=== PATIENT | female | born 2000 | race Caucasian/White ===

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

== ENCOUNTER 2020-02-28 12:04 | Emergency (ER) | payer OTHER, SELFPAY ==
[2020-02-07 13:10] VITALS: BMI 28.3
[2020-02-28 12:06] VITALS: BP 137/78; PULSE 120; RESP 18; TEMP 37.2; O2SAT 99; BMI 35.4
[2020-02-28 12:26] LABS: Absolute Lymphocyte Count 3.07 X10^3/uL (0.83-4.51); Absolute Neutrophil Count 4.7 X10^3/uL (2.0-7.7); Basophil# 0.05 X10^3/uL; Basophil% 0.6 % (0-1); Eosinophil# 0.12 X10^3/uL; Eosinophils% 1.4 % (0-5); Hematocrit 44.9 % (37-47); Hemoglobin 14.5 g/dL (12.0-15.0); Lymphocyte # 3.07 X10^3/ul (4.0); Lymphocyte % 36.4 % (19-41); Mean Corp Hgb Conc 32.3 g/dL (32-36); Mean Corpuscular Hgb 27.3 pg (27.0-32.0); Mean Corpuscular Volume 84.4 fL (81-99); Mean Platelet Vol. 9.2 fl (6.2-12.0); Monocyte# 0.45 X10^3/uL; Monocyte% 5.3 % (0-10); NRBC Flagged by Analyzer 0 % (0-5); Neutrophil # 4.73 X10^3/uL (2.7-7.7); Neutrophil % 56.1 % (47-70); Platelet Count 323 K/mm3 (150-450); RBC Distribution Width CV 13.2 % (11.6-14.6); RBC Distribution Width SD 40.4 fl (35.1-43.9); Red Blood Count 5.32 M/mm3 (4.2-5.4); White Blood Count 8.4 K/mm3 (4.4-11.0)
--- NOTE | 2020-02-28 12:46 | ED.VISSUMM ---
- ER Visit Summary Date of Service: 02/28/20 Chief Complaint: Abdominal pain History of Present Illness: The patient is a 19 F who presents with abdominal pain that began yesterday evening. Patient states pain is over the right upper quadrant and right mid abdomen. Patient states her pain is constant aching. Patient states it is worse after eating and with movement. Patient states it is also worse with coughing and deep breathing. Patient admits to some nausea but denies any vomiting. Patient denies any hematemesis or coffee-ground emesis. Patient admits to some diarrhea but denies any melena or hematochezia. Patient denies any dysuria or hematuria. Physical Examination: Vital signs are stable. Patient is afebrile. Patient is in no acute distress. Oral mucosa is pink and moist. Neck is supple. Trachea is midline. There is no JVD. Heart was regular rate and rhythm. Lungs are clear and equal bilaterally. Abdomen is soft. Bowel sounds are normal. There is right upper and right mid abdominal tenderness. There is no rebound or guarding noted. Cranial nerves II through XII are intact. There are no focal motor or sensory deficits noted peer extremities are intact. There is no calf tenderness or edema. Test Results: CBC and comprehensive metabolic profile were within normal limits. Lipase was normal. Urinalysis does not show any evidence of urinary tract infection. Emergency Department Course and Treatment: Patient was given IV fluids. Patient was feeling better on reevaluation. Patient was texting on her phone on reevaluation. Patient was advised of her lab results. Patient was given a prescription for Prilosec. Patient was also given a prescription for Zofran to take as needed. Patient was instructed to start with a liquid diet and advance as tolerated. Patient was instructed to follow-up with her primary care physician in 5 to 7 days for further evaluation. Patient understood and was agreeable with the plan. All questions were answered. Disposition: Discharge home Impression: Abdominal pain This note was generated with [employer] dictation software. It may contain incorrect words, spelling, and punctuation that were not noted in review of the chart prior to signing ED Disposition - Plan for ED Patient: Disposition: Home or Assisted Living Diagnosis: Abdominal pain Instructions: ED Abdominal Pain Unkn Cause Fem Prescriptions: Omeprazole [Prilosec] 20 mg PO DAILY #30 cap Prescription Printed Ondansetron [Zofran Odt] 4 mg PO Q8H PRN PRN #10 tab PRN Reason: Nausea Prescription Printed Referrals: Panda Truong MD [STAFF PHYSICIAN] - 5-7 Days
[2020-02-28 12:47] LABS: Anion Gap 6 (5-15); BUN 12 mg/dL (7-18); BUN/Creat Ratio 13.9 RATIO (10-20); Calcium,Total 9.4 mg/dL (8.5-10.1); Chloride 107 mmol/L (98-107); Creatinine, Serum 0.86 mg/dL (0.55-1.02); EST Glomerular Filtration Rate 89 mL/min (>60); Est Glom Filt Rate - Afr Amer 108 mL/min (>60); Glucose 80 mg/dL (74-106); Potassium 4.6 mmol/L (3.5-5.1); Sodium Level 138 mmol/L (136-145)
[2020-02-28] MEDS: 0.9% Normal Saline 1,000 ML 1000 ML IV (12:53)
[2020-02-28] MEDS: Ondansetron 4 MG/2 ML Vial IV (12:53)
[2020-02-28 12:55] VITALS: BP 137/78; PULSE 120; RESP 18; TEMP 37.2; O2SAT 99
[2020-02-28 13:44] LABS: Mucous, Urine 0 SEEN /hpf (<or=2+); Red Blood Cells-Urine 0 SEEN /hpf (0-5)
[2020-02-28 13:45] LABS: Color, Urine Yellow (Yellow); Glucose, Dipstick Normal (Normal); Ketone-Dipstick 5 mg/dl (Negative); Leukocyte Esterase-Dipstick 100 /ul (Negative); Nitrite-Dipstick Negative (Negative); Occult Blood-Urine Negative /ul (Negative); Protein-Dipstick Negative (Negative); Specific Gravity, Urine 1.025 (1.002-1.030); Urine Bilirubin Dipstick Negative (Negative); Urine Clarity Cloudy (Clear); Urine Urobilinogen Normal (Normal)
[2020-02-28 13:56] LABS: Bacteria 1+ /hpf (None Seen); Squamous Epithelial Cells - UA 0-5 SEEN /hpf (5-10); White Blood Cells 0-5 SEEN /hpf (0-5)
[2020-02-28 13:59] LABS: Internal QC Validated? YES +Cl - CLEAR BKGD; Pregnancy, Urine Negative Negative
[2020-02-28 14:14] VITALS: BP 128/64; PULSE 74; RESP 16; O2SAT 99
[2020-02-28 14:24] LABS: AST(SGOT) 31 U/L (15-37); Alanine Aminotransfer ALT/SGPT 24 U/L (13-56); Albumin, Serum 3.8 g/dL (3.2-5.0); Alkaline Phosphatase 68 U/L (45-117); Bilirubin, Direct 0.08 mg/dL (0.00-0.30); Globulin 4.7 g/dL (2.2-4.2); Lipase 98 U/L (73-393); Protein, Total 8.5 g/dL (6.4-8.2)
[2020-02-28 15:45] VITALS: BP 128/79; PULSE 81; RESP 18; O2SAT 99
--- NOTE | 2020-02-28 15:46 | ED.RN ---
THIS NURSE REVIEWED D/C INSTRUCTIONS WITH PT. PT VERBALIZED UNDERSTANDING OF INSTRUCTIONS. IV D/C. IV CATHETER INTACT. PT TOLERATED WELL. PT DENIES FURTHER NEEDS OR QUESTIONS AT THIS TIME. PT AMBULATES FROM ROOM ON OWN WITHOUT ASSISTANCE FROM STAFF
== END 2020-02-28 15:48 | disposition home or self-care (01) ==
PROVIDERS: Emergency Provider Emergency Medicine
DX: R10.11 Right upper quadrant pain (principal); E66.9 Obesity, unspecified; F17.290 Nicotine dependence, other tobacco product, uncomplicated
CPT/HCPCS: 80048; 80076; 81001; 81025; 83690; 85025; 96361; 96374; 99283; J7030; A4216; J2405

== ENCOUNTER → 2020-07-13 | Outpatient (CLI) | payer OTHER, SELFPAY ==
[2020-07-13 14:18] VITALS: BMI 37.0
[2020-07-13 20:34] LABS: Chlamydia Trachomatis by PCR Negative (Negative); Neisserai gonorrhoeae by PCR Negative (Negative); Probe Check PASS; Sample Adequacy Control PASS; Specimen Processing Control PASS
== END | disposition home or self-care (01) ==
LOC: LABSPEC 17:10
PROVIDERS: Referring Provider Nurse Practitioner Women's Health; Visit Provider Nurse Practitioner Women's Health
DX: R10.2 Pelvic and perineal pain (principal)
CPT/HCPCS: 87491; 87591

== ENCOUNTER → 2020-07-14 13:25 | Outpatient (CLI) | payer OTHER, SELFPAY ==
[2020-07-13 14:18] VITALS: BMI 37.0
--- NOTE | 2020-07-14 13:27 | US_ITS ---
STUDY: ULTRASOUND OF THE FEMALE PELVIS - COMPLETE REASON FOR EXAM: Female, 20 years old. INTERMITTENT BILAT PELVIC PAIN -- HEAVY MENSES LMP: 07/13/2020. TECHNIQUE: Transabdominal and Transvaginal TECHNICAL QUALITY: Adequate. COMPARISON: None. FINDINGS: The uterus is retroverted and is in a midline position. The uterus measures 10.7 cm x 6.1 cm x 3.6 cm. Normal uterine cervix. The endometrium measures 7 mm in thickness, and is hyperechoic. There is no demonstrated endometrial mass. There is no demonstrated myometrial mass. I.U.D. - The patient does not have an I.U.D. The right ovary is visualized. The right ovary measures 3.1 cm x 3 cm x 2.5 cm. There is no right ovarian cyst or ovarian mass. There is no visualized right adnexal mass or complex lesion. There is normal arterial and normal venous vascularity. The left ovary is visualized. The left ovary measures 4.5 cm x 4.1 centimeter x 2.1 cm. There is a 3.1 cm x 2 cm x 0.8 cm cyst in the left ovary with low-level echoes within it. This may represent a small hemorrhagic cyst. There is no visualized left adnexal mass or complex lesion. There is normal arterial and normal venous vascularity. There is no fluid in the cul-de-sac. US/Pelvic (Non ) IMPRESSION: 3.1 cm x 2 cm x 0.8 cm cyst in the left ovary with low-level echoes within it suggestive of a small hemorrhagic cyst. Follow-up is recommended. Electronically Signed: Chad Elizabeth, at 14:47 EST , Service support ,
--- NOTE | 2020-07-14 13:27 | US_ITS ---
STUDY: ULTRASOUND OF THE FEMALE PELVIS - COMPLETE REASON FOR EXAM: Female, 20 years old. INTERMITTENT BILAT PELVIC PAIN -- HEAVY MENSES LMP: 07/13/2020. TECHNIQUE: Transabdominal and Transvaginal TECHNICAL QUALITY: Adequate. COMPARISON: None. FINDINGS: The uterus is retroverted and is in a midline position. The uterus measures 10.7 cm x 6.1 cm x 3.6 cm. Normal uterine cervix. The endometrium measures 7 mm in thickness, and is hyperechoic. There is no demonstrated endometrial mass. There is no demonstrated myometrial mass. I.U.D. - The patient does not have an I.U.D. The right ovary is visualized. The right ovary measures 3.1 cm x 3 cm x 2.5 cm. There is no right ovarian cyst or ovarian mass. There is no visualized right adnexal mass or complex lesion. There is normal arterial and normal venous vascularity. The left ovary is visualized. The left ovary measures 4.5 cm x 4.1 centimeter x 2.1 cm. There is a 3.1 cm x 2 cm x 0.8 cm cyst in the left ovary with low-level echoes within it. This may represent a small hemorrhagic cyst. There is no visualized left adnexal mass or complex lesion. There is normal arterial and normal venous vascularity. There is no fluid in the cul-de-sac. US/Transvaginal Non- IMPRESSION: 3.1 cm x 2 cm x 0.8 cm cyst in the left ovary with low-level echoes within it suggestive of a small hemorrhagic cyst. Follow-up is recommended. Electronically Signed: Chad Elizabeth, at 14:47 EST , Service support ,
== END ==
LOC: OPUS 13:26
PROVIDERS: Referring Provider Nurse Practitioner Women's Health; Visit Provider Nurse Practitioner Women's Health
DX: R10.2 Pelvic and perineal pain (principal)
CPT/HCPCS: 76830; 76856; 93976

== ENCOUNTER 2020-12-02 23:21 | Emergency (ER) | payer OTHER, SELFPAY ==
[2020-11-01 10:36] VITALS: BMI 35.4
[2020-12-02 23:22] VITALS: BP 140/81; PULSE 126; RESP 18; TEMP 36; O2SAT 97; BMI 36.8
--- NOTE | 2020-12-02 23:42 | EX.ED.DYSGE1 ---
HPI History of Present Illness Chief Complaint: Abd Pain Narrative Narrative: Patient presents with left lower abdominal pain. She describes an achy pain most mainly when she sits and moves and bends. PFSH PFSH Home Medications desogestrel 0.15 mg-ethinyl estradiol 0.03 mg tablet 1 tab PO QDAY #84 tab 07/13/20 [Rx Last Taken Unknown] azithromycin 250 mg tablet See Rx Instructions PO .COMPLEX #6 tab 11/01/20 [Rx Last Taken Unknown] ondansetron HCl 4 mg tablet 4 mg PO Q8H PRN #10 tab 11/01/20 [Rx Last Taken Unknown] Allergy/AdvReac Type Severity Reaction Status Date / Time amoxicillin trihydrate Allergy Chest Verified 11/01/20 10:37 [From Augmentin] tightness potassium clavulanate Allergy Chest Verified 11/01/20 10:37 [From Augmentin] tightness Family History Grandmother Breast cancer HER2-positive carcinoma of breast Social History current occupational status: employed 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 Smoking Status: Current every day smoker tobacco type: cigarettes Smokeless tobacco user: dissolvable tobacco alcohol intake: current alcohol intake frequency: holidays/special occasions only substance use type: marijuana caffeine: Yes what type of physical activity do you participate in: walking seatbelt use: always do you feel safe at home: Yes ROS ROS ED ROS Narrative ROS General: Denies fever, chills, sweats Eyes: Denies visual changes, blurred vision, double vision ENT: Denies ear pain, rhinorrhea, sore throat Cardiovascular: Denies chest pain, palpitations, heart racing Respiratory: Denies dyspnea, cough, sputum, dyspnea on exertion, orthopnea,PND GI: See HPI : Denies dysuria, hematuria, frequency Musculoskeletal: Denies myalgias, arthralgias, neck pain, back pain Skin: Denies rash, abscess, abrasions Neuro: Denies headache, weakness, paresthesia Psych: Denies depression, anxiety Endo: Denies polyuria, polydipsia, polyphagia Heme: Denies easy bruising, easy bleeding, lymphadenopathy Allergy: Denies hives, swelling EXAM Physical Exam Narrative Exam Narrative: Vital signs reviewed General: Well-nourished well-developed Head: Normocephalic atraumatic Eyes: Pupils equal round and reactive to light extraocular movements intact ENT: TMs clear no hemotympanum no trauma Neck: Nontender full range of motion Cardiovascular: Regular rate rhythm no murmurs normal S1-S2 Respiratory: No distress clear to auscultation bilaterally chest nontender Abdomen: Soft nontender nondistended normal bowel sounds no masses Back: Nontender no CVA tenderness Extremities: Nontender active range of motion ?4 extremities no trauma Skin: Normal color no trauma Neuro alert oriented cranial nerves II through XII intact normal strength sensation reflexes Const Vital Signs: 12/02/20 23:22 Temperature 96.8 F L Temperature Source Temporal Pulse Rate 126 H Respiratory Rate 18 Blood Pressure 140/81 H Blood Pressure Mean 100 Pulse Ox 97 Oxygen Delivery Method Room Air MDM MDM MDM Narrative Medical decision making narrative: Patient resting comfortably. Pain medication. Lab work obtained. Lab work unremarkable including CBC BMP liver function test and lipase. negative. Urinalysis negative. At this time this may be a ovarian cyst. I do not feel she needs acute imaging. We will follow-up as an outpatient with her SOFTWARE DEVELOPMENT ADVISOR and family doctor Lab Data Labs: Laboratory Results - last 24 hr 12/02/20 12/03/20 12/03/20 23:35 00:02 00:02 WBC 10.7 RBC 4.82 Hgb 13.1 Hct 39.7 MCV 82.4 MCH 27.2 MCHC 33.0 RDW Std Deviation 37.7 RDW Coeff of Maryam 12.6 Plt Count 266 MPV 8.9 Immature Gran % (Auto) 0.300 Neut % (Auto) 56.2 Lymph % (Auto) 35.6 Gray % (Auto) 6.6 Eos % (Auto) 0.8 Baso % (Auto) 0.5 Absolute Neuts (auto) 6.0 Absolute Lymphs (auto) 3.81 Nucleated RBC % 0 Sodium 138 Potassium 3.9 Chloride 106 Carbon Dioxide 28.0 Anion Gap 4 L BUN 9 Creatinine 0.88 Estim Creat Clear Calc 76.95 Est GFR (MDRD) Af Amer 105 Est GFR (MDRD) Non-Af 87 BUN/Creatinine Ratio 10.3 Glucose 94 Calcium 9.2 Total Bilirubin 0.20 AST 14 L ALT 29 Alkaline Phosphatase 64 Total Protein 7.5 Albumin 3.4 Globulin 4.1 Albumin/Globulin Ratio 0.8 L Lipase 89 Serum , Qual Urine Color Yellow Urine Clarity Clear Urine pH 7.0 Ur Specific [place] 1.010 Urine Protein Negative Urine Glucose (UA) Normal Urine Ketones Negative Urine Occult Blood Negative Urine Nitrite Negative Urine Bilirubin Negative Urine Urobilinogen Normal Ur Leukocyte Esterase Negative Urine RBC 0 SEEN Urine WBC 0 SEEN Ur Squamous Epith Cells 5-10 SEEN Urine Bacteria 0 SEEN Urine Mucus 0 SEEN 12/03/20 00:02 WBC RBC Hgb Hct MCV MCH MCHC RDW Std Deviation RDW Coeff of Maryam Plt Count MPV Immature Gran % (Auto) Neut % (Auto) Lymph % (Auto) Gray % (Auto) Eos % (Auto) Baso % (Auto) Absolute Neuts (auto) Absolute Lymphs (auto) Nucleated RBC % Sodium Potassium Chloride Carbon Dioxide Anion Gap BUN Creatinine Estim Creat Clear Calc Est GFR (MDRD) Af Amer Est GFR (MDRD) Non-Af BUN/Creatinine Ratio Glucose Calcium Total Bilirubin AST ALT Alkaline Phosphatase Total Protein Albumin Globulin Albumin/Globulin Ratio Lipase Serum , Qual NEGATIVE Urine Color Urine Clarity Urine pH Ur Specific [place] Urine Protein Urine Glucose (UA) Urine Ketones Urine Occult Blood Urine Nitrite Urine Bilirubin Urine Urobilinogen Ur Leukocyte Esterase Urine RBC Urine WBC Ur Squamous Epith Cells Urine Bacteria Urine Mucus Discharge Plan Triage Chief Complaint: Abd Pain ED Provider: Juwan Crespo Dx/Rx/DC Orders Prescriptions: No Action desogestrel-ethinyl estradiol [Apri] 0.15-0.03 mg tablet 1 tab PO QDAY Qty: 84 RF: 4 ondansetron HCl [Zofran] 4 mg tablet 4 mg PO Q8H PRN (Reason: nausea and vomiting) Qty: 10 RF: 0 azithromycin 250 mg tablet See Rx Instructions PO .COMPLEX Qty: 6 RF: 0 Primary Care Provider: Care Physician,No Primary
[2020-12-02 23:52] LABS: Bacteria 0 SEEN /hpf (None Seen); Mucous, Urine 0 SEEN /hpf (<or=2+); Red Blood Cells-Urine 0 SEEN /hpf (0-5); White Blood Cells 0 SEEN /hpf (0-5)
[2020-12-02 23:53] LABS: Color, Urine Yellow (Yellow); Glucose, Dipstick Normal (Normal); Ketone-Dipstick Negative (Negative); Leukocyte Esterase-Dipstick Negative /ul (Negative); Nitrite-Dipstick Negative (Negative); Occult Blood-Urine Negative /ul (Negative); Protein-Dipstick Negative (Negative); Urine Bilirubin Dipstick Negative (Negative); Urine Clarity Clear (Clear); Urine Urobilinogen Normal (Normal)
[2020-12-02 23:59] LABS: Squamous Epithelial Cells - UA 5-10 SEEN /hpf (5-10)
[2020-12-03 00:06] LABS: Absolute Lymphocyte Count 3.81 X10^3/uL (0.83-4.51); Basophil# 0.05 X10^3/uL; Basophil% 0.5 % (0-1); Eosinophil# 0.09 X10^3/uL; Eosinophils% 0.8 % (0-5); Hematocrit 39.7 % (37-47); Hemoglobin 13.1 g/dL (12.0-15.0); Lymphocyte # 3.81 X10^3/ul (0.83-4.51); Lymphocyte % 35.6 % (19-41); Mean Corpuscular Hgb 27.2 pg (27.0-32.0); Mean Corpuscular Volume 82.4 fL (81-99); Mean Platelet Vol. 8.9 fl (6.2-12.0); Monocyte# 0.71 X10^3/uL; Monocyte% 6.6 % (0-10); NRBC Flagged by Analyzer 0 % (0-5); Neutrophil % 56.2 % (47-70); Platelet Count 266 K/mm3 (150-450); RBC Distribution Width CV 12.6 % (11.6-14.6); RBC Distribution Width SD 37.7 fl (35.1-43.9); Red Blood Count 4.82 M/mm3 (4.2-5.4); White Blood Count 10.7 K/mm3 (4.4-11.0)
[2020-12-03 00:15] LABS: Internal QC Validated? YES +Cl - CLEAR BKGD; Pregnancy, Serum, hCG Quali. NEGATIVE Negative
[2020-12-03 00:23] LABS: ALB/GLOB Ratio 0.8 RATIO (0.9-2.4); AST(SGOT) 14 U/L (15-37); Alanine Aminotransfer ALT/SGPT 29 U/L (13-56); Albumin, Serum 3.4 g/dL (3.2-5.0); Alkaline Phosphatase 64 U/L (45-117); Anion Gap 4 (5-15); BUN 9 mg/dL (7-18); BUN/Creat Ratio 10.3 RATIO (10-20); Calcium,Total 9.2 mg/dL (8.5-10.1); Chloride 106 mmol/L (98-107); Creatinine, Serum 0.88 mg/dL (0.55-1.02); EST Glomerular Filtration Rate 87 mL/min (>60); Est Glom Filt Rate - Afr Amer 105 mL/min (>60); Estimated Creatinine Clearance 76.95 ml/min; Globulin 4.1 g/dL (2.2-4.2); Glucose 94 mg/dL (74-106); Lipase 89 U/L (73-393); Potassium 3.9 mmol/L (3.5-5.1); Protein, Total 7.5 g/dL (6.4-8.2); Sodium Level 138 mmol/L (136-145)
== END 2020-12-03 00:40 | disposition home or self-care (01) ==
PROVIDERS: Emergency Provider Emergency Medicine
DX: R10.32 Left lower quadrant pain (principal); F17.210 Nicotine dependence, cigarettes, uncomplicated
CPT/HCPCS: 80053; 81001; 83690; 84703; 85025; 99285; A4216

== ENCOUNTER → 2021-05-12 14:56 | Outpatient (CLI) | payer OTHER, SELFPAY ==
[2021-05-12 15:38] LABS: Bacteria 0 SEEN /hpf (None Seen); Mucous, Urine 0 SEEN /hpf (<or=2+); Red Blood Cells-Urine 0 SEEN /hpf (0-5)
[2021-05-12 15:44] LABS: Color, Urine Yellow (Yellow); Glucose, Dipstick Normal (Normal); Ketone-Dipstick Negative (Negative); Leukocyte Esterase-Dipstick 500 /ul (Negative); Nitrite-Dipstick Negative (Negative); Occult Blood-Urine 25 /ul (Negative); Protein-Dipstick 30 mg/dl (Negative); Specific Gravity, Urine 1.015 (1.002-1.030); Urine Bilirubin Dipstick Negative (Negative); Urine Clarity Clear (Clear); Urine Urobilinogen Normal (Normal)
[2021-05-12 15:50] LABS: Squamous Epithelial Cells - UA 10-25 SEEN /hpf (5-10); White Blood Cells 0-5 SEEN /hpf (0-5)
== END ==
PROVIDERS: Visit Provider Physician Assistant
DX: R10.2 Pelvic and perineal pain (principal)
CPT/HCPCS: 81001; 87086; 87088

== ENCOUNTER 2022-01-20 21:58 | Emergency (ER) | payer SELFPAY ==
[2022-01-20 22:00] VITALS: BP 153/97; PULSE 151; RESP 16; TEMP 36.3; O2SAT 99; BMI 38.7
--- NOTE | 2022-01-20 22:09 | EKG12_ITS ---
Test Reason : DYSRHYTHMIA Blood Pressure : / mmHG Vent. Rate : 141 BPM Atrial Rate : 141 BPM P-R Int : 136 ms QRS Dur : 070 ms QT Int : 284 ms P-R-T Axes : 032 069 015 degrees QTc Int : [address]cardia Nonspecific [address] abnormality Abnormal ECG Confirmed by RUPAL ROWE, JANET ([id number]), editor map ROBERT MARTINEZ ([id number]) on 01/21/2022 10:22:11 AM Referred By: MELI Confirmed By:JANET GOLDSMITH MD
[2022-01-20 22:12] VITALS: PULSE 143; RESP 16; O2SAT 96
[2022-01-20] MEDS: 0.9% Normal Saline 1,000 ML 999 ML IV (22:34)
[2022-01-20] MEDS: LORazepam 2 MG/ML Syringe 0.5 MG IV (22:34)
--- NOTE | 2022-01-20 22:41 | EX.ED.DYSGE1 ---
HPI History of Present Illness Chief Complaint: Palpitations Narrative Narrative: Patient is a 21-year-old female with past medical history of anxiety. She states this evening she was playing a card game when all of a sudden she felt like her heart was racing. She denies any chest pain or shortness of breath associated with this. She denies any past medical history of cardiac dysrhythmia. She states she does not use caffeine or excess nicotine and denies any illicit drug use. She states that she cannot calm down secondary to the palpitations and therefore presents to the hospital for evaluation. She also denies any recent surgery travel or history of DVT/PE. [facility] Medical History Encounter for screening for COVID-19 URI (upper respiratory infection) Urinary tract infection with hematuria Home Medications NK 01/20/22 [History Last Taken Unknown] Allergy/AdvReac Type Severity Reaction Status Date / Time amoxicillin trihydrate Allergy Chest Verified 01/20/22 22:02 [From Augmentin] tightness potassium clavulanate Allergy Chest Verified 01/20/22 22:02 [From Augmentin] tightness Family History (Updated 06/01/21 @ 08:20 by Alexia Parks) Grandmother Breast cancer HER2-positive carcinoma of breast Other CAD (coronary artery disease) Diabetes Hypertension Kidney disease Thyroid disorder Social History (Updated 06/01/21 @ 08:20 by Alexia Parks) current occupational status: employed current occupation: [employer] Smoking Status: Former smoker Smokeless tobacco user: dissolvable tobacco alcohol intake: current alcohol intake frequency: holidays/special occasions only substance use type: does not use caffeine: Yes what type of physical activity do you participate in: walking seatbelt use: always do you feel safe at home: Yes ROS ROS ED Constitutional Constitutional ED: Denies chills or fever(s) ENT ENT ED: Denies sore throat Cardiovascular Cardiovascular: Reports palpitations and racing heartbeat; Denies chest pain Respiratory/Chest Respiratory/Chest: Denies cough or dyspnea Gastrointestinal Gastrointestinal: Denies abdominal pain, diarrhea, nausea or vomiting Genitourinary Genitourinary ED: Denies dysuria Musculoskeletal Musculoskeletal: Denies myalgias Integumentary Denies rash Neurologic Neurologic: Denies headache(s) Psychiatric Psychiatric: Reports anxiety Hematologic/Lymphatic Hematologic/Lymphatic: Denies easy bleeding or easy bruising EXAM Physical Exam Const Vital Signs: 01/20/22 22:00 01/20/22 22:12 01/20/22 22:13 Temperature 97.4 F L Temperature Source Temporal Pulse Rate 151 H 143 H Respiratory Rate 16 16 Respiratory Effort Normal Non-Labored Blood Pressure 153/97 H Blood Pressure Mean 115 Pulse Ox 99 96 Oxygen Delivery Method Room Air Room Air 01/20/22 23:14 Temperature Temperature Source Pulse Rate 112 H Respiratory Rate 17 Respiratory Effort Blood Pressure 123/81 H Blood Pressure Mean 95 Pulse Ox 98 Oxygen Delivery Method Room Air Positive well nourished and well developed General Appearance ED: well developed Eyes PERRL and EOMs intact bilaterally Neck supple Neck Narrative: No nodular goiter or enlargement of the thyroid Resp normal respiratory effort and clear to auscultation bilaterally Cardio regular rhythm Rate: tachycardic and other Other Details: Tachycardic rate with regular rhythm radial pulses are plus 2 out of 4 bilaterally are equal and symmetric Extremity normal to inspection Extremity Narrative: No asymmetric edema no pitting edema negative Homans' sign bilaterally Neuro oriented x3 and CN's II-XII intact bilaterally Sensorium / Orientation: alert Psych Psych Narrative: Patient has a nervous/anxious affect Skin no rashes or lesions noted MDM MDM MDM Narrative Medical decision making narrative: Patient presented to the ER tachycardic but EKG showed sinus rhythm and not a cardiac dysrhythmia. Basic blood work was obtained because of the tachycardia and revealed no clinically significant finding. Patient was given IV hydration and was able to relax and her anxiety reduced as well as her heart rate. At this time she is been on the monitor for approximately 2 hours with no cardiac dysrhythmia noted. As the work-up does not reveal any type of abnormal heart rhythm and no electrolyte disturbance and she has had improvement in her heart rate I do not feel there is need for further evaluation in the ER. Patient can be discharged at this time and can follow-up with family doctor to discuss need for Holter monitor to see if there is an abnormal rhythm that was not picked up while on the ER visit Lab Data Attestation: I reviewed the patient's lab results. Labs: Laboratory Results - last 24 hr 01/20/22 01/20/22 01/20/22 22:17 22:17 22:17 WBC 10.9 RBC 4.99 Hgb 13.8 Hct 40.4 MCV 81.0 MCH 27.7 MCHC 34.2 RDW Std Deviation 38.1 RDW Coeff of Maryam 13.1 Plt Count 331 MPV 9.1 Immature Gran % (Auto) 0.300 Neut % (Auto) 54.4 Lymph % (Auto) 36.6 [place] % (Auto) 7.5 Eos % (Auto) 0.6 Baso % (Auto) 0.6 Absolute Neuts (auto) 5.9 Absolute Lymphs (auto) 3.98 Nucleated RBC % 0 D-Dimer Quant (PE/DVT) Sodium 140 Potassium 3.6 Chloride 106 Carbon Dioxide 25.0 Anion Gap 9 BUN 12 Creatinine 0.83 Estim Creat Clear Calc 80.91 Est GFR (MDRD) Af Amer 111 Est GFR (MDRD) Non-Af 92 BUN/Creatinine Ratio 14.5 Glucose 144 H Calcium 9.6 Magnesium 2.0 TSH 4.84 H Urine Test Negative 01/20/22 22:40 WBC RBC Hgb Hct MCV MCH MCHC RDW Std Deviation RDW Coeff of Maryam Plt Count MPV Immature Gran % (Auto) Neut % (Auto) Lymph % (Auto) [place] % (Auto) Eos % (Auto) Baso % (Auto) Absolute Neuts (auto) Absolute Lymphs (auto) Nucleated RBC % D-Dimer Quant (PE/DVT) 0.32 Sodium Potassium Chloride Carbon Dioxide Anion Gap BUN Creatinine Estim Creat Clear Calc Est GFR (MDRD) Af Amer Est GFR (MDRD) Non-Af BUN/Creatinine Ratio Glucose Calcium Magnesium TSH Urine Test Discharge Plan Triage Chief Complaint: Palpitations ED Provider: Jefe Washington Dx/Rx/DC Orders Clinical Impression: Heart palpitations, Sinus tachycardia Instructions: ED Palpitations Prescriptions: No Action NK Primary Care Provider: Denise Muñoz Referrals: Denise Muñoz MD [Primary Care Provider] - Activity Restrictions/Additional Instructions: Please follow-up with your family doctor to discuss obtaining a Holter monitor to further assess any cause of your heart palpitations. Please return to the ER should you have any further concerns Disposition Disposition: Home, Self Care
[2022-01-20 22:43] LABS: Absolute Lymphocyte Count 3.98 X10^3/uL (0.83-4.51); Absolute Neutrophil Count 5.9 X10^3/uL (2.0-7.7); Basophil# 0.06 X10^3/uL; Basophil% 0.6 % (0-1); Eosinophil# 0.06 X10^3/uL; Eosinophils% 0.6 % (0-5); Hematocrit 40.4 % (37-47); Hemoglobin 13.8 g/dL (12.0-15.0); Lymphocyte # 3.98 X10^3/ul (0.83-4.51); Lymphocyte % 36.6 % (19-41); Mean Corp Hgb Conc 34.2 g/dL (32-36); Mean Corpuscular Hgb 27.7 pg (27.0-32.0); Mean Platelet Vol. 9.1 fl (6.2-12.0); Monocyte# 0.82 X10^3/uL; Monocyte% 7.5 % (0-10); NRBC Flagged by Analyzer 0 % (0-5); Neutrophil # 5.92 X10^3/uL (2.7-7.7); Neutrophil % 54.4 % (47-70); Platelet Count 331 K/mm3 (150-450); RBC Distribution Width CV 13.1 % (11.6-14.6); RBC Distribution Width SD 38.1 fl (35.1-43.9); Red Blood Count 4.99 M/mm3 (4.2-5.4); White Blood Count 10.9 K/mm3 (4.4-11.0)
[2022-01-20 22:46] LABS: Internal QC Validated? YES +Cl - CLEAR BKGD; Pregnancy, Urine Negative Negative
[2022-01-20 23:06] LABS: D-Dimer Quantitative (DVT/PE) 0.32 FEU/ug/m (0.27-0.49)
[2022-01-20 23:07] LABS: Anion Gap 9 (5-15); BUN 12 mg/dL (7-18); BUN/Creat Ratio 14.5 RATIO (10-20); Calcium,Total 9.6 mg/dL (8.5-10.1); Chloride 106 mmol/L (98-107); Creatinine, Serum 0.83 mg/dL (0.55-1.02); EST Glomerular Filtration Rate 92 mL/min (>60); Est Glom Filt Rate - Afr Amer 111 mL/min (>60); Estimated Creatinine Clearance 80.91 ml/min; Glucose 144 mg/dL (74-106); Potassium 3.6 mmol/L (3.5-5.1); Sodium Level 140 mmol/L (136-145); Thyroid Stim Hormone (TSH) 4.84 uIU/mL (0.358-3.74)
[2022-01-20 23:14] VITALS: BP 123/81; PULSE 112; RESP 17; O2SAT 98
[2022-01-21 00:26] VITALS: BP 106/73; PULSE 106; RESP 18; O2SAT 96
== END 2022-01-21 00:28 | disposition home or self-care (01) ==
PROVIDERS: Emergency Provider Emergency Medicine; PCP Internal Medicine; Visit Provider Emergency Medicine
DX: R00.2 Palpitations (principal); F41.9 Anxiety disorder, unspecified; Z87.891 Personal history of nicotine dependence
CPT/HCPCS: 80048; 81025; 83735; 84443; 85025; 85379; 93005; 96361; 96374; 99283; J7030

== ENCOUNTER 2022-06-15 18:58 | Emergency (ER) | payer SELFPAY ==
[2022-06-15 18:59] VITALS: BP 138/87; PULSE 115; RESP 16; TEMP 36.6; O2SAT 98; BMI 40.2
--- NOTE | 2022-06-15 19:13 | EDS_ITS ---
HPI HPI - URI History of Present Illness Chief Complaint: Chest Other Informant: patient Onset/Context/Timing Onset: Today Current Severity: Mild Maximum Severity: Mild Associated Symptoms Associated Symptoms: Positive for Nonproductive cough; Negative for Hemoptysis Narrative Narrative: 21-year-old female exam past medical history. No significant surgeries. Says she had URI type symptoms last several days. Today has some burning discomfort in her chest. Denies any hemoptysis. No history of DVT or PE. No recent travel, surgery or immobilization. No leg pain or swelling. She is on control. She is a nonsmoker. Denies any shortness of breath. Prior similar symptoms: Yes Recent Illness/Hospitalization: No ROS ROS ED ROS Narrative Cough. Review of Systems ROS Unobtainable: Denies due to encephalopathy Constitutional Constitutional ED: Denies chills or fever(s) Eyes Eyes: Denies blurry vision ENT ENT ED: Denies ear pain Cardiovascular Cardiovascular: Reports chest pain Respiratory/Chest Respiratory/Chest: Reports cough Gastrointestinal Gastrointestinal: Reports diarrhea; Denies abdominal pain, constipation, melena, nausea or vomiting Genitourinary Genitourinary ED: Denies dysuria or hematuria Musculoskeletal Musculoskeletal: Denies arthralgias Integumentary Denies abscess Neurologic Neurologic: Denies headache(s) Psychiatric Psychiatric: Denies anxiety Endocrine Endocrinology: Denies cold intolerance Hematologic/Lymphatic Hematologic/Lymphatic: Denies easy bleeding or easy bruising Allergic/Immunologic Allergic/Immunologic ED: Denies mouth swelling or tongue swelling PFSH PFSH Medical History no medical history no medical history Home Medications escitalopram oxalate 10 mg tablet (Lexapro) 10 mg PO DAILY #90 tabs 05/06/22 [Rx Last Taken Unknown] prednisone 20 mg tablet 20 mg PO DAILY 06/15/22 [History Last Taken Unknown] Allergy/AdvReac Type Severity Reaction Status Date / Time aluminum Allergy Rash Verified 06/15/22 19:02 amoxicillin trihydrate Allergy Chest Verified 06/15/22 19:02 [From Augmentin] tightness potassium clavulanate Allergy Chest Verified 06/15/22 19:02 [From Augmentin] tightness Family History Grandmother Breast cancer HER2-positive carcinoma of breast Other CAD (coronary artery disease) Diabetes Hypertension Kidney disease Thyroid disorder Surgical History no surgical history no surgical history Social History current occupational status: employed current occupation: [employer] Smoking Status: Former smoker Smokeless tobacco user: dissolvable tobacco alcohol intake: current alcohol intake frequency: holidays/special occasions only substance use type: does not use caffeine: Yes what type of physical activity do you participate in: walking seatbelt use: always do you feel safe at home: Yes EXAM Physical Exam Narrative Exam Narrative: 21-year-old female no acute distress. Vital signs stable afebrile. Pulse ox 90% on room air. Clinically looks well. H EENT exam normal. Moist mucous membranes. Neck nontender. No JVD. Lungs clear to auscultation bilaterally. Heart regular rhythm rate about 110 no murmur. Abdomen soft nontender normal bowel sounds no peritoneal signs. Patient moving all 4 extremities. Calves are nontender without edema or cords. Equal symmetrical radial pulses. Back nontender. Skin unremarkable. Neurologically she is awake and alert. Const Vital Signs: 06/15/22 18:59 06/15/22 19:10 Temperature 98 F Temperature Source Temporal Pulse Rate 115 H Respiratory Rate 16 Respiratory Effort Non-Labored Blood Pressure 138/87 H Blood Pressure Mean 104 Pulse Ox 98 Oxygen Delivery Method Room Air Positive well nourished and well developed; Negative for cachectic or contractures General Appearance ED: well developed and NAD; Negative for cachectic, contractures, cyanotic, diaphoretic or pallor Nutritional Appearance: Negative for cachectic HEENT Reports moist mucous membranes; Denies dry mucous membranes normocephalic and atraumatic; Negative for scalp tenderness Face and Sinus: Negative for sinus tenderness Mouth ED: No dry mucous membranes Mouth: No dry mucous membranes Teeth and Gingiva: Negative for caries Throat: posterior oropharynx normal; Negative for tonsils abnormal or posterior oropharynx abnormal Eyes PERRL and EOMs intact bilaterally General Eye ED: Negative for pale conjunctiva or scleral icterus Neck no lymphadenopathy, supple, no meningeal signs and no JVD General: Negative for anterior neck swelling or lymphadenopathy Resp normal respiratory effort and clear to auscultation bilaterally Effort and Inspection: Negative for retractions Auscultation: Negative for rales, rhonchi or wheezes Cardio S1 normal heart sound, S2 normal heart sound and no murmurs Rate: tachycardic; Negative for regular rate or bradycardia Rhythm: regular rhythm; Negative for abnormal rhythm GI non-tender, non-distended and no masses Inspection: Negative for abdominal distention Auscultation: normoactive bowel sounds Palpation: soft; Negative for tender or guarding Back/Spine no CVA tenderness and normal ROM General Back: Negative for CVA tenderness Cervical Spine: Negative for cervical spine tenderness Thoracic Spine / Upper Back: Negative for thoracic spinal tenderness Lumbar Spine / Lower Back: Negative for lumbar spinal tenderness Sacrum: Negative for tenderness Extremity normal to inspection and full ROM General Extremety ED: Negative for cyanosis or tenderness General Extremity: Negative for cyanosis Neuro oriented x3 and no sensory deficits noted Sensorium / Orientation: alert, oriented to person, oriented to place and orie nted to time; Negative for orientation impaired, lethargic or stuporous Motor Exam: strength 5/5 throughout Psych mental status grossly normal Appearance: Negative for other Attitude: No agitated Mood & Affect: Negative for depressed, anxious or tearful Skin General Skin Exam: Negative for jaundice or pallor Lesions: no lesions Rashes: no rashes Trauma: Negative for abrasion MDM MDM MDM Narrative Medical decision making narrative: 21-year-old URI symptoms. Clinically looks well. Has no risk factors or reason to have a DVT. I am obtaining a chest x-ray I suspect that will be normal and she will be discharged home treated as a viral syndrome. Fluids and rest. Tylenol Motrin. Radiography Diagnostic Testing: Chest x-ray, portable, single view interpreted by myself shows no acute abnormality. Normal cardiac silhouette. Normal lung gutierrez. No infiltrate or pneumonia. Discharge Plan Triage Chief Complaint: Chest Other ED Provider: Sp Parada Dx/Rx/DC Orders Clinical Impression: Viral URI Instructions: ED URI, Viral, No Abx (Adult) Prescriptions: No Action prednisone 20 mg tablet 20 mg PO DAILY Label Comments: take 1 tablet by mouth once daily for 5 days escitalopram oxalate [Lexapro] 10 mg tablet 10 mg PO DAILY Qty: 90 3RF Primary Care Provider: Denise Muñoz Referrals: Denise Muñoz MD [Primary Care Provider] - 1 Week if not improving Activity Restrictions/Additional Instructions: Plenty of fluids and rest. Motrin for pain and inflammation Tylenol for pain. This appears to be a virus you have inflammation in your lungs which should improve. Follow-up if not improving or return if worse. Disposition Disposition: Home, Self Care
--- NOTE | 2022-06-15 19:17 | RAD_ITS ---
INDICATION: cough EXAMINATION/TECHNIQUE: X-RAY - XR Chest 1 View COMPARISON: None. FINDINGS: LINES/DEVICES: None. LUNGS: No consolidation, edema or effusion. No pneumothorax. MEDIASTINUM AND CARDIOVASCULAR STRUCTURES: Cardiac silhouette not enlarged. Central airways and mediastinal contour are unremarkable. BONES AND SOFT TISSUES: Unremarkable. RAD/Chest 1 View (Portable) IMPRESSION: No radiographic evidence of acute cardiopulmonary disease. Electronically Signed: Lo Cordon MD at 19:46 EST Reading Location ID and State: [id number] / Tel , Service support ,
[2022-06-15 19:34] VITALS: PULSE 80; RESP 15; O2SAT 97
== END 2022-06-15 19:35 | disposition home or self-care (01) ==
PROVIDERS: Emergency Provider Emergency Medicine; PCP Internal Medicine; Visit Provider Emergency Medicine
DX: J06.9 Acute upper respiratory infection, unspecified (principal); Z87.891 Personal history of nicotine dependence; Z79.899 Other long term (current) drug therapy
CPT/HCPCS: 71045; 99282

== ENCOUNTER 2022-07-02 11:20 | Emergency (ER) | payer SELFPAY ==
[2022-07-02 11:21] VITALS: BP 138/82; PULSE 152; RESP 16; TEMP 37.3; O2SAT 99; BMI 40.6
--- NOTE | 2022-07-02 11:40 | RAD_ITS ---
STUDY: X-RAY CHEST REASON FOR EXAM: Female, 22 years old. Cough, shortness of breath TECHNIQUE: PA and lateral views of the chest. COMPARISON: June 15, 2022 chest x-ray FINDINGS: The lungs are clear and expanded. There is no demonstrated pleural abnormality. Normal size heart. Normal mediastinum and shruti. Normal visualized pulmonary arteries. Normal visualized aortic arch and descending thoracic aorta. Normal visualized thoracic spine. Normal visualized ribs, clavicles, and shoulders. There is no demonstrated abnormality of the visualized soft tissue structures of the upper abdomen. RAD/Chest PA and Lateral IMPRESSION: Normal x-ray examination of the chest. Electronically Signed: Danielle Marie MD at 12:01 EST Reading Location ID and State: [facility] / [place] Tel , Service support ,
--- NOTE | 2022-07-02 11:41 | EDS_ITS ---
HPI History of Present Illness Chief Complaint: Cold Sx Narrative Narrative: 22-year-old female past medical history of anxiety and panic attacks presents to the emergency department with chief complaint of I think I have pneumonia. She states that she was at urgent care last week and was started on prednisone. She came to the emergency department because of fever and cough and shortness of breath. She states that she improved while she was on the prednisone, but a few days ago began having cough and shortness of breath again. She hears rattling in her chest when she breathes. This, in turn is causing her a panic attack. She feels flushed and nauseated with her typical panic attacks. She states she had elevated temperature of 101 ?F, but did not take any antipyretics and came straight to the emergency department. [facility] Medical History (Updated 07/02/22 @ 12:21 by Gordy Lang MD) Cough Home Medications buspirone 7.5 mg tablet 7.5 mg PO TID #90 tabs 06/22/22 [Rx Last Taken Unknown] albuterol sulfate 90 mcg/actuation aerosol inhaler (Ventolin HFA) 1 - 2 puff inhalation Q4H PRN PRN Wheezing #1 ea 07/02/22 [Rx Last Taken Unknown] dextromethorphan-guaifenesin ER 60 mg-1,200 mg tab,extend release,12hr (Mucinex DM) 1 tab PO Q12H #20 tabs 07/02/22 [Rx Last Taken Unknown] escitalopram oxalate 10 mg tablet (Lexapro) 5 mg PO DAILY 07/02/22 [History Last Taken Unknown] Allergy/AdvReac Type Severity Reaction Status Date / Time aluminum Allergy Rash Verified 06/22/22 15:44 amoxicillin trihydrate Allergy Chest Verified 06/22/22 15:44 [From Augmentin] tightness potassium clavulanate Allergy Chest Verified 06/22/22 15:44 [From Augmentin] tightness Family History Grandmother Breast cancer HER2-positive carcinoma of breast Other CAD (coronary artery disease) Diabetes Hypertension Kidney disease Thyroid disorder Social History current occupational status: employed current occupation: [employer] Smoking Status: Former smoker Smokeless tobacco user: dissolvable tobacco alcohol intake: current alcohol intake frequency: holidays/special occasions only substance use type: does not use caffeine: Yes what type of physical activity do you participate in: walking seatbelt use: always do you feel safe at home: Yes ROS ROS ED ROS Narrative Constitutional: Positive fever, no chills. Feels flushed. HEENT: No sore throat. No neck pain. No loss of vision. No rhinorrhea. Cardiovascular: No chest pain. No palpitations. No pedal edema. Respiratory: Positive cough, positive shortness of breath. Rattling in chest when breathing. Abdominal: No abdominal pain. Positive nausea. No vomiting. Genitourinary: No dysuria. No hematuria. Musculoskeletal: No myalgias. No arthralgias. Neurologic: No headaches. No dizziness. No lightheadedness. Skin: No rash. No change in color. Psychiatric: No depression. Positive anxiety. EXAM Physical Exam Narrative Exam Narrative: Afebrile. Vital signs noted. Nontoxic-appearing. HEENT: Normocephalic. Atraumatic. PERRL, EOMI. Neck soft and supple. No point tenderness or step off. Cardiovascular: Positive tachycardia no murmurs, rubs, or gallops appreciated. Respiratory: No tachypnea. Moving a good amount of air. Speaking in full sentences. Occasional rhonchi on examination. Rare expiratory wheeze. Gastrointestinal: Abdomen soft, nontender, with normoactive bowel sounds. No rebound or guarding. Neurological: Awake. Alert. Nonfocal, nonlateralizing. Skin: No rash. Normal color. No pallor. Musculoskeletal: No pedal edema. Full range of motion extremities-.- Const Vital Signs: 07/02/22 11:21 07/02/22 11:56 07/02/22 11:59 Temperature 99.2 F H Temperature Source Temporal Pulse Rate 152 H 124 H Respiratory Rate 16 16 Respiratory Effort Normal Non-Labored Respiratory Depth Normal Respiratory Pattern Normal Blood Pressure 138/82 H 127/81 H Blood Pressure Mean 100 96 Pulse Ox 99 97 Oxygen Delivery Method Room Air Room Air MDM MDM MDM Narrative Medical decision making narrative: Chest x-ray was obtained and 2 views and interpreted by myself. She is given a Zofran for nausea. She states she wanted an ice pack because she felt flushed which usually helps her. He was given this for comfort. She is not febrile here, without the use of antipyretics. Pulse ox is 99% on room air without evidence of hypoxia. Chest x-ray in 2 views interpreted by myself shows no evidence of infiltrate or pneumothorax. Upon repeat examination heart rate is 117 and she feels mildly improved after Zofran. At this point in time, I feel she be discharged safely home with follow-up to her primary care provider. She was given prescriptions for Mucinex DM and for an albuterol inhaler to use. She was told that she can cough and have mucus production for 3 to 4 weeks with bronchitis. She is given a note to be off work for the next day. Disposition is discharged home in stable condition. Radiography Diagnostic Testing: Clinical Impression(s) from Imaging Studies Chest X-Ray 07/02/22 11:40 IMPRESSION: Normal x-ray examination of the chest. Electronically Signed: Danielle Marie MD at 12:01 EST Reading Location ID and State: [facility] / [place] Tel , Service support , Discharge Plan Triage Chief Complaint: Cold Sx ED Provider: Gordy Lang Dx/Rx/DC Orders Clinical Impression: Bronchitis, Panic attack Instructions: ED Bronchitis, No Antibiotic (Adult), ED Panic Attack Prescriptions: New albuterol sulfate [Ventolin HFA] 90 mcg/actuation HFA aerosol inhaler 1 - 2 puff inhalation Q4H PRN PRN (Reason: Wheezing) Qty: 1 0RF dextromethorphan-guaifenesin [Mucinex DM] 60-1,200 mg tablet extended release 12 hr 1 tab PO Q12H Qty: 20 0RF No Action buspirone 7.5 mg tablet 7.5 mg PO TID Qty: 90 1RF escitalopram oxalate [Lexapro] 10 mg tablet 5 mg PO DAILY Stand Alone Forms: ED Work / School Excuse Primary Care Provider: Denise Muñoz Referrals: Denise Muñoz MD [Primary Care Provider] - 3-5 Days if not improving Disposition Disposition: Home, Self Care
[2022-07-02] MEDS: Ondansetron ODT 4 MG Tablet PO (11:54)
[2022-07-02 11:59] VITALS: BP 127/81; PULSE 124; RESP 16; O2SAT 97
[2022-07-02 12:27] VITALS: BP 127/81; PULSE 104; RESP 17; TEMP 36.6; O2SAT 95
== END 2022-07-02 12:33 | disposition home or self-care (01) ==
PROVIDERS: Emergency Provider Emergency Medicine; PCP Internal Medicine; Visit Provider Emergency Medicine
DX: J40 Bronchitis, not specified as acute or chronic (principal); R11.0 Nausea; F41.0 Panic disorder [episodic paroxysmal anxiety]; R06.02 Shortness of breath; Z87.891 Personal history of nicotine dependence; Z79.52 Long term (current) use of systemic steroids
CPT/HCPCS: 71046; 99282

== ENCOUNTER 2022-09-09 19:48 | Emergency (ER) | payer SELFPAY ==
[2022-09-09 19:49] VITALS: BP 127/97; PULSE 143; RESP 18; TEMP 36.8; O2SAT 100; BMI 42.0
--- NOTE | 2022-09-09 20:05 | EDS_ITS ---
HPI <ZACKERY Pak - Last Filed: 09/09/22 20:38> HPI - GI History of Present Illness Chief Complaint: Abd Pain Narrative Narrative: 22-year-old female states she had lunch at 2 PM. She had a bowl of potato soup, peanut butter sandwich and applesauce. At 3 PM she started feel nauseated and vomited several times. Started having midline upper abdominal pain and 3-4 episodes of loose stools. No blood in her vomit or stool. She has had similar symptoms of abdominal bloating and discomfort when eating in the past. She states she has a history of fatty liver disease. She denies smoking. States she only had a small amount of alcohol earlier this week. No history of pancreatitis. PFSH <ZACKERY Pak - Last Filed: 09/09/22 20:38> [facility] Medical History Cough Home Medications dicyclomine 10 mg capsule 20 mg PO TIDAC #20 CAPSULES 09/09/22 [Rx Last Taken Unknown] ondansetron 4 mg disintegrating tablet 4 mg PO Q8H PRN PRN Nausea #10 tabs 09/09/22 [Rx Last Taken Unknown] ondansetron 4 mg disintegrating tablet 4 mg PO Q8H PRN PRN Nausea #10 tabs 09/09/22 [Rx Last Taken Unknown] Allergy/AdvReac Type Severity Reaction Status Date / Time aluminum Allergy Rash Verified 09/09/22 19:51 amoxicillin trihydrate Allergy Chest Verified 09/09/22 19:51 [From Augmentin] tightness potassium clavulanate Allergy Chest Verified 09/09/22 19:51 [From Augmentin] tightness Family History Grandmother Breast cancer HER2-positive carcinoma of breast Other CAD (coronary artery disease) Diabetes Hypertension Kidney disease Thyroid disorder Social History current occupational status: employed current occupation: [employer] Smoking Status: Former smoker Smokeless tobacco user: dissolvable tobacco alcohol intake: current alcohol intake frequency: holidays/special occasions only substance use type: does not use caffeine: Yes what type of physical activity do you participate in: walking seatbelt use: always do you feel safe at home: Yes ROS <ZACKERY Pak - Last Filed: 09/09/22 20:38> ROS ED ROS Narrative Constitutional: Negative for fever, chills, malaise. CVS: Negative for palpitations, chest pain. Respiratory: Negative for shortness of breath, cough. GI: Positive for abdominal pain, nausea, vomiting, diarrhea. Negative for constipation, melena, hematochezia. : Negative for dysuria, hematuria or frequency. EXAM <ZACKERY Pak - Last Filed: 09/09/22 20:38> Physical Exam Narrative Exam Narrative: CONST: Patient sitting in no acute distress. EYES: Normal inspection. ENT: Normal inspection, moist mucous membranes. NECK: Normal inspection. RESP: No respiratory distress, CTAB. CVS: Rapid but regular rhythm, no murmur, no gallop. ABD: Soft with mild midline epigastric tenderness, no tenderness in RUQ/negative Berrios's sign, no guarding or rebound, nondistended, no hepatosplenomegaly. SKIN: Color normal, no rash, warm, dry, intact. EXTREMITIES: Normal appearance, no pedal edema. NEURO: Oriented x4. PSYCH: Normal affect. Const Vital Signs: 09/09/22 19:49 Temperature 98.3 F Temperature Source Temporal Pulse Rate 143 H Respiratory Rate 18 Blood Pressure 127/97 H Blood Pressure Mean 107 Pulse Ox 100 Oxygen Delivery Method Room Air <Dr. Arnol Mendoza MD - Last Filed: 09/09/22 22:00> Physical Exam Const Vital Signs: 09/09/22 19:49 Temperature 98.3 F Temperature Source Temporal Pulse Rate 143 H Respiratory Rate 18 Blood Pressure 127/97 H Blood Pressure Mean 107 Pulse Ox 100 Oxygen Delivery Method Room Air MDM <ZACKERY Pak - Last Filed: 09/09/22 20:38> [facility] MDM Narrative Medical decision making narrative: Patient is having acute and/V/D and midline epigastric pain. She appears well and nontoxic. She is tachycardic with otherwise normal vital signs. She has m idline epigastric tenderness on exam. No RUQ tenderness or Berrios sign so I do not think this is gallbladder related. It is likely gastritis/GERD or food poisoning. She was ordered IV fluids, Zofran, Protonix, and Imodium and will be reassessed. If vital signs and symptoms improve I feel she can be discharged home safely. Test considered but not ordered: There is no RUQ tenderness so no indication for emergent ultrasound. I have personally performed a face to face assessment of the patient and have reviewed the LAURA Note. I performed a substantive portion of the visit including all aspects of the following. My huynh findings include: History is remarkable for nausea with 1 episode of emesis and 4 loose watery stools since 1500. Patient also complains of epigastric pain. She does have history of reflux/esophagitis. She denies hematemesis, melena or maroon-colored stool. She denies fever, chills night sweats. 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 She denies upper respiratory tract infectious symptoms. Exam is patient is morbidly obese. She is tachycardic with a heart rate of 143. Suspect she is orthostatic. HEENT exam is remarkable for slightly dry mucosa. Heart is rapid but not at 143. Lungs are clear to auscultation. Abdomen is remarkable for epigastric pain. Negative clinical Berrios sign. Bowel sounds are slightly increased. There is no guarding or peritoneal findings. Medical Decision Making patient's history physical is consistent with a viral gastroenteritis. Suspect she is dehydrated and reason for heart rate of 143. The right upper quadrant pain is chronic per review of prior records. She has history of fatty liver. Other additions or changes: [None] <Dr. Arnol Mendoza MD - Last Filed: 09/09/22 22:00> [facility] Narrative Medical decision making narrative: I have personally performed a face to face assessment of the patient and have reviewed the LAURA Note. I performed a substantive portion of the visit including all aspects of the following. My huynh findings include: History is remarkable for nausea with 1 episode of emesis and 4 loose watery stools since 1500. Patient also complains of epigastric pain. She does have history of reflux/esophagitis. She denies hematemesis, melena or maroon-colored stool. She denies fever, chills night sweats. 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 She denies upper respiratory tract infectious symptoms. Exam is patient is morbidly obese. She is tachycardic with a heart rate of 143. Suspect she is orthostatic. HEENT exam is remarkable for slightly dry mucosa. Heart is rapid but not at 143. Lungs are clear to auscultation. Abdomen is remarkable for epigastric pain. Negative clinical Berrios sign. Bowel sounds are slightly increased. There is no guarding or peritoneal findings. Medical Decision Making patient's history physical is consistent with a viral gastroenteritis. Suspect she is dehydrated and reason for heart rate of 143. The right upper quadrant pain is chronic per review of prior records. She has history of fatty liver. Other additions or changes: [None] Treatment and Re-Evaluation :: Was reassessed at 2154. She is no longer tachycardic. Patient states her symptoms have not resolved. Patient has not vomited in the department. She passed p.o. challenge. She is had no diarrhea. Patient states she may feel ill for another 24 to 48 hours. Plan is to discharge with prescription for Zofran, dicyclomine and Imodium. Discharge Plan Triage Chief Complaint: Abd Pain ED Midlevel Provider: Jada Pinto ED Provider: Arnol Mendoza Dx/Rx/DC Orders Clinical Impression: Abdominal pain, Nausea & vomiting, Acute diarrhea Instructions: Abdominal Pain, ED Vomiting and Diarrhea ... Prescriptions: New ondansetron 4 mg tablet,disintegrating 4 mg PO Q8H PRN PRN (Reason: Nausea) Qty: 10 0RF ondansetron [ondansetron] 4 mg tablet,disintegrating 4 mg PO Q8H PRN PRN (Reason: Nausea) Qty: 10 0RF dicyclomine 10 mg capsule 20 mg PO TIDAC Qty: 20 0RF Primary Care Provider: Denise Muñoz Referrals: Denise Muñoz MD [Primary Care Provider] - Activity Restrictions/Additional Instructions: I prescribed medication to take as needed for nausea and vomiting. You can also buy Imodium [id number] for diarrhea. Return to ER if symptoms worsen. Disposition Disposition: Home, Self Care
[2022-09-09] MEDS: 0.9% Normal Saline 1,000 ML 1000 ML IV (20:37)
[2022-09-09] MEDS: Loperamide 2 MG Capsule 4 MG PO (20:37)
[2022-09-09] MEDS: Ondansetron 4 MG/2 ML Vial IV (20:37)
[2022-09-09 21:49] VITALS: RESP 16
[2022-09-09] MEDS: Dicyclomine 10 MG Capsule 20 MG PO (22:07)
== END 2022-09-09 22:11 | disposition home or self-care (01) ==
PROVIDERS: Emergency Provider Emergency Medicine; PCP Internal Medicine; Visit Provider Emergency Medicine
DX: R10.13 Epigastric pain (principal); E66.01 Morbid (severe) obesity due to excess calories; R19.7 Diarrhea, unspecified; Z87.891 Personal history of nicotine dependence; R11.2 Nausea with vomiting, unspecified
CPT/HCPCS: 96365; 96366; 96375; 99284; J7030; A4216; J2405

== ENCOUNTER 2022-09-10 11:36 | Emergency (ER) | payer SELFPAY ==
[2022-09-10 11:37] VITALS: BP 120/90; PULSE 129; RESP 18; TEMP 37.2; O2SAT 100; BMI 41.6
--- NOTE | 2022-09-10 11:57 | CT_ITS ---
INDICATION: abdominal pain EXAMINATION: CT ABDOMEN AND PELVIS WITH CONTRAST - CT Abdomen And Pelvis W/ Contrast Injection TECHNIQUE: Helically acquired images were obtained of the abdomen and pelvis following IV contrast. A radiation dose optimization technique was used for this scan. IV Contrast dosage and agent: Oral contrast: None. COMPARISON: January 02, 2016 FINDINGS: LOWER CHEST: Lung bases are clear. No cardiomegaly or pericardial effusion. LIVER: The liver is diffusely low in attenuation consistent with fatty infiltration. GALLBLADDER AND BILIARY TREE: No calcified gallstones. No gallbladder distension or wall edema. No intra- or extrahepatic biliary ductal dilation. PANCREAS: No focal cystic or solid mass. SPLEEN: Normal size without focal cystic or solid mass. ADRENAL GLANDS: No nodules. KIDNEYS AND URETERS: Normal renal size and position. No hydronephrosis. PERITONEUM: There is trace free fluid within the pelvis, left pronounced than the prior examination, likely physiologic. BOWEL: No evidence of acute appendicitis. No stomach or bowel distension. No focal inflammatory change. LYMPH NODES: No enlarged mesenteric or retroperitoneal lymph nodes. VESSELS: Aorta is non-dilated. URINARY BLADDER: Unremarkable. REPRODUCTIVE ORGANS: No pelvic masses. ABDOMINAL WALL: No discrete abdominal or pelvic wall hernia. BONES: No lytic or blastic abnormality. CT/Abdomen/Pelvis W IV Cont ONLY IMPRESSION: Fatty infiltration of the liver. Electronically Signed: Alesia Gonzales MD at 15:17 EST ,
--- NOTE | 2022-09-10 11:58 | EX.ED.DYSGE1 ---
HPI <DAMON Wilson - Last Filed: 09/10/22 15:33> History of Present Illness Chief Complaint: Dizziness Narrative Narrative: 22-year-old female with no significant medical history presents to the emergency department with intermittent fever and chills, abdominal pain, nausea, vomiting, diarrhea. Patient was seen here last evening, discharged around 2100 last evening. Patient received basic laboratory eval as well as IV fluids. Was discharged home with Lj Kramer, Imodium. Patient states that she went home, continued to have vomiting, continues to have fever and chills and is here for reevaluation. Patient states that she has epigastric pain as well as lower abdominal pain. She denies any blood in stool or vomit. She denies any sick contacts. She also is concerned that her heart rate continues to be high. PFSH <DAMON Wilson - Last Filed: 09/10/22 15:33> PFSH Medical History Cough Home Medications dicyclomine 10 mg capsule 20 mg PO TIDAC #20 CAPSULES 09/09/22 [Rx Last Taken Unknown] ondansetron 4 mg disintegrating tablet 4 mg PO Q8H PRN PRN Nausea #10 tabs 09/09/22 [Rx Last Taken Unknown] ondansetron 4 mg disintegrating tablet 4 mg PO Q8H PRN PRN Nausea #10 tabs 09/09/22 [Rx Last Taken Unknown] famotidine 40 mg tablet (Pepcid) 40 mg PO BID #30 tabs 09/10/22 [Rx Last Taken Unknown] Allergy/AdvReac Type Severity Reaction Status Date / Time aluminum Allergy Rash Verified 09/10/22 11:38 amoxicillin trihydrate Allergy Chest Verified 09/10/22 11:38 [From Augmentin] tightness potassium clavulanate Allergy Chest Verified 09/10/22 11:38 [From Augmentin] tightness Family History Grandmother Breast cancer HER2-positive carcinoma of breast Other CAD (coronary artery disease) Diabetes Hypertension Kidney disease Thyroid disorder Social History current occupational status: employed current occupation: [employer] through Smoking Status: Former smoker Smokeless tobacco user: dissolvable tobacco alcohol intake: current alcohol intake frequency: holidays/special occasions only substance use type: does not use caffeine: Yes what type of physical activity do you participate in: walking seatbelt use: always do you feel safe at home: Yes ROS <DAMON Wilson - Last Filed: 09/10/22 15:33> ROS ED ROS Narrative Constitutional: Negative for weight loss, weakness. Positive fever and chills Eyes: Negative for vision loss, vision change, double vision ENT: Negative for any sore throat, ear pain, congestion Cardiovascular: Negative for any chest pain, tightness. Positive palpitations Respiratory: Negative for any cough, sputum production, hemoptysis, dyspnea, dyspnea on exertion, orthopnea Gastrointestinal: Negative for any constipation, blood in stool, blood in vomit. Positive for abdominal pain, nausea, vomiting : Negative for any urinary frequency, dysuria, retention, blood in urine Muscle skeletal: Negative for any muscle joint pain, stiffness, myalgias, arthralgias, neck pain, back pain Neurological: Negative for any headache, syncope, numbness or tingling, dizziness Skin: Negative for any rashes, lumps, itching, abrasions, lacerations Psychiatric: Negative for any depression, anxiety, stress, suicidal ideation, homicidal ideation Hematologic: Negative for any easy bruising, excessive bruising, easy bleeding Allergies: Negative for any eczema, hives, rash EXAM <DAMON Wilson - Last Filed: 09/10/22 15:33> Physical Exam Narrative Exam Narrative: Vital signs reviewed. Patient appears generally well. HEET: Head normocephalic atraumatic, TMs clear bilaterally. Posterior pharynx is clear, moist mucous membranes. Nares clear bilaterally. Neck: Supple with no lymphadenopathy or tenderness. No signs of meningismus, negative jolt sign. Cardiac: Tachycardic rate no murmurs gallops or rubs, equal peripheral pulses bilaterally. Respiratory: Lungs clear to auscultation bilaterally. No chest tenderness. Abdomen: Soft,, nondistended. No abdominal bruit or pulsatile masses. No hepatosplenomegaly. Patient had slight tenderness to the lower abdominal area. Minimal chest pain in the epigastric area because she states that it is better than what it was. Extremities: No peripheral edema, no signs of gross trauma or deformity. Active full range of motion of all extremities. Neuro: Cranial nerves II through XII intact, no focal neurological deficits. Skin: Clean dry and intact with no rash, purpura, petechiae, vesicles or pustules. Backs/flank: No CVA tenderness, no midline spinal tenderness, no deformity. Psych: Normal mood and affect. No SI, HI or acute psychosis. Const Vital Signs: 09/10/22 11:37 09/10/22 11:36 09/10/22 14:18 Temperature 99 F 99.0 F Temperature Source Temporal Oral Pulse Rate 129 H 116 H Respiratory Rate 18 18 Respiratory Pattern Normal Blood Pressure 120/90 H 118/76 Blood Pressure Mean 100 90 Pulse Ox 100 100 Oxygen Delivery Method Room Air Room Air <Dr. Asha Damon DO - Last Filed: 09/12/22 16:16> Physical Exam Const Vital Signs: 09/10/22 11:37 09/10/22 11:36 09/10/22 14:18 Temperature 99 F 99.0 F Temperature Source Temporal Oral Pulse Rate 129 H 116 H Respiratory Rate 18 18 Respiratory Pattern Normal Blood Pressure 120/90 H 118/76 Blood Pressure Mean 100 90 Pulse Ox 100 100 Oxygen Delivery Method Room Air Room Air [facility] <DAMON Wilson - Last Filed: 09/10/22 15:33> [facility] Lab Data Attestation: I reviewed the patient's lab results. Labs: Laboratory Results - last 24 hr 09/10/22 09/10/22 09/10/22 12:40 12:40 12:40 WBC 6.8 RBC 5.07 Hgb 13.6 Hct 41.7 MCV 82.2 MCH 26.8 L MCHC 32.6 RDW Std Deviation 41.7 RDW Coeff of Maryam 14.1 Plt Count 276 MPV 8.7 Immature Gran % (Auto) 0.400 Neut % (Auto) 74.6 H Lymph % (Auto) 15.9 L [place] % (Auto) 8.8 Eos % (Auto) 0.0 Baso % (Auto) 0.3 Absolute Neuts (auto) 5.1 Absolute Lymphs (auto) 1.08 Nucleated RBC % 0 Sodium Cancelled Potassium Cancelled Chloride Cancelled Carbon Dioxide Cancelled Anion Gap Cancelled BUN Cancelled Creatinine Cancelled Estim Creat Clear Calc Cancelled Est GFR (MDRD) Af Amer Cancelled Est GFR (MDRD) Non-Af Cancelled BUN/Creatinine Ratio Cancelled Glucose Cancelled Lactic Acid 1.1 Calcium Cancelled Total Bilirubin Cancelled AST Cancelled ALT Cancelled Alkaline Phosphatase Cancelled Total Protein Cancelled Albumin Cancelled Globulin Cancelled Albumin/Globulin Ratio Cancelled Lipase Cancelled TSH Cancelled Urine Color Urine Clarity Urine pH Ur Specific [place] Urine Protein Urine Glucose (UA) Urine Ketones Urine Occult Blood Urine Nitrite Urine Bilirubin Urine Urobilinogen Ur Leukocyte Esterase Urine RBC Urine WBC Ur Squamous Epith Cells Urine Bacteria Urine Mucus Urine Test 09/10/22 09/10/22 12:40 13:08 WBC RBC Hgb Hct MCV MCH MCHC RDW Std Deviation RDW Coeff of Maryam Plt Count MPV Immature Gran % (Auto) Neut % (Auto) Lymph % (Auto) [place] % (Auto) Eos % (Auto) Baso % (Auto) Absolute Neuts (auto) Absolute Lymphs (auto) Nucleated RBC % Sodium 138 Potassium 3.3 L Chloride 104 Carbon Dioxide 27.0 Anion Gap 7 BUN 12 Creatinine 0.85 Estim Creat Clear Calc 78.34 Est GFR (MDRD) Af Amer 108 Est GFR (MDRD) Non-Af 89 BUN/Creatinine Ratio 14.2 Glucose 101 Lactic Acid Calcium 8.9 Total Bilirubin 0.40 AST 20 ALT 47 Alkaline Phosphatase 54 Total Protein 7.4 Albumin 3.4 Globulin 4.0 Albumin/Globulin Ratio 0.8 L Lipase 70 L TSH 0.50 Urine Color Yellow Urine Clarity Clear Urine pH 7.0 Ur Specific [place] 1.010 Urine Protein Negative Urine Glucose (UA) Normal Urine Ketones Negative Urine Occult Blood Negative Urine Nitrite Negative Urine Bilirubin Negative Urine Urobilinogen Normal Ur Leukocyte Esterase Negative Urine RBC 0 SEEN Urine WBC 0 SEEN Ur Squamous Epith Cells 0 SEEN Urine Bacteria 0 SEEN Urine Mucus 0 SEEN Urine Test Negative Radiography Diagnostic Testing: Clinical Impression(s) from Imaging Studies Abdomen/Pelvis CT 09/10/22 11:57 IMPRESSION: Fatty infiltration of the liver. Electronically Signed: Alesia Gonzales MD at 15:17 EST , EKG Sinus tachycardia: Attestation: I personally reviewed and interpreted this EKG as follows: Comments: Sinus tachycardia, rate of 109 bpm, NC 140 ms, QRS duration 76 ms, no acute ST elevation, no acute infarct noted. Reviewed by ER physician Differential Diagnosis Abdominal Pain: Appendicitis, Cholecystitis and Bowel obstruction Why less likely: Negative for infectious-like symptoms, still passing gas. Treatment and Re-Evaluation :: All radiologic examinations were read, reviewed by the emergency department attending. From these reads, a plan of care will be put in place. Patient appears well, patient appears nontoxic, vital signs are stable. Patient presents to the emergency department for the second time for the same complaint of abdominal pain, nausea, vomiting, diarrhea. Patient looks to be in no distress, patient received a full abdominal work-up including imaging this time. This will be concluded for differential of appendicitis, bowel obstruction. Patient's laboratory values show a normal CBC, patient's chemistry shows slight hypokalemia with a potassium of 3.3, patient's liver function test were unremarkable. TSH within normal limits. Lipase was negative. Patient did receive a CT scan of the abdomen and pelvis, this showed a fatty infiltration of the liver, no acute abnormality. Patient's COVID-19, influenza was negative. Patient's urinalysis was negative for any infection. Patient was given IV fluids, IV Zofran. On reassessment, the patient heart rate was decreased. Patient was in a position of comfort. Patient at this time is to continue her medications given to her. I will add Pepcid for her epigastric pain. She will advance her diet as tolerated. She will maintain adequate hydration. Patient is happy with the plan of care she will follow-up with her PCP, I spoke with her as well who was also given discharge instructions. Patient is happy with plan of care and stable for discharge. <Dr. Asha Damon, DO - Last Filed: 09/12/22 16:16> [facility] Lab Data Labs: Laboratory Results - last 24 hr 09/10/22 09/10/22 09/10/22 12:40 12:40 12:40 WBC 6.8 RBC 5.07 Hgb 13.6 Hct 41.7 MCV 82.2 MCH 26.8 L MCHC 32.6 RDW Std Deviation 41.7 RDW Coeff of Maryam 14.1 Plt Count 276 MPV 8.7 Immature Gran % (Auto) 0.400 Neut % (Auto) 74.6 H Lymph % (Auto) 15.9 L [place] % (Auto) 8.8 Eos % (Auto) 0.0 Baso % (Auto) 0.3 Absolute Neuts (auto) 5.1 Absolute Lymphs (auto) 1.08 Nucleated RBC % 0 Sodium Cancelled Potassium Cancelled Chloride Cancelled Carbon Dioxide Cancelled Anion Gap Cancelled BUN Cancelled Creatinine Cancelled Estim Creat Clear Calc Cancelled Est GFR (MDRD) Af Amer Cancelled Est GFR (MDRD) Non-Af Cancelled BUN/Creatinine Ratio Cancelled Glucose Cancelled Lactic Acid 1.1 Calcium Cancelled Total Bilirubin Cancelled AST Cancelled ALT Cancelled Alkaline Phosphatase Cancelled Total Protein Cancelled Albumin Cancelled Globulin Cancelled Albumin/Globulin Ratio Cancelled Lipase Cancelled TSH Cancelled Urine Color Urine Clarity Urine pH Ur Specific [place] Urine Protein Urine Glucose (UA) Urine Ketones Urine Occult Blood Urine Nitrite Urine Bilirubin Urine Urobilinogen Ur Leukocyte Esterase Urine RBC Urine WBC Ur Squamous Epith Cells Urine Bacteria Urine Mucus Urine Test 09/10/22 09/10/22 12:40 13:08 WBC RBC Hgb Hct MCV MCH MCHC RDW Std Deviation RDW Coeff of Maryam Plt Count MPV Immature Gran % (Auto) Neut % (Auto) Lymph % (Auto) [place] % (Auto) Eos % (Auto) Baso % (Auto) Absolute Neuts (auto) Absolute Lymphs (auto) Nucleated RBC % Sodium 138 Potassium 3.3 L Chloride 104 Carbon Dioxide 27.0 Anion Gap 7 BUN 12 Creatinine 0.85 Estim Creat Clear Calc 78.34 Est GFR (MDRD) Af Amer 108 Est GFR (MDRD) Non-Af 89 BUN/Creatinine Ratio 14.2 Glucose 101 Lactic Acid Calcium 8.9 Total Bilirubin 0.40 AST 20 ALT 47 Alkaline Phosphatase 54 Total Protein 7.4 Albumin 3.4 Globulin 4.0 Albumin/Globulin Ratio 0.8 L Lipase 70 L TSH 0.50 Urine Color Yellow Urine Clarity Clear Urine pH 7.0 Ur Specific [place] 1.010 Urine Protein Negative Urine Glucose (UA) Normal Urine Ketones Negative Urine Occult Blood Negative Urine Nitrite Negative Urine Bilirubin Negative Urine Urobilinogen Normal Ur Leukocyte Esterase Negative Urine RBC 0 SEEN Urine WBC 0 SEEN Ur Squamous Epith Cells 0 SEEN Urine Bacteria 0 SEEN Urine Mucus 0 SEEN Urine Test Negative Radiography Diagnostic Testing: Clinical Impression(s) from Imaging Studies Abdomen/Pelvis CT 09/10/22 11:57 IMPRESSION: Fatty infiltration of the liver. Electronically Signed: Alesia Gonzales MD at 15:17 EST , Rhythm Strip Rhythm Strip: Sinus Tach Rate: 109 Ectopy: None Treatment and Re-Evaluation :: All radiologic examinations were read, reviewed by the emergency department attending. From these reads, a plan of care will be put in place. Patient appears well, patient appears nontoxic, vital signs are stable. Patient presents to the emergency department for the second time for the same complaint of abdominal pain, nausea, vomiting, diarrhea. Patient looks to be in no distress, patient received a full abdominal work-up including imaging this time. This will be concluded for differential of appendicitis, bowel obstruction. Patient's laboratory values show a normal CBC, patient's chemistry shows slight hypokalemia with a potassium of 3.3, patient's liver function test were unremarkable. TSH within normal limits. Lipase was negative. Patient did receive a CT scan of the abdomen and pelvis, this showed a fatty infiltration of the liver, no acute abnormality. Patient's COVID-19, influenza was negative. Patient's urinalysis was negative for any infection. Patient was given IV fluids, IV Zofran. On reassessment, the patient heart rate was decreased. Patient was in a position of comfort. Patient at this time is to continue her medications given to her. I will add Pepcid for her epigastric pain. She will advance her diet as tolerated. She will maintain adequate hydration. Patient is happy with the plan of care she will follow-up with her PCP, I spoke with her as well who was also given discharge instructions. Patient is happy with plan of care and stable for discharge. I have personally performed a face to face assessment of the patient and have reviewed the LAURA Note. I performed a substantive portion of the visit including all aspects of the following. My huynh findings include: History is patient is a 22-year-old female with history of anxiety and obesity presenting to the emergency room with continued abdominal pain, nausea, vomiting, and dizziness. Patient was seen in our emergency room yesterday and evaluated. She had lab work which was largely normal. Patient's vital signs are significant for tachycardia 1 in the emergency room. She clinically does not appear significantly dehydrated was given IV fluids given her symptoms. Repeat labs obtained. Patient states she had 1 episode of vomiting since discharge from the emergency room yesterday and had 1 formed bowel movement. Patient does not have any peritoneal signs on exam. Given her dizziness and tachycardia an EKG is obtained which does not show any acute ischemic process.CBC is normal with no acute leukocytosis. Patient does not complain of any shortness of breath or difficulty breathing and I do not think this is pulmonary process. BMP shows a mildly low potassium at 3.3 but I do not think this is the cause of her symptoms. She has no other significant electrolyte abnormalities and her kidney function is stable. Patient's TSH today is normal and I do not suspect thyroid storm or significant thyroid dysfunction as a cause of her presentation. Urinalysis is not consistent with infection or rhabdomyolysis and previous test is negative. CT of the abdomen pelvis is obtained given his vague abdominal pain. It does show fatty liver but no other acute process. Exam is relatively benign. The exact cause of her presentation symptoms is not clear but she clinically seems to be improving as she has had no further diarrhea and only 1 episode of vomiting since discharge. Patient counseled that she could have a viral syndrome that is causing her symptoms. We will continue to treat symptomatically with Zofran and Bentyl and will prescribe Pepcid as well. Patient agreeable this plan of care. Is given return precautions. Discharged home in stable condition. Other additions or changes: [None] Discharge Plan Triage Chief Complaint: Dizziness ED Midlevel Provider: Roly Sanchez ED Provider: Asha Damon Dx/Rx/DC Orders Clinical Impression: Abdominal pain, Acute epigastric pain Instructions: Abdominal Pain, ED Pain, Acute, Uncertain Cause Prescriptions: New famotidine [Pepcid] 40 mg tablet 40 mg PO BID Qty: 30 0RF No Action ondansetron 4 mg tablet,disintegrating 4 mg PO Q8H PRN PRN (Reason: Nausea) Qty: 10 0RF ondansetron [ondansetron] 4 mg tablet,disintegrating 4 mg PO Q8H PRN PRN (Reason: Nausea) Qty: 10 0RF dicyclomine 10 mg capsule 20 mg PO TIDAC Qty: 20 0RF Primary Care Provider: Denise Muñoz Referrals: Denise Muñoz MD [Primary Care Provider] - Activity Restrictions/Additional Instructions: Advance your diet as tolerated. Follow-up with your PCP for further testing. Disposition Disposition: Home, Self Care Discharge Date/Time: 09/10/22 15:45
[2022-09-10 12:55] LABS: Absolute Lymphocyte Count 1.08 X10^3/uL (0.83-4.51); Absolute Neutrophil Count 5.1 X10^3/uL (2.0-7.7); Basophil# 0.02 X10^3/uL; Basophil% 0.3 % (0-1); Hematocrit 41.7 % (37-47); Hemoglobin 13.6 g/dL (12.0-15.0); Lymphocyte # 1.08 X10^3/ul (0.83-4.51); Lymphocyte % 15.9 % (19-41); Mean Corp Hgb Conc 32.6 g/dL (32-36); Mean Corpuscular Hgb 26.8 pg (27.0-32.0); Mean Corpuscular Volume 82.2 fL (81-99); Mean Platelet Vol. 8.7 fl (6.2-12.0); Monocyte% 8.8 % (0-10); NRBC Flagged by Analyzer 0 % (0-5); Neutrophil # 5.08 X10^3/uL (2.7-7.7); Neutrophil % 74.6 % (47-70); Platelet Count 276 K/mm3 (150-450); RBC Distribution Width CV 14.1 % (11.6-14.6); RBC Distribution Width SD 41.7 fl (35.1-43.9); Red Blood Count 5.07 M/mm3 (4.2-5.4); White Blood Count 6.8 K/mm3 (4.4-11.0)
[2022-09-10] MEDS: Ondansetron 4 MG/2 ML Vial IV (13:03)
[2022-09-10] MEDS: 0.9% Normal Saline 1,000 ML 1000 ML IV (13:04)
[2022-09-10 13:15] LABS: Lactic Acid 1.1 mmol/L (0.4-1.9)
[2022-09-10 13:15] LABS: Bacteria 0 SEEN /hpf (None Seen); Mucous, Urine 0 SEEN /hpf (<or=2+); Red Blood Cells-Urine 0 SEEN /hpf (0-5); Squamous Epithelial Cells - UA 0 SEEN /hpf (5-10); White Blood Cells 0 SEEN /hpf (0-5)
[2022-09-10 13:30] LABS: Color, Urine Yellow (Yellow); Glucose, Dipstick Normal (Normal); Ketone-Dipstick Negative (Negative); Leukocyte Esterase-Dipstick Negative /ul (Negative); Nitrite-Dipstick Negative (Negative); Occult Blood-Urine Negative /ul (Negative); Protein-Dipstick Negative (Negative); Urine Bilirubin Dipstick Negative (Negative); Urine Clarity Clear (Clear); Urine Urobilinogen Normal (Normal)
[2022-09-10 13:47] LABS: ALB/GLOB Ratio 0.8 RATIO (0.9-2.4); AST(SGOT) 20 U/L (15-37); Alanine Aminotransfer ALT/SGPT 47 U/L (13-56); Albumin, Serum 3.4 g/dL (3.2-5.0); Alkaline Phosphatase 54 U/L (45-117); Anion Gap 7 (5-15); BUN 12 mg/dL (7-18); BUN/Creat Ratio 14.2 RATIO (10-20); Calcium,Total 8.9 mg/dL (8.5-10.1); Chloride 104 mmol/L (98-107); Creatinine, Serum 0.85 mg/dL (0.55-1.02); EST Glomerular Filtration Rate 89 mL/min (>60); Est Glom Filt Rate - Afr Amer 108 mL/min (>60); Estimated Creatinine Clearance 78.34 ml/min; Glucose 101 mg/dL (74-106); Lipase 70 U/L (73-393); Potassium 3.3 mmol/L (3.5-5.1); Protein, Total 7.4 g/dL (6.4-8.2); Sodium Level 138 mmol/L (136-145)
[2022-09-10 13:47] LABS: Internal QC Validated? YES +Cl - CLEAR BKGD; Pregnancy, Urine Negative Negative
[2022-09-10 14:18] VITALS: BP 118/76; PULSE 116; RESP 18; TEMP 37.2; O2SAT 100
== END 2022-09-10 15:45 | disposition home or self-care (01) ==
PROVIDERS: Nurse Practitioner; Emergency Provider Emergency Medicine; PCP Internal Medicine; Visit Provider Emergency Medicine
DX: R10.13 Epigastric pain (principal); R42 Dizziness and giddiness; R11.2 Nausea with vomiting, unspecified; R19.7 Diarrhea, unspecified; K76.0 Fatty (change of) liver, not elsewhere classified; Z87.891 Personal history of nicotine dependence; Z20.822 Contact with and (suspected) exposure to COVID-19
CPT/HCPCS: 74177; 80053; 81001; 81025; 83605; 83690; 84443; 85025; 87428; 93005; 96361; 96374; 99283; J7030; Q9967; A4216; J2405

== ENCOUNTER 2022-12-31 10:12 | Emergency (ER) | payer SELFPAY ==
[2022-12-31 10:13] VITALS: BP 134/94; PULSE 132; RESP 18; TEMP 35.8; O2SAT 98; BMI 39.4
--- NOTE | 2022-12-31 10:28 | CT_ITS ---
INDICATION: Abdominal pain. EXAMINATION: CT ABDOMEN AND PELVIS WITHOUT CONTRAST - CT Abdomen And Pelvis W/O Contrast Injection TECHNIQUE: Helically acquired images were obtained of the abdomen and pelvis without oral or IV contrast. A radiation dose optimization technique was used for this scan. IV Contrast dosage and agent: None. Oral contrast: None. RADIATION DOSAGE (If Supplied By Facility): CTDIvol = ( 15.73 ) mGy, DLP = ( 840.90 ) mGycm COMPARISON: Prior CT abdomen and pelvis of 09/10/2022. FINDINGS: LOWER CHEST: Mild atelectatic changes or scarring in the right lower lung. No cardiomegaly or pericardial effusion. LIVER: Hepatic steatosis No focal lesion is definitely seen without contrast. GALLBLADDER AND BILIARY TREE: No calcified gallstones. No gallbladder distension or wall edema. No intra- or extrahepatic biliary ductal dilation. PANCREAS: No focal cystic or solid mass. SPLEEN: Normal size without focal cystic or solid mass. ADRENAL GLANDS: No nodules. KIDNEYS AND URETERS: Normal renal size and position. No hydronephrosis. PERITONEUM: No ascites or free air. No other fluid collection. BOWEL: Normal in caliber small bowel loops. Unremarkable appendix. No evidence of acute diverticulitis. LYMPH NODES: Few small nodes in the right lower quadrant, the largest measures about 1.2 cm. No evidence of retroperitoneal adenopathy. VESSELS: Aorta is non-dilated. URINARY BLADDER: The bladder is not distended. REPRODUCTIVE ORGANS: No pelvic masses. ABDOMINAL WALL: No discrete abdominal or pelvic wall hernia. BONES: No lytic or blastic abnormality. CT/Abdomen/Pelvis without Cont IMPRESSION: 1. Few small right lower quadrant nodes could reflect mesenteric adenitis. 2. Otherwise no focal acute inflammatory process. 3. Hepatic steatosis. Electronically Signed: Wolfgang Martines MD at 12:24 EDT ,
--- NOTE | 2022-12-31 10:29 | ED.VIS.GI ---
HPI HPI - GI History of Present Illness Chief Complaint: Abd Pain Detail of Chief Complaint: Abdominal pain Informant: patient Narrative Narrative: Patient presents with abdominal pain that started this morning. Patient states she has had some loose stools for couple of days. This morning she developed nausea but has had no vomiting. She rates her pain a 9 out of 10. She feels like the pain is lower abdomen. She had fever at home up to 100.6. She denies sick contacts. She denies eating any unusual or undercooked foods. She denies urinary symptoms. Last menstrual period was a week ago. No prior abdominal surgeries. [facility] Medical History Cough Home Medications azithromycin 250 mg tablet See Rx Instructions PO .COMPLEX #6 tabs 09/19/22 [Rx Last Taken Unknown] dicyclomine 10 mg capsule 20 mg (2 x 10 mg) PO TIDAC PRN nausea and vomiting #40 CAPSULES 09/19/22 [Rx Last Taken Unknown] famotidine 40 mg tablet (Pepcid) 40 mg PO BID #60 tabs 09/19/22 [Rx Last Taken Unknown] dicyclomine 10 mg capsule 20 mg (2 x 10 mg) PO TIDAC #20 CAPSULES 12/31/22 [Rx Last Taken Unknown] ondansetron 4 mg disintegrating tablet 4 mg PO Q8H PRN PRN Nausea #10 tabs 12/31/22 [Rx Last Taken Unknown] Allergy/AdvReac Type Severity Reaction Status Date / Time aluminum Allergy Rash Verified 09/19/22 11:32 amoxicillin trihydrate Allergy Chest Verified 09/19/22 11:32 [From Augmentin] tightness potassium clavulanate Allergy Chest Verified 09/19/22 11:32 [From Augmentin] tightness Family History Grandmother Breast cancer HER2-positive carcinoma of breast Other CAD (coronary artery disease) Diabetes Hypertension Kidney disease Thyroid disorder Social History current occupational status: employed current occupation: [employer] Smoking Status: Former smoker Smokeless tobacco user: dissolvable tobacco alcohol intake: current alcohol intake frequency: holidays/special occasions only substance use type: does not use caffeine: Yes what type of physical activity do you participate in: walking seatbelt use: always do you feel safe at home: Yes ROS ROS ED Review of Systems ROS Unobtainable: other Constitutional Constitutional ED: Reports lethargy; Denies chills, fever(s), sweats or weight loss Eyes Eyes: Denies blurry vision, change in vision or diplopia ENT ENT ED: Denies rhinorrhea or sore throat Cardiovascular Cardiovascular: Reports racing heartbeat; Denies chest pain or orthopnea Respiratory/Chest Respiratory/Chest: Denies cough, dyspnea, dyspnea on exertion, orthopnea or sputum Gastrointestinal Gastrointestinal: Reports abdominal pain, diarrhea and nausea; Denies vomiting Genitourinary Genitourinary ED: Denies dysuria, hematuria or urinary frequency Musculoskeletal Musculoskeletal: Denies arthralgias, back pain, myalgias or neck pain Integumentary Denies abscess, Abrasions or rash Neurologic Neurologic: Denies headache(s) or weakness Psychiatric Psychiatric: Denies anxiety, depression or suicidal thoughts Endocrine Endocrinology: Denies polydipsia, polyphagia or polyuria Hematologic/Lymphatic Hematologic/Lymphatic: Denies easy bleeding, easy bruising or lymphadenopathy Allergic/Immunologic Allergic/Immunologic ED: Denies mouth swelling, tongue swelling or urticaria EXAM Physical Exam Const Vital Signs: 12/31/22 10:13 12/31/22 12:48 Temperature 96.4 F L 97.8 F Temperature Source Temporal Pulse Rate 132 H 78 Respiratory Rate 18 16 Blood Pressure 134/94 H 126/78 H Blood Pressure Mean 107 Pulse Ox 98 100 Oxygen Delivery Method Room Air Positive well nourished and well developed General Appearance ED: well developed and NAD HEENT Reports TM's clear and moist mucous membranes normocephalic and atraumatic; Negative for trauma or tenderness Tympanic Membrane ED: Yes TM's clear Eyes PERRL and EOMs intact bilaterally General Eye ED: Negative for pale conjunctiva or scleral icterus Neck no lymphadenopathy, supple and no JVD General: Negative for tenderness Chest Wall inspection of chest normal and palpation of chest normal Chest: Negative for tenderness Resp normal respiratory effort and clear to auscultation bilaterally Effort and Inspection: Negative for respiratory distress or pain with movement Auscultation: Negative for rhonchi, wheezes or diminished lung sounds Cardio regular rate, regular rhythm, S1 normal heart sound, S2 normal heart sound and no murmurs Peripheral Pulses: pulses 2+ throughout GI normal to inspection, nondistended, normoactive bowel sounds, soft to palpation, non-distended and no masses GI Narrative: Tenderness diffusely over the lower abdomen to the right lower quadrant and left lower quadrant and suprapubic region. There are some mild guarding. There is no rebound, rigidity, or pedal signs. No masses palpated. Back/Spine no CVA tenderness and no thoracic nor lumbar tenderness Extremity normal to inspection General Extremety ED: Negative for edema General Extremity: Negative for edema Neuro oriented x3, CN's II-XII intact bilaterally, no sensory deficits noted and gait normal Sensorium / Orientation: awake, alert, oriented to person, oriented to place and oriented to time Motor Exam: strength 5/5 throughout and strength abnormal Psych mental status grossly normal Skin no rashes or lesions noted and no wounds MDM MDM MDM Narrative Medical decision making narrative: Patient presents with some loose stools for several days and then pain that started this morning. Patient's had fever at home. She denies urinary symptoms. In the differential would be appendicitis versus gallbladder disease versus gastroenteritis versus UTI or other acute intra-abdominal process. IV line established on arrival. Patient did not want a thing for pain. She was given Zofran 4 mg IV. CBC with differential obtained showed an elevated white count of 18.0. Chemistries unremarkable. LFTs did show a slightly elevated ALT of 71 AST of 32 and total bilirubin was normal at 0.50. Urinalysis was normal. I did perform a CT scan of the abdomen pelvis that was essentially unremarkable but she did have some evidence of possibly mesenteric adenitis. Gallbladder and appendix looked normal. On repeat examination at 1250. She has no pain over the area of the gallbladder. Abdomen feels benign but somewhat tender throughout. This point I suspect likely a viral gastroenteritis. She will be given a prescription for Zofran and Bentyl. She is advised to follow-up with her primary care physician within next 3 to 5 days. Patient to return if worsening pain, fever, persistent vomiting, diarrhea, dehydration, or condition should worsen anyway Lab Data Labs: Laboratory Results - last 24 hr 12/31/22 12/31/22 11:03 11:11 WBC 18.0 H RBC 5.33 Hgb 14.2 Hct 43.5 MCV 81.6 MCH 26.6 L MCHC 32.6 RDW Std Deviation 39.2 RDW Coeff of Maryam 13.2 Plt Count 345 MPV 8.6 Immature Gran % (Auto) 0.300 Neut % (Auto) 87.8 H Lymph % (Auto) 6.8 L [place] % (Auto) 4.7 Eos % (Auto) 0.1 Baso % (Auto) 0.3 Absolute Neuts (auto) 15.8 H Absolute Lymphs (auto) 1.22 Nucleated RBC % 0 Sodium 139 Potassium 3.9 Chloride 107 Carbon Dioxide 26.0 Anion Gap 6 BUN 11 Creatinine 0.78 Estim Creat Clear Calc 85.37 Est GFR (MDRD) Af Amer 119 Est GFR (MDRD) Non-Af 98 BUN/Creatinine Ratio 14.2 Glucose 109 H Calcium 9.2 Total Bilirubin 0.50 AST 32 ALT 71 H Alkaline Phosphatase 70 Total Protein 8.2 Albumin 3.8 Globulin 4.4 H Albumin/Globulin Ratio 0.9 Serum , Qual NEGATIVE Urine Color Yellow Urine Clarity Clear Urine pH 7.0 Ur Specific Mobile 1.030 Urine Protein Negative Urine Glucose (UA) Normal Urine Ketones Negative Urine Occult Blood Negative Urine Nitrite Negative Urine Bilirubin Negative Urine Urobilinogen Normal Ur Leukocyte Esterase Negative Urine RBC 0 SEEN Urine WBC 0 SEEN Ur Squamous Epith Cells 0 SEEN Urine Bacteria 0 SEEN Urine Mucus 0 SEEN Radiography Diagnostic Testing: Clinical Impression(s) from Imaging Studies Abdomen/Pelvis CT 12/31/22 10:28 IMPRESSION: 1. Few small right lower quadrant nodes could reflect mesenteric adenitis. 2. Otherwise no focal acute inflammatory process. 3. Hepatic steatosis. Electronically Signed: Wolfgang Martines MD at 12:24 EDT , Discharge Plan Triage Chief Complaint: Abd Pain Other Complaint: Nausea/Vomiting/Diarrhea ED Provider: Erin Campos Dx/Rx/DC Orders Clinical Impression: Viral gastroenteritis, Abdominal pain Instructions: ED Abdominal Pain Unkn Cause Fem, ED Gastroenteritis, Viral (Adult) Prescriptions: New ondansetron [ondansetron] 4 mg tablet,disintegrating 4 mg PO Q8H PRN PRN (Reason: Nausea) Qty: 10 0RF dicyclomine 10 mg capsule 20 mg PO TIDAC Qty: 20 0RF No Action dicyclomine 10 mg capsule 20 mg PO TIDAC PRN (Reason: nausea and vomiting) Qty: 40 0RF famotidine [Pepcid] 40 mg tablet 40 mg PO BID Qty: 60 1RF azithromycin 250 mg tablet See Rx Instructions PO .COMPLEX Qty: 6 0RF Rx Instructions: For 250 mg dose pack: take 500 mg today (day 1), then 250 mg for 4 days (days 2-5) PO Primary Care Provider: Denise Muñoz Referrals: Denise Muñoz MD [Primary Care Provider] - 3-5 Days Disposition Disposition: Home, Self Care Discharge Date/Time: 12/31/22 13:13
[2022-12-31] MEDS: Ondansetron 4 MG/2 ML Vial IV (11:02)
[2022-12-31] MEDS: 0.9% Normal Saline 1,000 ML 125 ML IV (11:02)
[2022-12-31 11:11] LABS: Absolute Lymphocyte Count 1.22 X10^3/uL (0.83-4.51); Absolute Neutrophil Count 15.8 X10^3/uL (2.0-7.7); Basophil# 0.05 X10^3/uL; Basophil% 0.3 % (0-1); Eosinophil# 0.01 X10^3/uL; Eosinophils% 0.1 % (0-5); Hematocrit 43.5 % (37-47); Hemoglobin 14.2 g/dL (12.0-15.0); Lymphocyte # 1.22 X10^3/ul (0.83-4.51); Lymphocyte % 6.8 % (19-41); Mean Corp Hgb Conc 32.6 g/dL (32-36); Mean Corpuscular Hgb 26.6 pg (27.0-32.0); Mean Corpuscular Volume 81.6 fL (81-99); Mean Platelet Vol. 8.6 fl (6.2-12.0); Monocyte# 0.85 X10^3/uL; Monocyte% 4.7 % (0-10); NRBC Flagged by Analyzer 0 % (0-5); Neutrophil % 87.8 % (47-70); Platelet Count 345 K/mm3 (150-450); RBC Distribution Width CV 13.2 % (11.6-14.6); RBC Distribution Width SD 39.2 fl (35.1-43.9); Red Blood Count 5.33 M/mm3 (4.2-5.4)
[2022-12-31 11:15] LABS: Internal QC Validated? YES +Cl - CLEAR BKGD; Pregnancy, Serum, hCG Quali. NEGATIVE Negative
[2022-12-31 11:15] LABS: Bacteria 0 SEEN /hpf (None Seen); Mucous, Urine 0 SEEN /hpf (<or=2+); Red Blood Cells-Urine 0 SEEN /hpf (0-5); Squamous Epithelial Cells - UA 0 SEEN /hpf (5-10); White Blood Cells 0 SEEN /hpf (0-5)
[2022-12-31 11:22] LABS: ALB/GLOB Ratio 0.9 RATIO (0.9-2.4); AST(SGOT) 32 U/L (15-37); Alanine Aminotransfer ALT/SGPT 71 U/L (13-56); Albumin, Serum 3.8 g/dL (3.2-5.0); Alkaline Phosphatase 70 U/L (45-117); Anion Gap 6 (5-15); BUN 11 mg/dL (7-18); BUN/Creat Ratio 14.2 RATIO (10-20); Calcium,Total 9.2 mg/dL (8.5-10.1); Chloride 107 mmol/L (98-107); Creatinine, Serum 0.78 mg/dL (0.55-1.02); EST Glomerular Filtration Rate 98 mL/min (>60); Est Glom Filt Rate - Afr Amer 119 mL/min (>60); Estimated Creatinine Clearance 85.37 ml/min; Globulin 4.4 g/dL (2.2-4.2); Glucose 109 mg/dL (74-106); Potassium 3.9 mmol/L (3.5-5.1); Protein, Total 8.2 g/dL (6.4-8.2); Sodium Level 139 mmol/L (136-145)
[2022-12-31 11:31] LABS: Color, Urine Yellow (Yellow); Glucose, Dipstick Normal (Normal); Ketone-Dipstick Negative (Negative); Leukocyte Esterase-Dipstick Negative /ul (Negative); Nitrite-Dipstick Negative (Negative); Occult Blood-Urine Negative /ul (Negative); Protein-Dipstick Negative (Negative); Urine Bilirubin Dipstick Negative (Negative); Urine Clarity Clear (Clear); Urine Urobilinogen Normal (Normal)
[2022-12-31 12:48] VITALS: BP 126/78; PULSE 78; RESP 16; TEMP 36.6; O2SAT 100
== END 2022-12-31 13:13 | disposition home or self-care (01) ==
PROVIDERS: Emergency Provider Emergency Medicine; PCP Internal Medicine; Visit Provider Emergency Medicine
DX: A08.4 Viral intestinal infection, unspecified (principal); Z87.891 Personal history of nicotine dependence
CPT/HCPCS: 74176; 80053; 81001; 84703; 85025; 96361; 96374; 99283; J7030; J2405

== ENCOUNTER → 2023-01-04 | Outpatient (CLI) | payer SELFPAY ==
[2023-01-04 13:01] LABS: Absolute Lymphocyte Count 2.79 X10^3/uL (0.83-4.51); Basophil# 0.06 X10^3/uL; Basophil% 0.8 % (0-1); Eosinophil# 0.08 X10^3/uL; Eosinophils% 1.1 % (0-5); Hematocrit 41.1 % (37-47); Hemoglobin 13.3 g/dL (12.0-15.0); Lymphocyte # 2.79 X10^3/ul (0.83-4.51); Lymphocyte % 37.4 % (19-41); Mean Corp Hgb Conc 32.4 g/dL (32-36); Mean Corpuscular Hgb 26.9 pg (27.0-32.0); Mean Corpuscular Volume 83.2 fL (81-99); Mean Platelet Vol. 9.1 fl (6.2-12.0); Monocyte# 0.54 X10^3/uL; Monocyte% 7.2 % (0-10); NRBC Flagged by Analyzer 0 % (0-5); Neutrophil # 3.97 X10^3/uL (2.7-7.7); Neutrophil % 53.2 % (47-70); Platelet Count 366 K/mm3 (150-450); RBC Distribution Width CV 13.2 % (11.6-14.6); RBC Distribution Width SD 39.9 fl (35.1-43.9); Red Blood Count 4.94 M/mm3 (4.2-5.4); White Blood Count 7.5 K/mm3 (4.4-11.0)
[2023-01-04 13:20] LABS: Cholesterol 193 mg/dL (200); High Density Lipoprotein 37 mg/dL; Thyroid Stim Hormone (TSH) 1.15 uIU/mL (0.358-3.74); Triglycerides 105 mg/dL; Very Low Density Lipoprotein 21 mg/dL (5-40)
[2023-01-04 13:29] LABS: ALB/GLOB Ratio 0.9 RATIO (0.9-2.4); AST(SGOT) 22 U/L (15-37); Alanine Aminotransfer ALT/SGPT 53 U/L (13-56); Albumin, Serum 3.7 g/dL (3.2-5.0); Alkaline Phosphatase 67 U/L (45-117); Anion Gap 8 (5-15); BUN 12 mg/dL (7-18); BUN/Creat Ratio 13.9 RATIO (10-20); Calcium,Total 9.3 mg/dL (8.5-10.1); Chloride 107 mmol/L (98-107); Creatinine, Serum 0.86 mg/dL (0.55-1.02); EST Glomerular Filtration Rate 87 mL/min (>60); Est Glom Filt Rate - Afr Amer 106 mL/min (>60); Globulin 4.2 g/dL (2.2-4.2); Glucose 94 mg/dL (74-106); Potassium 4.3 mmol/L (3.5-5.1); Protein, Total 7.9 g/dL (6.4-8.2); Sodium Level 138 mmol/L (136-145)
[2023-01-04 13:37] LABS: Vitamin D,25 Hydroxy 24.8 ng/mL
[2023-01-04 13:40] LABS: Hemoglobin A1c 5.6 % (3.8-5.6)
[2023-01-05 15:08] LABS: Thyroglobulin Antibody < 1.0 IU/mL (0.0-0.9); Thyroid Peroxidase AB < 9 IU/mL (0-34)
== END | disposition home or self-care (01) ==
LOC: BIMLAB 08:11
PROVIDERS: PCP Internal Medicine; Referring Provider Internal Medicine; Visit Provider Internal Medicine
DX: Z00.00 Encounter for general adult medical examination without abnormal findings (principal); K76.0 Fatty (change of) liver, not elsewhere classified; E66.9 Obesity, unspecified; E55.9 Vitamin D deficiency, unspecified; R10.9 Unspecified abdominal pain; R73.9 Hyperglycemia, unspecified; Z13.220 Encounter for screening for lipoid disorders
CPT/HCPCS: 36415; 80053; 80061; 82306; 83036; 84439; 84443; 84481; 85025; 86376; 86800

== ENCOUNTER 2023-01-19 10:44 | Emergency (ER) | payer OTHER, SELFPAY ==
[2023-01-19 10:45] VITALS: BP 146/93; PULSE 105; RESP 16; TEMP 36.3; O2SAT 98; BMI 38.9
[2023-01-19] MEDS: Cephalexin 250 MG Capsule 500 MG PO (11:10)
[2023-01-19] MEDS: Smz/Tmp Ds Tablet 1 TABLET PO (11:10)
--- NOTE | 2023-01-19 11:25 | EDS_ITS ---
HPI History of Present Illness Chief Complaint: Bite Informant: patient Narrative Narrative: Increasing redness burning right proximal forearm after waking. She is concerned of a spider bite. Did not see a spider. Previous similar incident in the past improved with antibiotics. She feels hot and sweaty. Denies vomiting. Allergies to Augmentin. Prior similar symptoms: Yes PFSH PFSH Medical History Cough Home Medications dicyclomine 10 mg capsule 20 mg (2 x 10 mg) PO TIDAC PRN nausea and vomiting #40 CAPSULES 09/19/22 [Rx Last Taken Unknown] dicyclomine 10 mg capsule 20 mg (2 x 10 mg) PO TIDAC #20 CAPSULES 12/31/22 [Rx Last Taken Unknown] ondansetron 4 mg disintegrating tablet 4 mg PO Q8H PRN PRN Nausea #10 tabs 12/31/22 [Rx Last Taken Unknown] pantoprazole 40 mg granules delayed-release for susp in packet (Protonix) 40 mg PO DAILY #30 ea 01/04/23 [Rx Last Taken Unknown] psyllium husk (with sugar) 3 gram/7 gram oral powder (Metamucil (with sugar)) 1 tbsp PO DAILY #798 grams 01/04/23 [Rx Last Taken Unknown] cholecalciferol (vitamin D3) 25 mcg (1,000 unit) capsule 25 mcg PO DAILY 01/09/23 [History Last Taken Unknown] cephalexin 500 mg capsule 500 mg PO Q6 #20 CAPSULES 01/19/23 [Rx Last Taken Unknown] sulfamethoxazole 800 mg-trimethoprim 160 mg tablet 1 tab PO BID #10 TABLETS 01/19/23 [Rx Last Taken Unknown] Allergy/AdvReac Type Severity Reaction Status Date / Time aluminum Allergy Rash Verified 01/19/23 10:45 amoxicillin trihydrate Allergy Chest Verified 01/19/23 10:45 [From Augmentin] tightness potassium clavulanate Allergy Chest Verified 01/19/23 10:45 [From Augmentin] tightness Family History Grandmother Breast cancer HER2-positive carcinoma of breast Other CAD (coronary artery disease) Diabetes Hypertension Kidney disease Thyroid disorder Social History current occupational status: employed current occupation: [employer] Smoking Status: Former smoker Smokeless tobacco user: dissolvable tobacco alcohol intake: current alcohol intake frequency: holidays/special occasions only substance use type: does not use caffeine: Yes what type of physical activity do you participate in: walking seatbelt use: always do you feel safe at home: Yes ROS ROS ED Constitutional Constitutional ED: Denies chills, fever(s) or sweats Eyes Eyes: Denies change in vision ENT ENT ED: Denies dysphagia or sore throat Cardiovascular Cardiovascular: Denies chest pain, leg edema, palpitations or racing heartbeat Respiratory/Chest Respiratory/Chest: Denies cough, dyspnea or dyspnea on exertion Gastrointestinal Gastrointestinal: Denies abdominal pain, diarrhea, nausea or vomiting Genitourinary Genitourinary ED: Denies dysuria, hematuria or urinary frequency Musculoskeletal Musculoskeletal: Denies back pain, extremity pain or neck pain Integumentary Reports rash; Denies wounds Neurologic Neurologic: Denies headache(s), paresthesias or weakness EXAM Physical Exam Const Vital Signs: 01/19/23 10:45 Temperature 97.3 F L Temperature Source Temporal Pulse Rate 105 H Respiratory Rate 16 Blood Pressure 146/93 H Blood Pressure Mean 110 Pulse Ox 98 Oxygen Delivery Method Room Air Positive well nourished and well developed General Appearance ED: well developed and NAD HEENT Reports moist mucous membranes normocephalic and atraumatic Eyes PERRL, EOMs intact bilaterally and conjunctivae normal General Eye ED: Yes normal appearance of both eyes Neck no lymphadenopathy and supple General: Negative for tenderness Chest Wall Chest: Negative for tenderness Resp normal respiratory effort and normal air movement Effort and Inspection: symmetric chest movement; Negative for respiratory distress Cardio regular rate, regular rhythm and no murmurs Peripheral Pulses: pulses 2+ throughout GI normal to inspection, nondistended, normoactive bowel sounds and non-tender Palpation: Negative for guarding or rebound tenderness present Back/Spine no CVA tenderness and no thoracic nor lumbar tenderness Extremity normal to inspection General Extremety ED: Negative for edema or tenderness General Extremity: Negative for edema Neuro oriented x3 and no sensory deficits noted Sensorium / Orientation: awake and alert Skin Skin Narrative: Right forearm: Proximal dorsal aspect circumferential erythema 4 cm x 3 cm in the middle 2 puncture wounds approximately half centimeter apart. No fluctuance. No drainage. No streaking up the arm. MDM MDM MDM Narrative Medical decision making narrative: Interventions / MDM: Differential diagnosis: Insect bite, cellulitis Diagnosis considered but do not suspect: No clinical abscess My EKG interpretation: N/A Imaging independently reviewed and interpreted by myself: N/A External documents reviewed: N/A Test considered but not ordered:N/A ED course: Patient afebrile, exam with 2 puncture wounds consistent with central fang injury. No abscess she has surrounding cellulitis. Allergic to penicillin family. Keflex and Bactrim started. The erythema was outlined. Discussed with patient return precautions. First dose of antibiotics in the ED with prescription sent to her pharmacy. Re-evaluation: stable Disposition discussed with patient/family/significant other: Patient Case discussed with consulting clinician: N/A This note was generated with [employer] dictation software. It may contain incorrect words, spelling, and punctuation that were not noted in checking the note before signing. Discharge Plan Triage Chief Complaint: Bite ED Provider: Rickey Marquez Dx/Rx/DC Orders Clinical Impression: Cellulitis, Insect bite Instructions: ED Cellulitis, ED Insect Bite Prescriptions: New sulfamethoxazole-trimethoprim [sulfamethoxazole-trimethoprim] 800-160 mg tablet 1 tab PO BID Qty: 10 0RF cephalexin [cephalexin] 500 mg capsule 500 mg PO Q6 Qty: 20 0RF No Action dicyclomine 10 mg capsule 20 mg PO TIDAC PRN (Reason: nausea and vomiting) Qty: 40 0RF pantoprazole [Protonix] [address] for susp in packet 40 mg PO DAILY Qty: 30 0RF Metamucil (with sugar) 3 gram/7 gram powder 1 tbsp PO DAILY Qty: 798 0RF ondansetron [ondansetron] 4 mg tablet,disintegrating 4 mg PO Q8H PRN PRN (Reason: Nausea) Qty: 10 0RF dicyclomine 10 mg capsule 20 mg PO TIDAC Qty: 20 0RF cholecalciferol (vitamin D3) 25 mcg (1,000 unit) capsule 25 mcg PO DAILY Stand Alone Forms: ED Work / School Excuse Primary Care Provider: Denise Muñoz Referrals: Denise Muñoz MD [Primary Care Provider] - 1 Week Activity Restrictions/Additional Instructions: Take antibiotic as prescribed. Follow-up with your doctor. Return if worsening symptoms. Disposition Disposition: Home, Self Care
== END 2023-01-19 11:22 | disposition home or self-care (01) ==
PROVIDERS: Emergency Provider Emergency Medicine; PCP Internal Medicine; Visit Provider Emergency Medicine
DX: S50.861A Insect bite (nonvenomous) of right forearm, initial encounter (principal); L03.113 Cellulitis of right upper limb; Z87.891 Personal history of nicotine dependence; W57.XXXA Bitten or stung by nonvenomous insect and other nonvenomous arthropods, initial encounter
CPT/HCPCS: 99284

== ENCOUNTER → 2023-01-23 | Outpatient (CLI) | payer OTHER, SELFPAY ==
[2023-01-24 22:17] LABS: Chlamydia By Nucleic Acid AMP Negative (Negative); Gonococcus By Nucleic Acid AMP Negative (Negative)
[2023-01-26 17:28] LABS: HPV Reflexed? NOT INDICATED
== END | disposition home or self-care (01) ==
LOC: LABSPEC 12:03
PROVIDERS: Referring Provider Nurse Practitioner Women's Health; Visit Provider Nurse Practitioner Women's Health
DX: Z12.4 Encounter for screening for malignant neoplasm of cervix (principal); R10.2 Pelvic and perineal pain
CPT/HCPCS: 87491; 87591; 88175; G0145

== ENCOUNTER 2023-03-07 06:50 | Emergency (ER) | payer OTHER, SELFPAY ==
[2023-03-07 06:51] VITALS: BP 134/96; PULSE 111; RESP 18; TEMP 36.1; O2SAT 100; BMI 38.7
--- NOTE | 2023-03-07 07:12 | EDS_ITS ---
HPI History of Present Illness Chief Complaint: Headache Informant: patient Narrative Narrative: Nontraumatic frontal headache since yesterday morning. Persistent. No recent falls or head injuries. No fevers. Nausea without vomiting. Photophobia. Edition this morning for loose stools as watery nonbloody. Ate Haitian food left over 2 days ago. History of similar however years ago. Allergies to Augmentin. No urinary symptoms. Reports neck pain. Prior similar symptoms: Yes PFSH PFSH Medical History Abdominal cramping Anxiety Depression Home Medications ondansetron 4 mg disintegrating tablet 4 mg PO Q8H PRN PRN Nausea #10 tabs 12/31/22 [Rx Last Taken Unknown] psyllium husk (with sugar) 3 gram/7 gram oral powder (Metamucil (with sugar)) 1 tbsp PO DAILY #798 grams 01/04/23 [Rx Last Taken Unknown] cholecalciferol (vitamin D3) 25 mcg (1,000 unit) capsule 25 mcg PO DAILY 01/09/23 [History Last Taken Unknown] Saccharomyces boulardii 250 mg capsule (Probiotic (S.boulardii)) 500 mg PO DAILY 01/19/23 [History Last Taken Unknown] biotin 10,000 mcg chewable tablet (Hair, Skin and Nails (biotin)) 2 mcg PO DAILY 01/19/23 [History Last Taken Unknown] bupropion HCl 150 mg tablet,12 hr sustained-release (Wellbutrin SR) 150 mg PO QHS #30 ea 01/19/23 [Rx Last Taken Unknown] dicyclomine 20 mg tablet 20 mg PO TID PRN abdominal pain #90 tabs 01/19/23 [Rx Last Taken Unknown] fluoxetine 10 mg capsule (Prozac) 10 mg PO DAILY #30 caps 01/19/23 [Rx Last Erik en Unknown] pantoprazole 40 mg tablet,delayed release 40 mg PO DAILY #30 tabs 01/19/23 [Rx Last Taken Unknown] cranberry 400 mg capsule 400 mg PO DAILY 03/07/23 [History Last Taken Unknown] Allergy/AdvReac Type Severity Reaction Status Date / Time aluminum Allergy Rash Verified 03/07/23 06:50 amoxicillin trihydrate Allergy Chest Verified 03/07/23 06:50 [From Augmentin] tightness potassium clavulanate Allergy Chest Verified 03/07/23 06:50 [From Augmentin] tightness Family History Grandmother Breast cancer HER2-positive carcinoma of breast Mother CAD (coronary artery disease) Hypertension Grandmother Diabetes Surgical History Hx of tympanostomy tubes Social History household members: none current occupational status: employed current occupation: [employer] Smoking Status: Former smoker quit date: 12/31/21 pack-years: 3 Electronic Cigarette Use: with nicotine how long ago did patient quit smoking: former vaping alcohol intake: current alcohol intake frequency: holidays/special occasions only substance use type: marijuana caffeine: Yes what type of physical activity do you participate in: walking seatbelt use: always do you feel safe at home: Yes ROS ROS ED Constitutional Constitutional ED: Denies chills, fever(s) or sweats Eyes Eyes: Denies change in vision ENT ENT ED: Denies dysphagia or sore throat Cardiovascular Cardiovascular: Denies chest pain, leg edema, palpitations or racing heartbeat Respiratory/Chest Respiratory/Chest: Denies cough, dyspnea or dyspnea on exertion Gastrointestinal Gastrointestinal: Reports diarrhea and nausea; Denies abdominal pain or vomiting Genitourinary Genitourinary ED: Denies dysuria, hematuria or urinary frequency Musculoskeletal Musculoskeletal: Reports neck pain; Denies back pain or extremity pain Integumentary Denies rash or wounds Neurologic Neurologic: Reports headache(s); Denies paresthesias or weakness EXAM Physical Exam Const Vital Signs: 03/07/23 06:51 Temperature 97 F L Temperature Source Temporal Pulse Rate 111 H Respiratory Rate 18 Blood Pressure 134/96 H Blood Pressure Mean 108 Pulse Ox 100 Positive well nourished and well developed General Appearance ED: well developed and NAD HEENT Reports moist mucous membranes normocephalic and atraumatic Eyes PERRL, EOMs intact bilaterally and conjunctivae normal General Eye ED: Yes normal appearance of both eyes Neck no lymphadenopathy, supple and no meningeal signs General: Negative for tenderness Chest Wall Chest: Negative for tenderness Resp normal respiratory effort and normal air movement Effort and Inspection: symmetric chest movement; Negative for respiratory distress Cardio regular rate, regular rhythm and no murmurs Peripheral Pulses: pulses 2+ throughout GI normal to inspection, nondistended, normoactive bowel sounds and non-tender Palpation: Negative for guarding or rebound tenderness present Back/Spine no CVA tenderness and no thoracic nor lumbar tenderness Extremity normal to inspection General Extremety ED: Negative for edema or tenderness General Extremity: Negative for edema Neuro oriented x3, CN's II-XII intact bilaterally and no sensory deficits noted Sensorium / Orientation: awake and alert Skin no rashes or lesions noted and no wounds MDM MDM MDM Narrative Medical decision making narrative: Interventions / MDM: Differential diagnosis: Headache, diarrhea Diagnosis considered but do not suspect: Low clinical concerns for meningitis, no C. difficile risk factors. My EKG interpretation: N/A Imaging independently reviewed and interpreted by myself: N/A External documents reviewed: N/A Test considered but not ordered:N/A ED course: Patient present with migraine symptoms there is no meningismus. No focal deficits. Also complains of diarrhea with no recent antibiotics. She tachycardic on arrival. IV established fluids electrolytes ordered for evaluation. Treated with Reglan and Benadryl. 0750: hCG negative. Potassium returned at 3.2 creatinine 0.98. Oral potassium replaced. Patient started to feel better at this point. Re-evaluation: 0845: Symptoms improved on reevaluation. Patient continue oral fluids for hydration. Outpatient follow-up. Return precautions. Disposition discussed with patient/family/significant other: Patient Case discussed with consulting clinician: N/A This note was generated with [employer] dictation software. It may contain incorrect words, spelling, and punctuation that were not noted in checking the note before signing. Lab Data Attestation: I reviewed the patient's lab results. Labs: Laboratory Results - last 24 hr 03/07/23 06:55 Sodium 134 L Potassium 3.2 L Chloride 103 Carbon Dioxide 26.0 Anion Gap 5 BUN 9 Creatinine 0.98 Estim Creat Clear Calc 67.95 Est GFR (MDRD) Af Amer 91 Est GFR (MDRD) Non-Af 75 BUN/Creatinine Ratio 9.2 L Glucose 97 Calcium 8.7 Serum , Qual NEGATIVE Discharge Plan Triage Chief Complaint: Headache ED Provider: Rickey Marquez Dx/Rx/DC Orders Clinical Impression: Diarrhea, Headache, migraine, Acute hypokalemia Instructions: ED Diarrhea, Unknown Cause, ED, Migraine (Classical) Prescriptions: No Action Metamucil (with sugar) 3 gram/7 gram powder 1 tbsp PO DAILY Qty: 798 0RF Saccharomyces boulardii [Probiotic (S.boulardii)] 250 mg capsule 500 mg PO DAILY Hair, Skin and Nails (biotin) 10,000 mcg tablet,chewable 2 mcg PO DAILY Rx Instructions: 2 GUMMIES DAILY dicyclomine 20 mg tablet 20 mg PO TID PRN (Reason: abdominal pain) Qty: 90 0RF pantoprazole 40 mg tablet,delayed release (DR/EC) 40 mg PO DAILY Qty: 30 0RF bupropion HCl [Wellbutrin SR] 150 mg tablet sustained-release 12 hr 150 mg PO QHS Qty: 30 1RF fluoxetine [Prozac] 10 mg capsule 10 mg PO DAILY Qty: 30 1RF ondansetron [ondansetron] 4 mg tablet,disintegrating 4 mg PO Q8H PRN PRN (Reason: Nausea) Qty: 10 0RF cranberry 400 mg capsule 400 mg PO DAILY Rx Instructions: administer with a meal cholecalciferol (vitamin D3) 25 mcg (1,000 unit) capsule 25 mcg PO DAILY Stand Alone Forms: ED Work / School Excuse Primary Care Provider: Asya Kan Referrals: Asya Kan MD [Primary Care Provider] - 1 Week Disposition Disposition: Home, Self Care
[2023-03-07 07:35] LABS: Internal QC Validated? YES +Cl - CLEAR BKGD; Pregnancy, Serum, hCG Quali. NEGATIVE Negative
[2023-03-07 07:40] LABS: Anion Gap 5 (5-15); BUN 9 mg/dL (7-18); BUN/Creat Ratio 9.2 RATIO (10-20); Calcium,Total 8.7 mg/dL (8.5-10.1); Chloride 103 mmol/L (98-107); Creatinine, Serum 0.98 mg/dL (0.55-1.02); EST Glomerular Filtration Rate 75 mL/min (>60); Est Glom Filt Rate - Afr Amer 91 mL/min (>60); Estimated Creatinine Clearance 67.95 ml/min; Glucose 97 mg/dL (74-106); Potassium 3.2 mmol/L (3.5-5.1); Sodium Level 134 mmol/L (136-145)
[2023-03-07] MEDS: DiphenhydrAMINE 50 MG/ML Syringe 25 MG IV (07:40)
[2023-03-07] MEDS: Metoclopramide 10 MG/2 ML Vial IV (07:40)
[2023-03-07] MEDS: 0.9% Normal Saline 1,000 ML 999 ML IV (07:40)
[2023-03-07] MEDS: Potassium Chloride Oral Tablet 20 MEQ 40 MEQ PO (08:04)
[2023-03-07 09:16] VITALS: BP 129/74; PULSE 62; RESP 15; O2SAT 98
== END 2023-03-07 09:17 | disposition home or self-care (01) ==
PROVIDERS: Emergency Provider Emergency Medicine; PCP Internal Medicine; Visit Provider Emergency Medicine
DX: G43.909 Migraine, unspecified, not intractable, without status migrainosus (principal); E87.6 Hypokalemia; R19.7 Diarrhea, unspecified; Z87.891 Personal history of nicotine dependence
CPT/HCPCS: 80048; 84703; 96361; 96374; 96375; 99283; J7030; A4216

== ENCOUNTER 2023-09-25 06:32 | Emergency (ER) | payer SELFPAY ==
[2023-09-25] VITALS (7 sets, daily range): BP systolic 103–140; BP diastolic 59–94; PULSE 112–147; RESP 16–22; TEMP 36.5–36.6; O2SAT 97–100; BMI 36.8
--- NOTE | 2023-09-25 07:12 | EKG12_ITS ---
Test Reason : ANXIETY Blood Pressure : / mmHG Vent. Rate : 137 BPM Atrial Rate : 137 BPM P-R Int : 134 ms QRS Dur : 070 ms QT Int : 286 ms P-R-T Axes : 020 110 -19 degrees QTc Int : 431 ms Sinus tachycardia Right axis deviation T wave abnormality, consider inferior ischemia Abnormal ECG Confirmed by Abelardo Patel ([id number]), commercial production editor TIFFANY BELTRÁN ([id number]) on 09/26/2023 1:42:31 PM Referred By: Confirmed By:Abelardo Patel
--- NOTE | 2023-09-25 07:14 | EX.ED.DYSGE1 ---
HPI History of Present Illness Chief Complaint: Anxiety Narrative Narrative: 23-year-old female presents with multiple somatic complaints. She has history of anxiety and panic attacks but states she has not taken her Prozac in 3 days because she left in her car, had upper respiratory infection type symptoms, never went out to get it and forgot about taking it. She awoke this morning with acid reflux from the [place] that she ate last evening. She complains of a burning in her chest. States she has a pleuritic pain as well whenever she takes a deep breath it radiates towards her neck. She is nauseated but denies any vomiting. She has a really high heart rate as well and feels like she is having a panic attack again. This is similar to what she has had in the past. She states she is concerned because her mother has history of congestive heart failure. She denies leg swelling or other symptoms. She states she has history of chronic abdominal pain as well, and follows up with her primary care provider. [facility] Medical History Abdominal cramping Anxiety Depression Physical exam, pre-employment Home Medications cholecalciferol (vitamin D3) 25 mcg (1,000 unit) capsule 25 mcg PO DAILY 01/09/23 [History Last Taken Unknown] biotin 10,000 mcg chewable tablet (Hair, Skin and Nails (biotin)) 2 mcg PO DAILY 01/19/23 [History Last Taken Unknown] pantoprazole 40 mg tablet,delayed release 40 mg PO DAILY #30 tabs 01/19/23 [Rx Last Taken Unknown] cranberry 400 mg capsule 400 mg PO DAILY 03/07/23 [History Last Taken Unknown] bupropion HCl 150 mg tablet,12 hr sustained-release (Wellbutrin SR) 150 mg PO QHS #30 ea 06/16/23 [Rx Last Taken Unknown] fluoxetine 10 mg capsule (Prozac) 10 mg PO DAILY #30 caps 06/16/23 [Rx Last Taken Unknown] Allergy/AdvReac Type Severity Reaction Status Date / Time aluminum Allergy Rash Verified 09/25/23 06:36 amoxicillin trihydrate Allergy Chest Verified 09/25/23 06:36 [From Augmentin] tightness potassium clavulanate Allergy Chest Verified 09/25/23 06:36 [From Augmentin] tightness Family History Grandmother Breast cancer HER2-positive carcinoma of breast Mother CAD (coronary artery disease) Hypertension Grandmother Diabetes Surgical History Hx of tympanostomy tubes Social History household members: none current occupational status: employed current occupation: [employer] Smoking Status: Current every day smoker tobacco type: e-cigarettes Electronic Cigarette Use: with nicotine how long ago did patient quit smoking: former vaping alcohol intake: current alcohol intake frequency: holidays/special occasions only substance use type: marijuana caffeine: Yes what type of physical activity do you participate in: walking seatbelt use: always do you feel safe at home: Yes ROS ROS ED ROS Narrative Constitutional: No fever, no chills. HEENT: No sore throat. No neck pain. No loss of vision. No rhinorrhea. Cardiovascular: Positive pleuritic midsternal chest pain. Positive high heart rate/palpitations. No pedal edema. Respiratory: No cough, no shortness of breath. Abdominal: Burning epigastric abdominal pain. Positive nausea. No vomiting. Genitourinary: No dysuria. No hematuria. Musculoskeletal: No myalgias. No arthralgias. Neurologic: No headaches. No dizziness. No lightheadedness. Skin: No rash. No change in color. Psychiatric: No depression. Positive panic and anxiety. EXAM Physical Exam Narrative Exam Narrative: Afebrile. Vital signs noted. HEENT: Normocephalic. Atraumatic. PERRL, EOMI. Neck soft and supple. No point tenderness or step off. Cardiovascular: Positive tachycardia. No murmurs, rubs, or gallops appreciated. Respiratory: No tachypnea. Lungs clear to auscultation bilaterally. Gastrointestinal: Abdomen soft, nontender, with normoactive bowel sounds. No rebound or guarding. Neurological: Awake. Alert. Nonfocal, nonlateralizing. Skin: No rash. Normal color. No pallor. Musculoskeletal: No pedal edema. Full range of motion extremities. Const Vital Signs: 09/25/23 06:33 09/25/23 06:40 09/25/23 08:02 Temperature 97.7 F L Temperature Source Temporal Pulse Rate 147 H 137 H Respiratory Rate 22 H 19 H Respiratory Effort Normal Non-Labored Respiratory Depth Shallow Respiratory Pattern Tachypnea Blood Pressure 140/94 H 128/89 H Blood Pressure Mean 109 102 Pulse Ox 97 100 Oxygen Delivery Method Room Air Room Air Room Air 09/25/23 08:40 09/25/23 10:30 Temperature Temperature Source Pulse Rate 139 H 123 H Respiratory Rate 18 18 Respiratory Effort Respiratory Depth Respiratory Pattern Blood Pressure 128/89 H 129/88 H Blood Pressure Mean 102 101 Pulse Ox 98 100 Oxygen Delivery Method Room Air Room Air MDM MDM MDM Narrative Medical decision making narrative: I reviewed the patient's prior records. She has had visits for abdominal pain along with panic and anxiety. I will check baseline labs to rule out an electrolyte abnormality as a cause of her high heart rate. Also in the differential diagnosis is ACS versus pulmonary embolism for her tachycardia. Will goes against this is that her pulse ox is 97% on room air and she denies any significant risk factors for DVT. EKG was obtained and interpreted by myself independently as sinus tachycardia at 137 bpm without ectopy or acute ST changes. No STEMI. Her workup was pursued and I reviewed her laboratory work, she has a leukocytosis of 15.7 which it is nonspecific, hemoglobin is normal at 12.8, hematocrit 39.9, platelet count normal at 326. Electrolyte panel shows no evidence of dehydration with a normal sodium of 137, potassium normal at 3.7, chloride 104, creatinine normal at 0.86 with a BUN of 12. Glucose is appropriately elevated at 115 with a low anion gap of 4. I do not have concern for diabetic ketoacidosis. LFTs are grossly unremarkable. Initial high-sensitivity troponin is 4 with a repeat being 3 at 2 hours. I think that she has been ruled out with biomarkers for acute coronary syndrome. Her D-dimer is negative at 0.31, at her baseline where it was previously. test is negative/serum . Her lipase is also normal so I have low suspicion for pancreatitis. Patient began having more anxiety. I think this is secondary to her not taking her Prozac. She was administered Ativan 1 mg intravenously. Upon repeat examination at approximately 11 AM, she is more calm and her heart rate has come down to the 120s. I do feel that this is a sinus tachycardia and related to anxiety. She will be given 1 dose of Lopressor, and referred to cardiology for her sinus tachycardia. However, I do not feel that she requires admission at this time. She was instructed to take her psychiatric medications again, and follow-up with her primary care provider. I feel she can be discharged safely home with follow-up. Return instructions to the emergency department were reviewed. Disposition is discharged home in stable condition. History & Record Review Discussion w/independent historian: Patient Additional record(s) reviewed:: Prior outpatient record, Prior ED visit and Prior labs Lab Data Attestation: I reviewed the patient's lab results. Labs: Laboratory Results - last 24 hr 09/25/23 09/25/23 07:27 10:07 WBC 15.7 H RBC 4.97 Hgb 12.8 Hct 39.9 MCV 80.3 L MCH 25.8 L MCHC 32.1 RDW Std Deviation 40.0 RDW Coeff of Maryam 13.8 Plt Count 326 MPV 8.7 Immature Gran % (Auto) 0.300 Neut % (Auto) 84.1 H Lymph % (Auto) 10.[address] [place] % (Auto) 4.1 Eos % (Auto) 0.3 Baso % (Auto) 0.4 Absolute Neuts (auto) 13.2 H Absolute Lymphs (auto) 1.69 Nucleated RBC % 0 D-Dimer Quant (PE/DVT) 0.31 Sodium 137 Potassium 3.7 Chloride 104 Carbon Dioxide 29.0 Anion Gap 4 L BUN 12 Creatinine 0.86 Estim Creat Clear Calc 115.16 Est GFR (MDRD) Af Amer 105 Est GFR (MDRD) Non-Af 87 BUN/Creatinine Ratio 14.0 Glucose 115 H Calcium 9.0 Total Bilirubin 0.30 AST 23 ALT 45 Alkaline Phosphatase 62 Troponin I High Sens 4 3 Total Protein 7.5 Albumin 3.5 Globulin 4.0 Albumin/Globulin Ratio 0.9 Lipase 24 Serum , Qual NEGATIVE Radiography Diagnostic Testing: Clinical Impression(s) from Imaging Studies Chest X-Ray 09/25/23 07:40 IMPRESSION: No acute thoracic pathology. Electronically Signed: Francisco Vo MD at 8:18 EDT , Discharge Plan Triage Chief Complaint: Anxiety ED Provider: Reodica,Gordy Dx/Rx/DC Orders Clinical Impression: Anxiety, Sinus tachycardia, Chest pain Instructions: ED Anxiety Reaction, ED About Arrhythmias, ED Chest Pain, Uncertain Cause, ED Panic Attack Prescriptions: No Action Hair, Skin and Nails (biotin) 10,000 mcg tablet,chewable 2 mcg PO DAILY Rx Instructions: 2 GUMMIES DAILY pantoprazole 40 mg tablet,delayed release (DR/EC) 40 mg PO DAILY Qty: 30 0RF cranberry 400 mg capsule 400 mg PO DAILY Rx Instructions: administer with a meal cholecalciferol (vitamin D3) 25 mcg (1,000 unit) capsule 25 mcg PO DAILY fluoxetine [Prozac] 10 mg capsule 10 mg PO DAILY Qty: 30 3RF bupropion HCl [Wellbutrin SR] 150 mg tablet sustained-release 12 hr 150 mg PO QHS Qty: 30 3RF Primary Care Provider: Asya Kan Referrals: Asya Kan MD [Primary Care Provider] - As soon as possible Garima mEmanuel MD [Med Staff - Active Staff] - As Needed Disposition Disposition: Home, Self Care
[2023-09-25 07:36] LABS: Absolute Lymphocyte Count 1.69 X10^3/uL (0.83-4.51); Absolute Neutrophil Count 13.2 X10^3/uL (2.0-7.7); Basophil# 0.06 X10^3/uL; Basophil% 0.4 % (0-1); Eosinophil# 0.05 X10^3/uL; Eosinophils% 0.3 % (0-5); Hematocrit 39.9 % (37-47); Hemoglobin 12.8 g/dL (12.0-15.0); Lymphocyte # 1.69 X10^3/ul (0.83-4.51); Lymphocyte % 10.8 % (19-41); Mean Corp Hgb Conc 32.1 g/dL (32-36); Mean Corpuscular Hgb 25.8 pg (27.0-32.0); Mean Corpuscular Volume 80.3 fL (81-99); Mean Platelet Vol. 8.7 fl (6.2-12.0); Monocyte# 0.64 X10^3/uL; Monocyte% 4.1 % (0-10); NRBC Flagged by Analyzer 0 % (0-5); Neutrophil # 13.21 X10^3/uL (2.7-7.7); Neutrophil % 84.1 % (47-70); Platelet Count 326 K/mm3 (150-450); RBC Distribution Width CV 13.8 % (11.6-14.6); Red Blood Count 4.97 M/mm3 (4.2-5.4); White Blood Count 15.7 K/mm3 (4.4-11.0)
--- NOTE | 2023-09-25 07:40 | RAD_ITS ---
STUDY: X-RAY CHEST REASON FOR EXAM: Female, 23 years old. Chest pain TECHNIQUE: Frontal view of the chest COMPARISON: None. FINDINGS: The lungs are clear. There are no pleural effusions. There is no pneumothorax. The heart is normal in size. The visualized osseous structures are within normal limits. RAD/Chest 1 View (Portable) IMPRESSION: No acute thoracic pathology. Electronically Signed: Francisco Vo MD at 8:18 EDT ,
[2023-09-25] MEDS: 0.9% Normal Saline (1000mL) 1,000 ML 1000 ML IV (07:41)
[2023-09-25 07:46] LABS: Internal QC Validated? YES +Cl - CLEAR BKGD; Pregnancy, Serum, hCG Quali. NEGATIVE Negative
[2023-09-25 07:58] LABS: ALB/GLOB Ratio 0.9 RATIO (0.9-2.4); AST(SGOT) 23 U/L (15-37); Alanine Aminotransfer ALT/SGPT 45 U/L (13-56); Albumin, Serum 3.5 g/dL (3.2-5.0); Alkaline Phosphatase 62 U/L (45-117); Anion Gap 4 (5-15); BUN 12 mg/dL (7-18); Chloride 104 mmol/L (98-107); Creatinine, Serum 0.86 mg/dL (0.55-1.02); EST Glomerular Filtration Rate 87 mL/min (>60); Est Glom Filt Rate - Afr Amer 105 mL/min (>60); Estimated Creatinine Clearance 115.16 ml/min; Glucose 115 mg/dL (74-106); Lipase 24 U/L (13-75); Potassium 3.7 mmol/L (3.5-5.1); Protein, Total 7.5 g/dL (6.4-8.2); Sodium Level 137 mmol/L (136-145); Troponin-I HS (w/2H Reflex) 4 pg/mL (3.0-54.0)
[2023-09-25] MEDS: Ondansetron 4 MG/2 ML Vial IV (08:00)
[2023-09-25 08:26] LABS: D-Dimer Quantitative (DVT/PE) 0.31 FEU/ug/m (0.27-0.49)
[2023-09-25] MEDS: LORazepam 2 MG/ML Syringe 1 MG IV (08:31)
[2023-09-25 09:30] LABS: Reflex Troponin-HS? (from REC) Y
[2023-09-25 10:32] LABS: Troponin-I HS 3 pg/mL (3.0-54.0)
[2023-09-25] MEDS: Metoprolol Tartrate 5 MG/5 ML Vial IV (11:18)
== END 2023-09-25 12:22 | disposition home or self-care (01) ==
PROVIDERS: Emergency Provider Emergency Medicine; PCP Internal Medicine; Visit Provider Emergency Medicine
DX: F41.0 Panic disorder [episodic paroxysmal anxiety] (principal); T43.226A Underdosing of selective serotonin reuptake inhibitors, initial encounter; R07.9 Chest pain, unspecified; F32.A Depression, unspecified; R10.9 Unspecified abdominal pain; G89.29 Other chronic pain; F17.290 Nicotine dependence, other tobacco product, uncomplicated; Z79.899 Other long term (current) drug therapy; Z91.138 Patient's unintentional underdosing of medication regimen for other reason
CPT/HCPCS: 71045; 80053; 83690; 84484; 84703; 85025; 85379; 93005; 96361; 96374; 96375; 99284; J7030; A4216; J2405

== ENCOUNTER 2023-12-07 16:43 | Emergency (ER) | payer SELFPAY ==
[2023-12-07 16:44] VITALS: BP 138/94; PULSE 105; RESP 16; TEMP 35.7; O2SAT 99; BMI 38.6
[2023-12-07 18:16] LABS: Bacteria 0 SEEN /hpf (None Seen); Mucous, Urine 0 SEEN /hpf (<or=2+); Red Blood Cells-Urine 0 SEEN /hpf (0-5); White Blood Cells 0 SEEN /hpf (0-5)
[2023-12-07 18:17] LABS: Color, Urine Yellow (Yellow); Glucose, Dipstick Normal (Normal); Ketone-Dipstick Negative (Negative); Leukocyte Esterase-Dipstick Negative /ul (Negative); Nitrite-Dipstick Negative (Negative); Occult Blood-Urine Negative /ul (Negative); Protein-Dipstick Negative (Negative); Urine Bilirubin Dipstick Negative (Negative); Urine Clarity Clear (Clear); Urine Urobilinogen Normal (Normal)
[2023-12-07 18:20] LABS: Absolute Lymphocyte Count 3.32 X10^3/uL (0.83-4.51); Basophil# 0.05 X10^3/uL; Basophil% 0.4 % (0-1); Eosinophil# 0.04 X10^3/uL; Eosinophils% 0.3 % (0-5); Hematocrit 43.2 % (37-47); Hemoglobin 13.5 g/dL (12.0-15.0); Lymphocyte # 3.32 X10^3/ul (0.83-4.51); Lymphocyte % 27.1 % (19-41); Mean Corp Hgb Conc 31.3 g/dL (32-36); Mean Corpuscular Hgb 25.9 pg (27.0-32.0); Mean Corpuscular Volume 82.8 fL (81-99); Mean Platelet Vol. 8.9 fl (6.2-12.0); Monocyte# 0.84 X10^3/uL; Monocyte% 6.9 % (0-10); NRBC Flagged by Analyzer 0 % (0-5); Neutrophil # 7.98 X10^3/uL (2.7-7.7); Neutrophil % 65.1 % (47-70); Platelet Count 389 K/mm3 (150-450); RBC Distribution Width CV 13.5 % (11.6-14.6); RBC Distribution Width SD 40.7 fl (35.1-43.9); Red Blood Count 5.22 M/mm3 (4.2-5.4); White Blood Count 12.3 K/mm3 (4.4-11.0)
[2023-12-07 18:32] LABS: Squamous Epithelial Cells - UA 0-5 SEEN /hpf (5-10)
[2023-12-07 18:33] LABS: Internal QC Validated? YES +Cl - CLEAR BKGD; Pregnancy, Serum, hCG Quali. NEGATIVE Negative
--- NOTE | 2023-12-07 18:35 | CT_ITS ---
STUDY: CT ABDOMEN AND PELVIS WITH CONTRAST REASON FOR EXAM: Female, 23 years old. llq abdominal pain RADIATION DOSAGE (If Supplied By Facility): CTDIvol = ( 15.62 ) mGy, DLP = ( 1086.50 ) mGycm TECHNIQUE: Transaxial images were obtained from the dome of the diaphragm to the symphysis pubis without oral contrast. IV 100mL Isovue-300 was administered. Sagittal and coronal images were reconstructed. Individualized dose optimization techniques were used for this CT. COMPARISON: December 31, 2022. FINDINGS: The visualized lung bases are unremarkable. The visualized portions of the heart are within normal limits. Nonspecific fatty infiltrated liver with focal fatty sparing in the medial segment of left lobe. No mass or bile duct dilatation. Normal gallbladder and extrahepatic biliary system. Normal spleen. Normal pancreas. Normal bilateral adrenal glands. Normal right kidney. Normal left kidney. Normal visualized stomach. Normal small intestine. Normal colon. The appendix is visualized and appears normal. Tiny pericecal nodes without stranding in the fat Normal abdominal aorta. Normal inferior vena cava. Normal retroperitoneum. Poorly distended thick walled bladder likely of no significance Trace of fluid in the cul-de-sac possibly due to recent ovulation. Normal abdominal wall. Normal osseous structures. No significant change since prior exam CT/Abdomen/Pelvis W IV Cont ONLY IMPRESSION: Trace of fluid in the cul-de-sac possibly due to recent ovulation. No acute abnormalities identified with other findings as above Electronically Signed: Hollis Block MD at 19:10 EDT ,
[2023-12-07 18:49] LABS: ALB/GLOB Ratio 0.9 RATIO (0.9-2.4); AST(SGOT) 16 U/L (15-37); Alanine Aminotransfer ALT/SGPT 37 U/L (13-56); Alkaline Phosphatase 74 U/L (45-117); Anion Gap 4 (5-15); BUN 8 mg/dL (7-18); Calcium,Total 9.5 mg/dL (8.5-10.1); Chloride 105 mmol/L (98-107); Creatinine, Serum 0.89 mg/dL (0.55-1.02); EST Glomerular Filtration Rate 83 mL/min (>60); Est Glom Filt Rate - Afr Amer 100 mL/min (>60); Estimated Creatinine Clearance 102.06 ml/min; Globulin 4.5 g/dL (2.2-4.2); Glucose 98 mg/dL (74-106); Lipase 30 U/L (13-75); Potassium 3.7 mmol/L (3.5-5.1); Protein, Total 8.5 g/dL (6.4-8.2); Sodium Level 137 mmol/L (136-145)
[2023-12-07 19:46] VITALS: BP 135/82; PULSE 99; RESP 18; TEMP 36.1; O2SAT 98
--- NOTE | 2023-12-07 20:55 | EDS_ITS ---
HPI HPI - GI History of Present Illness Chief Complaint: Abd Pain Narrative Narrative: Patient presenting with left lower abdomen pain which started this morning. She states it was initially on the left and then started to radiate to the right side. Patient states has been having a lot of bowel movements today but has not had diarrhea. She has not had any urinary complaints. No fevers or chills. No nausea or vomiting. No history of abdominal surgeries. No history of kidney stones. PFSH PFS Medical History Physical exam, pre-employment Abdominal cramping Depression Anxiety Home Medications ?Medication ?Instructions ?Recorded ?Last Taken ?Type cholecalciferol (vitamin D3) 25 25 mcg PO DAILY 01/09/23 Unknown History mcg (1,000 unit) capsule biotin 10,000 mcg chewable tablet 2 mcg PO DAILY 01/19/23 Unknown History (Hair, Skin and Nails (biotin)) pantoprazole 40 mg tablet,delayed 40 mg PO DAILY #30 tabs 01/19/23 Unknown Rx release cranberry 400 mg capsule 400 mg PO DAILY 03/07/23 Unknown History bupropion HCl 150 mg tablet,12 hr 150 mg PO QHS #30 ea 10/17/23 Unknown Rx sustained-release (Wellbutrin SR) fluoxetine 10 mg capsule (Prozac) 10 mg PO DAILY #15 caps 12/07/23 Unknown Rx Allergy/AdvReac Type Severity Reaction Status Date / Time aluminum Allergy Rash Verified 12/07/23 16:44 amoxicillin trihydrate (From Allergy Chest Verified 12/07/23 16:44 Augmentin) tightness potassium clavulanate (From Allergy Chest Verified 12/07/23 16:44 Augmentin) tightness Family History Grandmother Breast cancer HER2-positive carcinoma of breast Mother CAD (coronary artery disease) Hypertension Grandmother Diabetes Surgical History Hx of tympanostomy tubes Social History household members: none current occupational status: employed current occupation: [employer] Smoking Status: Current every day smoker tobacco type: e-cigarettes Electronic Cigarette Use: with nicotine how long ago did patient quit smoking: former vaping alcohol intake: current alcohol intake frequency: holidays/special occasions only substance use type: marijuana caffeine: Yes what type of physical activity do you participate in: walking seatbelt use: always do you feel safe at home: Yes ROS ROS ED Constitutional Constitutional ED: Denies chills, fever(s) or sweats Eyes Eyes: Denies blurry vision or change in vision ENT ENT ED: Denies ear pain or sore throat Cardiovascular Cardiovascular: Denies chest pain, palpitations or racing heartbeat Respiratory/Chest Respiratory/Chest: Denies cough, dyspnea or sputum Gastrointestinal Gastrointestinal: Reports abdominal pain; Denies constipation, diarrhea, nausea or vomiting Genitourinary Genitourinary ED: Denies dysuria, hematuria or urinary frequency Musculoskeletal Musculoskeletal: Denies arthralgias, myalgias or neck pain Integumentary Denies abscess, Abrasions or rash Neurologic Neurologic: Denies headache(s), paresthesias or weakness Psychiatric Psychiatric: Denies anxiety, depression, suicidal ideation or suicidal thoughts Endocrine Endocrinology: Denies polydipsia or polyuria EXAM Physical Exam Const Vital Signs: 12/07/23 16:44 12/07/23 19:46 Temperature 96.3 F L 97.0 F L Temperature Source Temporal Pulse Rate 105 H 99 Respiratory Rate 16 18 Blood Pressure 138/94 H 135/82 H Blood Pressure Mean 108 99 Pulse Ox 99 98 Oxygen Delivery Method Room Air Positive well nourished General Appearance ED: NAD; Negative for pallor HEENT Reports moist mucous membranes Eyes PERRL and EOMs intact bilaterally Resp normal respiratory effort Cardio regular rate and regular rhythm GI Palpation: tender LLQ Back/Spine no CVA tenderness Neuro CN's II-XII intact bilaterally Sensorium / Orientation: alert Motor Exam: strength 5/5 throughout Psych mental status grossly normal and thought process normal Skin General Skin Exam: Negative for jaundice or pallor MDM MDM MDM Narrative Medical decision making narrative: Patient presenting with left lower abdominal pain. Patient presenting with right flank pain. Differential includes colitis, diverticulitis, gastritis, pancreatitis, constipation, UTI, pyelonephritis, renal calculi, ureteral calculi, bowel obstruction, malignancy, dehydration, electrolyte abnormalities, , ectopic , ovarian cyst, ovarian torsion. CBC will be obtained to assess white blood cell count, hemoglobin, platelets. CMP to assess renal function, electrolytes, liver function, glucose. Lipase to assess for pancreatitis. Urinalysis to assess for UTI. CBC shows leukocytosis 12.3. Hemoglobin 13.5. Renal function electrolytes normal. LFTs and lipase are normal. Urinalysis negative for infection and hCG negative. CT of the abdomen pelvis was obtained which is negative for acute findings other than a small amount of pelvic fluid in the cul-de-sac. Patient declined analgesia while she was in the ER because she states her pain has improved. I feel she stable for discharge at this time. Return precautions were discussed. Impression: 1. Abdominal pain Lab Data Attestation: I reviewed the patient's lab results. Labs: Laboratory Results - last 24 hr 12/07/23 18:00 WBC 12.3 H RBC 5.22 Hgb 13.5 Hct 43.2 MCV 82.8 MCH 25.9 L MCHC 31.3 L RDW Std Deviation 40.7 RDW Coeff of Maryam 13.5 Plt Count 389 MPV 8.9 Immature Gran % (Auto) 0.200 Neut % (Auto) 65.1 Lymph % (Auto) 27.1 [place] % (Auto) 6.9 Eos % (Auto) 0.3 Baso % (Auto) 0.4 Absolute Neuts (auto) 8.0 H Absolute Lymphs (auto) 3.32 Nucleated RBC % 0 Sodium 137 Potassium 3.7 Chloride 105 Carbon Dioxide 28.0 Anion Gap 4 L BUN 8 Creatinine 0.89 Estim Creat Clear Calc 102.06 Est GFR (MDRD) Af Amer 100 Est GFR (MDRD) Non-Af 83 BUN/Creatinine Ratio 9.0 L Glucose 98 Calcium 9.5 Total Bilirubin 0.20 AST 16 ALT 37 Alkaline Phosphatase 74 Total Protein 8.5 H Albumin 4.0 Globulin 4.5 H Albumin/Globulin Ratio 0.9 Lipase 30 Serum , Qual NEGATIVE Urine Color Yellow Urine Clarity Clear Urine pH 8.0 Ur Specific [place] 1.010 Urine Protein Negative Urine Glucose (UA) Normal Urine Ketones Negative Urine Occult Blood Negative Urine Nitrite Negative Urine Bilirubin Negative Urine Urobilinogen Normal Ur Leukocyte Esterase Negative Urine RBC 0 SEEN Urine WBC 0 SEEN Ur Squamous Epith Cells 0-5 SEEN Urine Bacteria 0 SEEN Urine Mucus 0 SEEN Radiography Diagnostic Testing: Clinical Impression(s) from Imaging Studies Abdomen/Pelvis CT 12/07/23 18:35 IMPRESSION: Trace of fluid in the cul-de-sac possibly due to recent ovulation. No acute abnormalities identified with other findings as above Electronically Signed: Hollis Block MD at 19:10 EDT Reading Location ID and State: [facility] / [place] Tel , Service support , Discharge Plan Triage Chief Complaint: Abd Pain ED Provider: Rk Haq Dx/Rx/DC Orders Instructions: ED Abdominal Pain Unkn Cause Fem Prescriptions: No Action Hair, Skin and Nails (biotin) 10,000 mcg tablet,chewable 2 mcg PO DAILY Rx Instructions: 2 GUMMIES DAILY pantoprazole 40 mg tablet,delayed release (DR/EC) 40 mg PO DAILY Qty: 30 0RF cranberry 400 mg capsule 400 mg PO DAILY Rx Instructions: administer with a meal cholecalciferol (vitamin D3) 25 mcg (1,000 unit) capsule 25 mcg PO DAILY bupropion HCl [Wellbutrin SR] 150 mg tablet sustained-release 12 hr 150 mg PO QHS Qty: 30 0RF fluoxetine [Prozac] 10 mg capsule 10 mg PO DAILY Qty: 15 0RF Primary Care Provider: Asya Kan Referrals: Asya Kan MD [Primary Care Provider] - Print Language: Armenian Disposition Disposition: Home, Self Care Discharge Date/Time: 12/07/23 19:47
== END 2023-12-07 19:47 | disposition home or self-care (01) ==
PROVIDERS: Emergency Provider Student in an Organized Health Care Education/Training Program; PCP Internal Medicine; Visit Provider Student in an Organized Health Care Education/Training Program
DX: R10.9 Unspecified abdominal pain (principal); F17.290 Nicotine dependence, other tobacco product, uncomplicated; Z79.899 Other long term (current) drug therapy; F41.9 Anxiety disorder, unspecified; F32.A Depression, unspecified
CPT/HCPCS: 74177; 80053; 81001; 83690; 84703; 85025; 99283; Q9967; A4216

== ENCOUNTER → 2024-01-02 | Outpatient (CLI) | payer SELFPAY ==
[2024-01-02 11:59] LABS: Absolute Neutrophil Count 4.7 X10^3/uL (2.0-7.7); Basophil# 0.06 X10^3/uL; Basophil% 0.7 % (0-1); Eosinophil# 0.06 X10^3/uL; Eosinophils% 0.7 % (0-5); Hemoglobin 13.2 g/dL (12.0-15.0); Lymphocyte % 36.8 % (19-41); Mean Corp Hgb Conc 30.7 g/dL (32-36); Mean Corpuscular Hgb 25.4 pg (27.0-32.0); Mean Corpuscular Volume 82.9 fL (81-99); Mean Platelet Vol. 9.2 fl (6.2-12.0); Monocyte# 0.62 X10^3/uL; Monocyte% 7.1 % (0-10); NRBC Flagged by Analyzer 0 % (0-5); Neutrophil # 4.74 X10^3/uL (2.7-7.7); Neutrophil % 54.5 % (47-70); Platelet Count 380 K/mm3 (150-450); RBC Distribution Width CV 13.7 % (11.6-14.6); RBC Distribution Width SD 41.2 fl (35.1-43.9); Red Blood Count 5.19 M/mm3 (4.2-5.4); White Blood Count 8.7 K/mm3 (4.4-11.0)
[2024-01-02 12:23] LABS: Thyroid Stim Hormone (TSH) 0.94 uIU/mL (0.358-3.74)
[2024-01-03 16:10] LABS: Endomysial Antibody IgA Negative (Negative); Immunoglobulin A 264 mg/dL (87-352); t-Transglutaminase IgA <2 U/mL (0-3)
[2024-01-04 13:58] LABS: Vitamin D,25 Hydroxy 21.4 ng/mL
[2024-01-05 15:08] LABS: Anti-Centromere B Ab <0.2 AI (0.0-0.9); Anti-Chromatin <0.2 AI (0.0-0.9); Anti-Jo <0.2 AI (0.0-0.9); Anti-Nuclear Antibody Test Positive (.); Anti-Scleroderma-70 AB <0.2 AI (0.0-0.9); Anti-dsDNA Ab 1 IU/mL (0-9); RNP Ab <0.2 AI (0.0-0.9); SJOGREN'S Anti-SS-A test < 0.2 AI (0.0-0.9); SJOGREN'S Anti-SS-B test < 0.2 AI (0.0-0.9); Smith Ab <0.2 AI (0.0-0.9)
== END | disposition home or self-care (01) ==
PROVIDERS: PCP Internal Medicine; Visit Provider Internal Medicine
DX: R10.9 Unspecified abdominal pain (principal); G89.29 Other chronic pain; F32.A Depression, unspecified; F41.9 Anxiety disorder, unspecified; E55.9 Vitamin D deficiency, unspecified
CPT/HCPCS: 36415; 82306; 82784; 83516; 84443; 85025; 86038; 86225; 86235; 86255

== ENCOUNTER 2024-06-16 21:21 | Emergency (ER) | payer SELFPAY ==
[2024-06-16 21:22] VITALS: BP 143/93; PULSE 113; RESP 16; TEMP 36.7; O2SAT 98; BMI 39.0
--- NOTE | 2024-06-16 21:38 | EX.ED.DYSGE1 ---
HPI History of Present Illness Chief Complaint: Abscess Informant: patient Narrative Narrative: 23-year-old female states she has had a sore on her left breast for a while but got worse today and so she squeezed it and got a little bit of blood and pus out. She has another small sore pimple on her right inner thigh. She denies any systemic symptoms or discharge from her nipple. [facility] Medical History Abdominal cramping Depression Anxiety Home Medications ?Medication ?Instructions ?Recorded ?Last Taken ?Type biotin 10,000 mcg chewable tablet 2 mcg PO DAILY 01/19/23 Unknown History (Hair, Skin and Nails (biotin)) propranolol 10 mg tablet 10 mg PO BID PRN anxiety #30 tabs 01/01/24 Unknown Rx bupropion HCl 150 mg tablet,12 hr 150 mg PO QHS #30 ea 02/19/24 Unknown Rx sustained-release (Wellbutrin SR) fluoxetine 20 mg capsule 20 mg PO DAILY #30 caps 03/20/24 Unknown Rx capsaicin 0.025 % topical cream 1 applic topical BID #25 grams 05/29/24 Unknown Rx mupirocin 2 % topical ointment 1 applic topical BID PRN infection 06/16/24 Unknown Rx #15 grams sulfamethoxazole 800 1 tab PO BID #14 TABLETS 06/16/24 Unknown Rx mg-trimethoprim 160 mg tablet Allergy/AdvReac Type Severity Reaction Status Date / Time aluminum Allergy Rash Verified 06/16/24 21:23 amoxicillin trihydrate (From Allergy Chest Verified 06/16/24 21:23 Augmentin) tightness potassium clavulanate (From Allergy Chest Verified 06/16/24 21:23 Augmentin) tightness Family History Grandmother Breast cancer HER2-positive carcinoma of breast Mother CAD (coronary artery disease) Hypertension Grandmother Diabetes Surgical History Hx of tympanostomy tubes Social History household members: other details: roommate current occupational status: employed current occupation: [employer] Smoking Status: Current every day smoker tobacco type: e-cigarettes Electronic Cigarette Use: with nicotine how long ago did patient quit smoking: former vaping alcohol intake: current alcohol intake frequency: holidays/special occasions only substance use type: marijuana caffeine: Yes what type of physical activity do you participate in: walking seatbelt use: always do you feel safe at home: Yes ROS ROS ED Constitutional Constitutional ED: Denies chills or fever(s) Integumentary Reports other Details: See HPI. No other rashes or lesions. EXAM Physical Exam Const Vital Signs: 06/16/24 21:22 Temperature 98.1 F Temperature Source Oral Pulse Rate 113 H Respiratory Rate 16 Blood Pressure 143/93 H Blood Pressure Mean 109 Pulse Ox 98 Oxygen Delivery Method Room Air Positive well nourished and well developed General Appearance ED: well developed and NAD Chest Wall Chest Narrative: Small wound lateral aspect of the left breast, does not involve the areola or nipple. It is open there is no active drainage. There is minimal amount of surrounding erythema and induration but there is no palpable subcutaneous extension. No fluctuance. Extremity normal to inspection Neuro oriented x3, CN's II-XII intact bilaterally and no sensory deficits noted Motor Exam: strength 5/5 throughout Psych mental status grossly normal Skin Skin Narrative: Very small area of infection at the lateral aspect of the left breast see above. There is a very small tender erythematous papule on the medial right thigh. There is no fluctuance it is not a pustule, there is nothing to incise or drain at this time. MDM MDM MDM Narrative Medical decision making narrative: Reasonable to treat this patient as if it could be a localized infection. MRSA is in the differential, but if she has had it for a long time and it just now came to ahead and it is small as it is, it may not be MRSA. Will cover for MRSA with Bactrim but also put her on mupirocin which should help take care of any localized strep or nonresistant staph. Nothing to incise and drain at this time. Discharge Plan Triage Chief Complaint: Abscess ED Provider: Tushar Hatfield Dx/Rx/DC Orders Clinical Impression: Abscess of left breast Instructions: ED Abscess Antibiotic Treatment Only Prescriptions: New sulfamethoxazole-trimethoprim 800-160 mg tablet 1 tab PO BID Qty: 14 0RF mupirocin 2 % ointment 1 applic topical BID PRN (Reason: infection) Qty: 15 0RF No Action Hair, Skin and Nails (biotin) 10,000 mcg tablet,chewable 2 mcg PO DAILY Rx Instructions: 2 GUMMIES DAILY propranolol 10 mg tablet 10 mg PO BID PRN (Reason: anxiety) Qty: 30 1RF capsaicin 0.025 % cream 1 applic topical BID Qty: 25 0RF Rx Instructions: do not wash area for at least 30 min after application bupropion HCl [Wellbutrin SR] 150 mg tablet sustained-release 12 hr 150 mg PO QHS Qty: 30 1RF fluoxetine 20 mg capsule 20 mg PO DAILY Qty: 30 3RF Primary Care Provider: Asya Kan Referrals: Asya Kan MD [Primary Care Provider] - 3-5 Days if not improving Print Language: [place] Disposition Disposition: Home, Self Care
[2024-06-16] MEDS: Smz/Tmp Ds Tablet 1 TABLET PO (21:47)
[2024-06-16 21:49] VITALS: BP 113/85; PULSE 77; RESP 16; TEMP 36.7; O2SAT 99
== END 2024-06-16 21:51 | disposition home or self-care (01) ==
LOC: ED 21:42
PROVIDERS: Emergency Provider Emergency Medicine; PCP Internal Medicine; Visit Provider Emergency Medicine
DX: N61.1 Abscess of the breast and nipple (principal); F17.290 Nicotine dependence, other tobacco product, uncomplicated
CPT/HCPCS: 99282

== ENCOUNTER → 2024-09-23 | Outpatient (CLI) | payer SELFPAY ==
[2024-09-23 20:43] LABS: hCG Titer Quant., Serum < 1 mIU/mL (<9 non-preg)
== END | disposition home or self-care (01) ==
PROVIDERS: PCP Internal Medicine; Referring Provider Obstetrics & Gynecology; Visit Provider Obstetrics & Gynecology
DX: Z32.01 Encounter for pregnancy test, result positive (principal)
CPT/HCPCS: 36415; 84702

== ENCOUNTER → 2025-01-15 | Outpatient (CLI) | payer SELFPAY ==
[2025-01-15 12:32] LABS: hCG Titer Quant., Serum < 1 mIU/mL (<9 non-preg)
== END | disposition home or self-care (01) ==
LOC: LAB 10:53
PROVIDERS: PCP Internal Medicine; Referring Provider Obstetrics & Gynecology; Visit Provider Obstetrics & Gynecology
DX: N91.2 Amenorrhea, unspecified (principal)
CPT/HCPCS: 36415; 84702

== ENCOUNTER → 2025-01-27 | Outpatient (CLI) | payer SELFPAY ==
[2025-01-29 20:08] LABS: Chlamydia By Nucleic Acid AMP Negative (Negative); Gonococcus By Nucleic Acid AMP Negative (Negative)
== END | disposition home or self-care (01) ==
LOC: LABSPEC 16:15
PROVIDERS: PCP Internal Medicine; Visit Provider Nurse Practitioner Women's Health
DX: Z20.2 Contact with and (suspected) exposure to infections with a predominantly sexual mode of transmission (principal)
CPT/HCPCS: 87491; 87591

== ENCOUNTER → 2025-02-07 | Outpatient (CLI) | payer SELFPAY ==
--- NOTE | 2025-02-07 16:24 | US_ITS ---
PROCEDURE: PELVIC W/ TRANSVAGINAL REASON FOR EXAM: PELVIC PAIN Dyspareunia TECHNIQUE: PELVIC W/ TRANSVAGINAL COMPARISON: None FINDINGS: LMP: January 17, 2025 Measurements: Uterus: 7.7 cm x 5.2 cm x 4.2 cm with a volume of 141 mL Endometrial Thickness: 7 mm Right Ovary: 2.5 cm x 2 cm x 2.1 cm with a volume of 5.6 mL. Left Ovary: 3.4 cm x 2.5 cm x 2.4 cm with a volume of 10.5 mL. TRANSABDOMINAL: Uterus: Normal size, myometrial echotexture, and contour. Endometrium: Unremarkable. Right ovary: Normal size and echotexture. Left ovary: Normal size and echotexture. Other: No large pelvic mass identified. Transvaginal sonography was performed to better visualize the endometrium. TRANSVAGINAL: Uterus: Anteverted. Endometrium: Normal echotexture. Right ovary: Normal size and echotexture. Left ovary: Normal size and echotexture. Other adnexal findings: None. Cul-de-sac: No free intraperitoneal fluid identified. Tenderness: No tenderness US/Pelvic w/ Transvaginal IMPRESSION: NORMAL TRANSABDOMINAL AND TRANSVAGINAL PELVIC ULTRASOUND. Reading Location: [place] [id number]
--- NOTE | 2025-02-07 16:24 | US_ITS ---
PROCEDURE: PELVIC W/ TRANSVAGINAL REASON FOR EXAM: PELVIC PAIN Dyspareunia TECHNIQUE: PELVIC W/ TRANSVAGINAL COMPARISON: None FINDINGS: LMP: January 17, 2025 Measurements: Uterus: 7.7 cm x 5.2 cm x 4.2 cm with a volume of 141 mL Endometrial Thickness: 7 mm Right Ovary: 2.5 cm x 2 cm x 2.1 cm with a volume of 5.6 mL. Left Ovary: 3.4 cm x 2.5 cm x 2.4 cm with a volume of 10.5 mL. TRANSABDOMINAL: Uterus: Normal size, myometrial echotexture, and contour. Endometrium: Unremarkable. Right ovary: Normal size and echotexture. Left ovary: Normal size and echotexture. Other: No large pelvic mass identified. Transvaginal sonography was performed to better visualize the endometrium. TRANSVAGINAL: Uterus: Anteverted. Endometrium: Normal echotexture. Right ovary: Normal size and echotexture. Left ovary: Normal size and echotexture. Other adnexal findings: None. Cul-de-sac: No free intraperitoneal fluid identified. Tenderness: No tenderness US/Pelvic w/ Transvaginal IMPRESSION: NORMAL TRANSABDOMINAL AND TRANSVAGINAL PELVIC ULTRASOUND. Reading Location: [place] [id number]
== END | disposition home or self-care (01) ==
LOC: US 16:23
PROVIDERS: PCP Internal Medicine; Referring Provider Nurse Practitioner Women's Health; Visit Provider Nurse Practitioner Women's Health
DX: R10.2 Pelvic and perineal pain (principal)
CPT/HCPCS: 76830; 76856

== ENCOUNTER 2025-03-30 17:59 | Emergency (ER) | payer SELFPAY ==
--- OUTSIDE RECORDS SUMMARY | 2025-03-07 17:00 | XMS RPT_ITS ---
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 Constitutional: General: She is not in acute distress. Appearance: Normal appearance. She is not ill-appearing or toxic-appearing. Cardiovascular: Rate and Rhythm: Normal rate and regular rhythm. Pulses: Normal pulses. Heart sounds: Normal heart sounds. No murmur heard. Pulmonary: Effort: Pulmonary effort is normal. Breath sounds: Normal breath sounds. Abdominal: General: Bowel sounds are normal. There is no distension. Palpations: Abdomen is soft. Tenderness: There is no abdominal tenderness (no suprapubic tenderness). There is no right CVA tenderness, left CVA tenderness or rebound. Skin: General: Skin is warm and dry. Neurological: Mental Status: She is alert and oriented to person, place, and time. Assessment/Plan 1. Acute cystitis without hematuria (Primary) - UA DIP, URINE (POC)- Trace Leukocytes - HCG QUAL UR B/O- Negative - nitrofurantoin monohydrate and macrocrystal (MACROBID) 100 mg capsule; Take 1 capsule by mouth two times a day with meals for 7 days. Dispense: 14 capsule; Refill: 0 Will send urine for culture Education/Discussion on Progestin only Oral Contraception and effectiveness overall and concern of few studies with Obesity and the need to discuss with her PCP/IMPORTER OR EXPORTER all Contraception options effective for her current situation. Over-the counter pills may not be her safest most effective option and should be discussed with her PCP. Patient advised to drink fluids, get rest and take all meds as prescribed. Patient given educational materials - see instructions. Discussed use, benefit, and side effects of prescribed medications. All questions answered. Patient advised to follow up with PCP in one week, or sooner if symptoms worsen or persist. If symptoms become severe- GO TO ED. Patient verbalized understanding and agreeable with treatment plan. Lang Dimas APRN MATERIAL DAMAGE ADJUSTER 09/10/2024 7:40 AM Allergies As of Date: 09/10/2024 Noted Allergy Reaction ALUMINUM 10/31/2013 2 - Rash AUGMENTIN (AMOXICILLIN-POT CLAVUL*03/11/2006 11 - Vomiting Date Reviewed: 09/10/2024 Reviewed by: Lang Dimas APRN.MATERIAL DAMAGE ADJUSTER - Fully Assessed Reason for Visit: Urinary Problem [252] Cmt: Pressure, frequency, nausea x 1 week Primary Visit Diagnosis:Acute cystitis without hematuria [N30.00] Order(s):UA DIP, URINE (POC) [[id number]] Order #: [id number]. #:[id number] HCG QUAL UR B/O [[id number]] Order #: [id number] UA DIP,URINE HCG (POC) [[id number]] Order #: [id number]. #:[id number] nitrofurantoin monohydrate and macrocrystal (MACROBID) 100 mg capsuleTake 1 capsule by mouth two times a day with meals for 7 days.Disp: 14 capsuleRfl: 0 BACTERIAL CULTURE, URINE [SQURCUL] Order #: [id number]. #:[id number] Prescriptions as of 09/10/2024 - propranolol (INDERAL) 10 mg tablet Take 10 mg by mouth once daily as needed. - nitrofurantoin monohydrate and macrocrystal (MACROBID) 100 mg capsule Take 1 capsule by mouth two times a day with meals for 7 days. - FLUoxetine (PROZAC) 20 mg capsule Take 1 capsule by mouth every afternoon. - buPROPion SR (ZYBAN SR; WELLBUTRIN SR) 150 mg 12 hr tablet Take by mouth. 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 A bladder infection, called cystitis, is the more common type. If the infection travels up to the kidneys, it is called pyelonephritis. This can be more serious. UTIs are a common problem in women. Having sexual relations can leave a woman more susceptible to developing a UTI, but it is not sexually transmitted like gonorrhea. Some women have a problem with recurrent UTIs. INSTRUCTIONS: 1. Your doctor prescribed an antibiotic to treat the UTI. Take exactly as directed. Be sure to take all the medication prescribed, even if your symptoms disappear. If you stop treatment early, the infection may not be fully treated and the symptoms could come back again. 2. Get plenty of rest. You may take acetaminophen for fever and aches. 3. Drink 6 to 8 glasses of fluids, especially water, every day. This helps wash out germs from your urinary tract. Cranberry juice or other sources of vitamin C are also good for you. 4. Urinate often, as soon as you feel the urge. Empty your bladder completely. Urinate before and after you have sex. 5. Always wipe from front to back after going to the bathroom. This pushes germs away from your bladder, rather than towards it. 6. Showers are better than baths, and you should wash the genital area daily. Avoid bubble bath or bath oils if you do take a bath. 7. Wear underwear and pantyhose with a cotton crotch. CONTACT YOUR DOCTOR: 1. You have a temperature over 102F (38.8C) after 48 hours on medication. 2. You notice blood in your urine. 3. Your symptoms don't improve in 2 days. 4. You develop nausea, vomiting, diarrhea, or a rash. 5. You develop new or unexplained symptoms. These may be related to the medication you are taking. 6. Your symptoms return after you finish treatment. RETURN TO THE EMERGENCY DEPARTMENT IF: You develop vomiting and can't keep your medication or fluids down. Prescriptions ordered this encounter Disp Refills Start End NITROFURANTOIN MONOHYDRATE AND MACROCR* 14 c* 0 09/10/2024 09/17/2024 Route: ORAL Sig: Take 1 capsule by mouth two times a day with meals for 7 days. Medications Discontinued During This Encounter Prescriptions - FLUoxetine (PROZAC) 10 mg capsule (Discontinued) Reported on 09/10/2024 - predniSONE (DELTASONE) 10 mg tablet (Discontinued) Reported on 09/10/2024 - predniSONE (DELTASONE) 10 mg tablet (Discontinued) Reported on 09/10/2024 - FLUoxetine (PROZAC) 10 mg capsule (Discontinued) Reported on 09/10/2024 Encounter Status:Closed by LANG DIMAS on 09/10/24 XR HIP JESICA 5V PEL+ AP/LAT EA HIP Observed: 09/04/2024 4:12 PM Status: F Source: [facility] * * *Final Report* * * DATE OF EXAM: Sep 04 2024 4:12PM WOX [id number] - XR HIP JESICA 5V PEL+ AP/LAT EA HIP / PROCEDURE REASON: Pain * * * * Physician Interpretation * * * * EXAM(s): XR HIP JESICA 5V PEL+ AP/LAT EA HIP HISTORY: Indication: Pain bilateral anterior hip pain x 2 weeks. NKI. TECHNIQUE: Images: XR HIP JESICA 5V PEL+ AP/LAT EA HIP Comparison: None. RESULT: Findings: Pelvis: No fractures or dislocations are seen. Bone density appears well preserved. Hip joints appear well-preserved. Sacroiliac joints and pubic symphysis are intact. Bone density appears well-preserved Right hip: No fractures or dislocations are seen. Left hip: No fractures or dislocations are seen. IMPRESSION: No acute pathology is identified Brain Surgeon: PSCB Transcribe Date/Time: Sep 04 2024 4:21P Dictated by : JER WHITE DO This examination was interpreted and the report reviewed and electronically signed by: JER WHITE DO on Sep 04 2024 4:21PM EST [id number] PROGRESS Observed: 09/04/2024 3:50 PM Status: COMPLETED Source: [facility] HNO ID: [id number] Author: FAUZIA CHO Tech Service: ? Author Type: Technologist Type: Progress Notes Filed: 09/04/2024 16:12 Note Text: Radiology Service Progress Note PATIENT NAME: Coleen Cade DATE OF SERVICE: September 04, 2024 TIME: 4:02 PM PATIENT IDENTITY VERIFICATION COMPLETED USING TWO (2) IDENTIFIERS: Name and Date of confirmed by patient verbally. FALL SCREENING: Has the patient had 2 falls in the last year or 1 fall with injury or currently using an Ambulatory Assistive Device (Walker, Cane, Wheelchair, Crutches, etc.)? No PATIENT GENDER DATA: Assigned female at . status: : No status: NO. PATIENT RELEVANT IMPLANT DATA REVIEWED: Not Applicable PATIENT PRESENTS WITH AN IMPLANTABLE OR ATTACHED ADHESIVE BANDAGE MACHINE OPERATOR: No RADIOLOGY DEPARTMENT: General X-ray: Exam(s) Completed: Pelvis X-Ray: Pelvis with Hip Bilateral PERIPHERAL IV DATA: Not applicable SIGNED BY: Vladimir Hooper September 04, 2024 4:02 PM PROGRESS Observed: 09/04/2024 3:36 PM Status: COMPLETED Source: [facility] ID: [id number] Author: MARILEE RIVAS APRN.MATERIAL DAMAGE ADJUSTER Service: ? Author Type: Nurse Practitioner Type: Progress Notes Filed: 09/04/2024 16:32 Note Text: Subjective Patient came in with complaints of bilateral hip and lower back pain. Patient says she normally does have back pain. Patient says the hip pain started about 2 weeks ago after having intercourse with her boyfriend. Patient cannot remember a specific incident that would have caused it but the hip pain started directly after. Patient denies any numbness tingling or loss of feeling. Patient denies any other known injuries. Patient denies any difficulty urinating or having bowel movements. The history is provided by the patient. No planetarium technician was used. Review of Systems Constitutional: Negative. Skin: Negative. Objective Physical Exam Constitutional: Appearance: Normal appearance. Pulmonary: Effort: Pulmonary effort is normal. Musculoskeletal: Legs: Comments: Patient is tender in all the areas marked above. Range of motion is within normal limits. No weakness noted. Neurological: Mental Status: She is alert. PAST MEDICAL HISTORY Diagnosis Date Anxiety and depression History of chicken pox 4yo Steatosis of liver PAST SURGICAL HISTORY Procedure Laterality Date TYMPANOSTOMY LOCAL/TOPICAL ANESTHESIA 09/01 ALLERGIES Aluminum and Augmentin [Amoxicillin-Pot Clavulanate] MEDICATIONS FLUoxetine (PROZAC) 20 mg capsule Take 1 capsule by mouth every afternoon. FLUoxetine (PROZAC) 10 mg capsule Take by mouth. buPROPion SR (ZYBAN SR; WELLBUTRIN SR) 150 mg 12 hr tablet Take by mouth. FAMILY HISTORY Adopted: Yes Problem Relation Age of Onset Hypertension Other maternal side Diabetes Other maternal side Cancer Other maternal side Heart Other maternal side Diabetes Paternal Grandmother Diabetes Paternal Grandfather Social History Tobacco Use Smoking status: Never Passive exposure: Yes Smokeless tobacco: Never Tobacco comments: Only Outside ASSESSMENT/PLAN: 1. Pain - ICD9: 780.96, ICD10: R52 - XR HIP BILATERAL 5V PEL/AP/LAT EACH HIP * * * * Physician Interpretation * * * * EXAM(s): XR HIP JESICA 5V PEL+ AP/LAT EA HIP HISTORY: Indication: Pain bilateral anterior hip pain x 2 weeks. NKI. TECHNIQUE: Images: XR HIP JESICA 5V PEL+ AP/LAT EA HIP Comparison: None. RESULT: Findings: Pelvis: No fractures or dislocations are seen. Bone density appears well preserved. Hip joints appear well-preserved. Sacroiliac joints and pubic symphysis are intact. Bone density appears well-preserved Right hip: No fractures or dislocations are seen. Left hip: No fractures or dislocations are seen. IMPRESSION IMPRESSION: No acute pathology is identified Brain Surgeon: MARKUS Transcribe Date/Time: Sep 04 2024 4:21P Dictated by : JER WHITE DO - PREDNISONE 10 MG TABLET Patient was educated about proper use of medication supportive therapies. Patient will try the medication rest ice give it a week or so and follow-up with primary care. Patient was agreeable to this care plan. Marilee Rivas APRN.CNP CNOV Observed: 09/04/2024 3:30 PM Status: COMPLETED Source: [facility] Office Visit (WSTR) COLEEN CADE ([id number]) 1 F Date Time Provider Department 09/04/24 3:30 PM MARILEE RIVAS [facility] During your visit today, we recorded the following information about you: Temperature Pulse Respiration Blood pressure 97.9 degrees 72/minute 18/minute 110/78 Weight 94.5 kg Marilee Rivas APRN.MATERIAL DAMAGE ADJUSTER 09/04/2024 4:32 PM Signed Subjective Patient came in with complaints of bilateral hip and lower back pain. Patient says she normally does have back pain. Patient says the hip pain started about 2 weeks ago after having intercourse with her boyfriend. Patient cannot remember a specific incident that would have caused it but the hip pain started directly after. Patient denies any numbness tingling or loss of feeling. Patient denies any other known injuries. Patient denies any difficulty urinating or having bowel movements. The history is provided by the patient. No planetarium technician was used. Review of Systems Constitutional: Negative. Skin: Negative. Objective Physical Exam Constitutional: Appearance: Normal appearance. Pulmonary: Effort: Pulmonary effort is normal. Musculoskeletal: Legs: Comments: Patient is tender in all the areas marked above. Range of motion is within normal limits. No weakness noted. Neurological: Mental Status: She is alert. PAST MEDICAL HISTORY Diagnosis Date Anxiety and depression History of chicken pox 4yo Steatosis of liver PAST SURGICAL HISTORY Procedure Laterality Date TYMPANOSTOMY LOCAL/TOPICAL ANESTHESIA 09/01 ALLERGIES Aluminum and Augmentin [Amoxicillin-Pot Clavulanate] MEDICATIONS FLUoxetine (PROZAC) 20 mg capsule Take 1 capsule by mouth every afternoon. FLUoxetine (PROZAC) 10 mg capsule Take by mouth. buPROPion SR (ZYBAN SR; WELLBUTRIN SR) 150 mg 12 hr tablet Take by mouth. FAMILY HISTORY Adopted: Yes Problem Relation Age of Onset Hypertension Other maternal side Diabetes Other maternal side Cancer Other maternal side Heart Other maternal side Diabetes Paternal Grandmother Diabetes Paternal Grandfather Social History Tobacco Use Smoking status: Never Passive exposure: Yes Smokeless tobacco: Never Tobacco comments: Only Outside ASSESSMENT/PLAN: 1. Pain - ICD9: 780.96, ICD10: R52 - XR HIP BILATERAL 5V PEL/AP/LAT EACH HIP * * * * Physician Interpretation * * * * EXAM(s): XR HIP JESICA 5V PEL+ AP/LAT EA HIP HISTORY: Indication: Pain bilateral anterior hip pain x 2 weeks. NKI. TECHNIQUE: Images: XR HIP JESICA 5V PEL+ AP/LAT EA HIP Comparison: None. RESULT: Findings: Pelvis: No fractures or dislocations are seen. Bone density appears well preserved. Hip joints appear well-preserved. Sacroiliac joints and pubic symphysis are intact. Bone density appears well-preserved Right hip: No fractures or dislocations are seen. Left hip: No fractures or dislocations are seen. IMPRESSION IMPRESSION: No acute pathology is identified Brain Surgeon: MARKUS Transcribe Date/Time: Sep 04 2024 4:21P Dictated by : JER LARRICK, DO - PREDNISONE 10 MG TABLET Patient was educated about proper use of medication supportive therapies. Patient will try the medication rest ice give it a week or so and follow-up with primary care. Patient was agreeable to this care plan. Marilee Rivas APRN.MATERIAL DAMAGE ADJUSTER Allergies As of Date: 09/04/2024 Noted Allergy Reaction ALUMINUM 10/31/2013 2 - Rash AUGMENTIN (AMOXICILLIN-POT CLAVUL*03/11/2006 11 - Vomiting Date Reviewed: 07/14/2024 Reviewed by: Jacki Sharp MA - Fully Assessed Reason for Visit: bilateral hip pain [Other] Cmt: X 3 weeks-cannot recall an injury Primary Visit Diagnosis:Pain [R52] Order(s):XR HIP BILATERAL 5V PEL/AP/LAT EACH HIP [[id number]] Order #: [id number] FUTURE predniSONE (DELTASONE) 10 mg tabletTake 4 tabs daily for 3 days, then 2 tabs daily for 3 days, then 1 tab daily for 3 days with food.Disp: 21 tabletRfl: 0 Prescriptions as of 09/04/2024 - predniSONE (DELTASONE) 10 mg tablet Take 4 tabs daily for 3 days, then 2 tabs daily for 3 days, then 1 tab daily for 3 days with food. - FLUoxetine (PROZAC) 20 mg capsule Take 1 capsule by mouth every afternoon. - FLUoxetine (PROZAC) 10 mg capsule Take by mouth. - buPROPion SR (ZYBAN SR; WELLBUTRIN SR) 150 mg 12 hr tablet Take by mouth. 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 Encounter Status:Closed by MARILEE RIVAS on 09/04/24 CNPN Observed: 07/15/2024 12:00 AM Status: COMPLETED Source: [facility] Telephone (UCWSTR) COLEEN CADE ([id number]) 1 F Date Time Provider Department 07/15/24 JOSE DAVID BERUMEN [facility] During your visit today, we recorded the following information about you: Robbin Chowdhury MA 07/15/2024 12:12 PM Signed ----- Message from Jose David Berumen MD sent at 07/15/2024 10:53 AM EST ----- Urine culture did not look like a clean sample, so it did not show a clear infection. Follow up with PCP, urology, or IMPORTER OR EXPORTER if symptoms persist. Robbin Chowdhury MA 07/15/2024 12:13 PM Signed Patient given results and verbalized understanding of instructions given. Robbin Chowdhury MA Allergies As of Date: 07/15/2024 Noted Allergy Reaction ALUMINUM 10/31/2013 2 - Rash AUGMENTIN (AMOXICILLIN-POT CLAVUL*03/11/2006 11 - Vomiting Date Reviewed: 07/14/2024 Reviewed by: Jacki Sharp MA - Fully Assessed Reason for Visit: Results [95] Prescriptions as of 07/15/2024 - FLUoxetine (PROZAC) 20 mg capsule Take 1 capsule by mouth every afternoon. - FLUoxetine (PROZAC) 10 mg capsule Take by mouth. - buPROPion SR (ZYBAN SR; WELLBUTRIN SR) 150 mg 12 hr tablet Take by mouth. 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 Ruptured ovarian cyst [N83.209] 02/28/2014 05/20/2014 Concussion without loss of consciousness [S06.0*09/08/2015 Encounter Status:Closed by ROBBIN CHOWDHURY on 07/15/24 BACTERIA UR CULT Observed: 07/14/2024 3:22 PM Status: F Source: [facility] ORGANISM ID: 1 10,000 -<50,000 CFU/ml Normal urogenital giovanna Performed By: #### [id number] ### # [facility] CLIA [id number] [address] [place] [address] OF [facility] PROGRESS Observed: 07/14/2024 2:00 PM Status: COMPLETED Source: [facility] HNO ID: [id number] Author: BELIA MARIE APRN.CNP Service: ? Author Type: Nurse Practitioner Type: Progress Notes Filed: 07/14/2024 14:24 Note Text: This note was created using [employer]. Subjective Coleen Cade is a 24 year old female. HPI some stomach pain, right lower back pain,, increase in frequency. Denies any dysuria or urgency. Review of Systems Genitourinary: Positive for frequency. Musculoskeletal: Positive for back pain. Objective BP 112/76 Pulse 106 Temp 37.1 ?C (98.8 ?F) Resp 20 Wt 96 kg (211 lb 10.3 oz) LMP 06/21/2024 (Exact Date) SpO2 98% Physical Exam Pulmonary: Effort: Pulmonary effort is normal. Abdominal: Palpations: Abdomen is soft. Skin: General: Skin is warm. Neurological: Mental Status: She is alert. Assessment and Plan ASSESSMENT/PLAN: 1. Urinary frequency - ICD9: 788.41, ICD10: R35.0 acute - Send urine for culture - Patient education for prevention given - UA DIP, URINE (POC) - BACTERIAL CULTURE, URINE- Will notify patient of test results. - POC test- negative Belia Marie APRN.CNP Medical Decision Making: Problems: Low: Acute, uncomplicated illness or injury Data: Unique test(s) ordered: 2 Risk: Low: Low risk from testing/treatment Medical Decision Making Level: 3 - Low CNOV Observed: 07/14/2024 1:45 PM Status: COMPLETED Source: [facility] Office Visit (WSTR) COLEEN CADE ([id number]) 1 F Date Time Provider Department 07/14/24 1:45 PM BELIA MARIE [facility] During your visit today, we recorded the following information about you: Temperature Pulse Respiration Blood pressure 98.8 degrees 106/minute 20/minute 112/76 Weight Last Period 96 kg 06/21/24 Belia Marie APRN.CNP 07/14/2024 2:24 PM Signed This note was created using [employer]. Subjective Coleen Cade is a 24 year old female. HPI some stomach pain, right lower back pain,, increase in frequency. Denies any dysuria or urgency. Review of Systems Genitourinary: Positive for frequency. Musculoskeletal: Positive for back pain. Objective BP 112/76 Pulse 106 Temp 37.1 ?C (98.8 ?F) Resp 20 Wt 96 kg (211 lb 10.3 oz) LMP 06/21/2024 (Exact Date) SpO2 98% Physical Exam Pulmonary: Effort: Pulmonary effort is normal. Abdominal: Palpations: Abdomen is soft. Skin: General: Skin is warm. Neurological: Mental Status: She is alert. Assessment and Plan ASSESSMENT/PLAN: 1. Urinary frequency - ICD9: 788.41, ICD10: R35.0 acute - Send urine for culture - Patient education for prevention given - UA DIP, URINE (POC) - BACTERIAL CULTURE, URINE- Will notify patient of test results. - POC test- negative Belia Marie APRN.CNP Medical Decision Making: Problems: Low: Acute, uncomplicated illness or injury Data: Unique test(s) ordered: 2 Risk: Low: Low risk from testing/treatment Medical Decision Making Level: 3 - Low Referring Provider: SELF [200] Allergies As of Date: 07/14/2024 Noted Allergy Reaction ALUMINUM 10/31/2013 2 - Rash AUGMENTIN (AMOXICILLIN-POT CLAVUL*03/11/2006 11 - Vomiting Date Reviewed: 07/14/2024 Reviewed by: Jacki Sharp MA - Fully Assessed Reason for Visit: Urinary Problem [252] Cmt: Frequency, lower back pain, lower abdominal pain x 3 days Primary Visit Diagnosis:Urinary frequency [R35.0] Order(s):UA DIP, URINE (POC) [[id number]] Order #: [id number]. #:[id number] BACTERIAL CULTURE, URINE [SQURCUL] Order #: [id number]. #:[id number] UA DIP,URINE HCG (POC) [[id number]] Order #: [id number]. #:[id number] Prescriptions as of 07/14/2024 - FLUoxetine (PROZAC) 20 mg capsule Take 1 capsule by mouth every afternoon. - FLUoxetine (PROZAC) 10 mg capsule Take by mouth. - buPROPion SR (ZYBAN SR; WELLBUTRIN SR) 150 mg 12 hr tablet Take by mouth. 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 Ruptured ovarian cyst [N83.209] 02/28/2014 05/20/2014 Concussion without loss of consciousness [S06.0*09/08/2015 Encounter Status:Closed by BELIA MARIE on 07/14/24 COVID AND INFLUENZA A/B AND RSV PCR, ROUTINE Observed: 06/23/2024 2:52 PM Status: F Source: [facility] SARS-COV-2 (AGENT OF COVID-1 9) RNA: Not detectedINFLUENZA A RNA: Not detectedINFLUENZA B RNA: Not detectedRESPIRATORY SYNCYTIAL VIRUS (RSV) RNA: Not detected Performed By: #### CVFLRS ## ## [facility] CLIA [id number] [address] [place] [address] [place] PROGRESS Observed: 06/23/2024 1:16 PM Status: COMPLETED Source: [facility] HNO ID: [id number] Author: MEGAN EM APRN.MATERIAL DAMAGE ADJUSTER Service: ? Author Type: Nurse Practitioner Type: Progress Notes Filed: 06/23/2024 13:18 Note Text: Subjective HPI Nontoxic-appearing female presents urgent care chief complaint COVID-19 concerns. Duration of symptoms 1 day. Associated symptoms headache cough fatigue. States mother test positive for COVID-19. She was in close contact. Denies any chest pain shortness of breath or pleuritic pain. No hemoptysis. Denies chance of . Past medical history prescription medications allergies reviewed. .Patient presents with: Covid19 Concern: + exposure, cough, MAZA x last night PAST MEDICAL HISTORY Diagnosis Date Anxiety and depression History of chicken pox 4yo Steatosis of liver PAST SURGICAL HISTORY Procedure Laterality Date TYMPANOSTOMY LOCAL/TOPICAL ANESTHESIA 09/01 ALLERGIES Aluminum and Augmentin [Amoxicillin-Pot Clavulanate] MEDICATIONS FLUoxetine (PROZAC) 10 mg capsule Take by mouth. buPROPion SR (ZYBAN SR; WELLBUTRIN SR) 150 mg 12 hr tablet Take by mouth. FAMILY HISTORY Adopted: Yes Problem Relation Age of Onset Hypertension Other maternal side Diabetes Other maternal side Cancer Other maternal side Heart Other maternal side Diabetes Paternal Grandmother Diabetes Paternal Grandfather Social History Tobacco Use Smoking status: Never Passive exposure: Yes Smokeless tobacco: Never Tobacco comments: Only Outside BP 119/85 Pulse 110 Temp 36.6 ?C (97.9 ?F) Resp 18 Wt 94.2 kg (207 lb 10.8 oz) LMP 05/26/2024 (Exact Date) SpO2 100% Review of Systems Constitutional: Positive for malaise/fatigue. Negative for chills and fever. HENT: Negative for congestion, ear discharge, ear pain, sinus pain and sore throat. Eyes: Negative for blurred vision, pain, discharge and redness. Respiratory: Positive for cough. Negative for hemoptysis, sputum production, shortness of breath, wheezing and stridor. Cardiovascular: Negative for chest pain. Gastrointestinal: Negative for abdominal pain, diarrhea, nausea and vomiting. Musculoskeletal: Positive for myalgias. Skin: Negative for itching and rash. Neurological: Positive for headaches. Negative for dizziness. Objective Physical Exam Constitutional: General: She is not in acute distress. Appearance: She is not diaphoretic. HENT: Head: Normocephalic. Jaw: No trismus, tenderness, swelling or pain on movement. Nose: Congestion present. Mouth/Throat: Mouth: Mucous membranes are moist. Pharynx: Oropharynx is clear. Uvula midline. No pharyngeal swelling, oropharyngeal exudate, posterior oropharyngeal erythema or uvula swelling. Eyes: Conjunctiva/sclera: Conjunctivae normal. Pupils: Pupils are equal, round, and reactive to light. Cardiovascular: Rate and Rhythm: Normal rate and regular rhythm. Heart sounds: Normal heart sounds. Pulmonary: Effort: Pulmonary effort is normal. No tachypnea, accessory muscle usage or respiratory distress. Breath sounds: Normal breath sounds. No stridor. No wheezing, rhonchi or rales. Abdominal: General: There is no distension. Palpations: Abdomen is soft. Tenderness: There is no abdominal tenderness. There is no guarding or rebound. Musculoskeletal: Cervical back: Normal range of motion and neck supple. No edema, erythema, rigidity or tenderness. No pain with movement. Normal range of motion. Lymphadenopathy: Cervical: No cervical adenopathy. Skin: General: Skin is warm and dry. Neurological: Mental Status: She is alert and oriented to person, place, and time. ASSESSMENT/PLAN: 1. Viral illness - ICD9: 079.99, ICD10: B34.9 - Discussed viral etiology and rationale for treatment. - Symptomatic treatment with prn analgesia - Supportive care with fluids and rest - COVID AND INFLUENZA A/B AND RSV PCR, ROUTINE Patient was educated on supportive therapies. Patient will follow up with primary care provider as needed. Patient was instructed to immediately proceed to emergency room for any new, worsening, or symptoms lasting longer than anticipated. The patient's clinical presentation is otherwise unremarkable at this time. Based on exam and clinical finding, the patient is stable for discharge. Plan of care was discussed with patient. Patient verbalizes understanding and agrees to plan of care. This note was generated using [employer] software. It may contain errors in wording, punctuation, or spelling. Megan Em APRN.SURJIT CNKEENAN Observed: 06/23/2024 12:45 PM Status: COMPLETED Source: [facility] Office Visit ([facility]) COLEEN CADE ([id number]) 1 F Date Time Provider Department 06/23/24 12:45 PM MEGAN EM [facility] During your visit today, we recorded the following information about you: Temperature Pulse Respiration Blood pressure 97.9 degrees 110/minute 18/minute 119/85 Weight 94.2 kg Megan Em APRN.[facility] 06/23/2024 1:11 PM Signed How to Manage Common Symptoms Associated with COVID for Adults Fever- Fever is a temperature over 100.4 F and can occur when the body is fighting an infection. To help treat a fever: Drink plenty of fluids and stay well hydrated. Eat small amounts of easy to digest food. Rest. Your body needs rest to recover, but getting up and moving around the house frequently is a good idea. You should try to continue doing your normal daily activities (bathing, toileting, grooming, cooking), though you will probably feel tired, and need to rest often. Avoid any heavy activity or exercise, as this will increase your body temperature. Dress in light clothing and stay covered in a light sheet. Keep the room temperature cool. Take a slightly warm (not cold or cool) bath, or apply damp washcloths to the forehead and wrists. Cough- Cough is a common symptom associated with COVID and can be bothersome. To help treat a cough: Stay well hydrated. Try warm water or tea with lemon and/or honey to help soothe the cough. Use a humidifier to add moisture to the air. Try a product with menthol, like a cough drop or a rub for your chest such as Vicks, which can help reduce cough. Try cough drops. Avoid smoking and other strong odors or perfumes. Try breathing exercises to keep your lungs open and clear. Take a big deep breath through your nose and hold for 5 seconds before slowly releasing. Repeat frequently, while you are awake. Congestion- Runny nose or nasal congestion can occur with COVID. Treatment can help relieve symptoms: Try OTC nasal saline spray, or nasal saline rinse to relieve mucus congestion. Nasal strips can help keep nasal passages open, to increase airflow. Elevating your head with an extra pillow in bed can help reduce congestion. Using a humidifier can increase moisture in the air, and make breathing easier. Sore Throat- Another common symptom with COVID, can be managed at home by: Stay well hydrated. Gargle with salt water - mix ? teaspoon salt with 1 cup of warm water and gargle. This helps to loosen mucus in the back of the throat and may reduce discomfort. Try ice chips, popsicles or lozenges to soothe the throat. Nausea/Vomiting/Diarrhea- These are common symptoms, and staying hydrated is most important. If you are nauseous or vomiting, start with small sips of water every 10-15 minutes and increase as tolerated. You can try sucking an ice cube too. If tolerating, you can try pedialyte or Gatorade, or flat sprite or linsey-angelito. Start slowly and increase as you are able to. Instead of meals, try smaller, more frequent snacks. Try eating bland foods like crackers, toast, rice, and applesauce. Avoid spicy, greasy or fried foods and dairy containing foods. Even if you aren't feeling hungry due to lack of smell or taste, it is important to try to take in some food when you are able. After drinking and eating, rest in an upright position for up to two hours as needed to help decrease nauseous feelings. Try closing your eyes, avoid moving and watching TV. Avoid strong odors that can make you feel more nauseated. When to seek emergency medical attention Look for emergency warning signs for COVID-19. If having any of these symptoms, seek emergency medical care immediately: Trouble breathing Persistent pain or pressure in the chest New confusion Inability to wake or stay awake Bluish lips or face *This list is not all possible symptoms. Please call your medical provider for any other symptoms that are severe or concerning to you. Megan Em APRN.MATERIAL DAMAGE ADJUSTER 06/23/2024 1:18 PM Signed Subjective HPI Nontoxic-appearing female presents urgent care chief complaint COVID-19 concerns. Duration of symptoms 1 day. Associated symptoms headache cough fatigue. States mother test positive for COVID-19. She was in close contact. Denies any chest pain shortness of breath or pleuritic pain. No hemoptysis. Denies chance of . Past medical history prescription medications allergies reviewed. .Patient presents with: Covid19 Concern: + exposure, cough, MAZA x last night PAST MEDICAL HISTORY Diagnosis Date Anxiety and depression History of chicken pox 4yo Steatosis of liver PAST SURGICAL HISTORY Procedure Laterality Date TYMPANOSTOMY LOCAL/TOPICAL ANESTHESIA 09/01 ALLERGIES Aluminum and Augmentin [Amoxicillin-Pot Clavulanate] MEDICATIONS FLUoxetine (PROZAC) 10 mg capsule Take by mouth. buPROPion SR (ZYBAN SR; WELLBUTRIN SR) 150 mg 12 hr tablet Take by mouth. FAMILY HISTORY Adopted: Yes Problem Relation Age of Onset Hypertension Other maternal side Diabetes Other maternal side Cancer Other maternal side Heart Other maternal side Diabetes Paternal Grandmother Diabetes Paternal Grandfather Social History Tobacco Use Smoking status: Never Passive exposure: Yes Smokeless tobacco: Never Tobacco comments: Only Outside BP 119/85 Pulse 110 Temp 36.6 ?C (97.9 ?F) Resp 18 Wt 94.2 kg (207 lb 10.8 oz) LMP 05/26/2024 (Exact Date) SpO2 100% Review of Systems Constitutional: Positive for malaise/fatigue. Negative for chills and fever. HENT: Negative for congestion, ear discharge, ear pain, sinus pain and sore throat. Eyes: Negative for blurred vision, pain, discharge and redness. Respiratory: Positive for cough. Negative for hemoptysis, sputum production, shortness of breath, wheezing and stridor. Cardiovascular: Negative for chest pain. Gastrointestinal: Negative for abdominal pain, diarrhea, nausea and vomiting. Musculoskeletal: Positive for myalgias. Skin: Negative for itching and rash. Neurological: Positive for headaches. Negative for dizziness. Objective Physical Exam Constitutional: General: She is not in acute distress. Appearance: She is not diaphoretic. HENT: Head: Normocephalic. Jaw: No trismus, tenderness, swelling or pain on movement. Nose: Congestion present. Mouth/Throat: Mouth: Mucous membranes are moist. Pharynx: Oropharynx is clear. Uvula midline. No pharyngeal swelling, oropharyngeal exudate, posterior oropharyngeal erythema or uvula swelling. Eyes: Conjunctiva/sclera: Conjunctivae normal. Pupils: Pupils are equal, round, and reactive to light. Cardiovascular: Rate and Rhythm: Normal rate and regular rhythm. Heart sounds: Normal heart sounds. Pulmonary: Effort: Pulmonary effort is normal. No tachypnea, accessory muscle usage or respiratory distress. Breath sounds: Normal breath sounds. No stridor. No wheezing, rhonchi or rales. Abdominal: General: There is no distension. Palpations: Abdomen is soft. Tenderness: There is no abdominal tenderness. There is no guarding or rebound. Musculoskeletal: Cervical back: Normal range of motion and neck supple. No edema, erythema, rigidity or tenderness. No pain with movement. Normal range of motion. Lymphadenopathy: Cervical: No cervical adenopathy. Skin: General: Skin is warm and dry. Neurological: Mental Status: She is alert and oriented to person, place, and time. ASSESSMENT/PLAN: 1. Viral illness - ICD9: 079.99, ICD10: B34.9 - Discussed viral etiology and rationale for treatment. - Symptomatic treatment with prn analgesia - Supportive care with fluids and rest - COVID AND INFLUENZA A/B AND RSV PCR, ROUTINE Patient was educated on supportive therapies. Patient will follow up with primary care provider as needed. Patient was instructed to immediately proceed to emergency room for any new, worsening, or symptoms lasting longer than anticipated. The patient's clinical presentation is otherwise unremarkable at this time. Based on exam and clinical finding, the patient is stable for discharge. Plan of care was discussed with patient. Patient verbalizes understanding and agrees to plan of care. This note was generated using Affle software. It may contain errors in wording, punctuation, or spelling. Megan Em APRN.MATERIAL DAMAGE ADJUSTER Allergies As of Date: 06/23/2024 Noted Allergy Reaction ALUMINUM 10/31/2013 2 - Rash AUGMENTIN (AMOXICILLIN-POT CLAVUL*03/11/2006 11 - Vomiting Date Reviewed: 06/23/2024 Reviewed by: Roselyn Lawrence MA - Fully Assessed Reason for Visit: Covid19 Concern [4111] Cmt: + exposure, cough, MAZA x last night Primary Visit Diagnosis:Viral illness [B34.9] Order(s):COVID AND INFLUENZA A/B AND RSV PCR, ROUTINE [SQCVFLRS] Order #: [id number]. #:[id number] Prescriptions as of 06/23/2024 - FLUoxetine (PROZAC) 10 mg capsule Take by mouth. - buPROPion SR (ZYBAN SR; WELLBUTRIN SR) 150 mg 12 hr tablet Take by mouth. 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 To help treat a fever: Drink plenty of fluids and stay well hydrated. Eat small amounts of easy to digest food. Rest. Your body needs rest to recover, but getting up and moving around the house frequently is a good idea. You should try to continue doing your normal daily activities (bathing, toileting, grooming, cooking), though you will probably feel tired, and need to rest often. Avoid any heavy activity or exercise, as this will increase your body temperature. Dress in light clothing and stay covered in a light sheet. Keep the room temperature cool. Take a slightly warm (not cold or cool) bath, or apply damp washcloths to the forehead and wrists. Cough- Cough is a common symptom associated with COVID and can be bothersome. To help treat a cough: Stay well hydrated. Try warm water or tea with lemon and/or honey to help soothe the cough. Use a humidifier to add moisture to the air. Try a product with menthol, like a cough drop or a rub for your chest such as Vicks, which can help reduce cough. Try cough drops. Avoid smoking and other strong odors or perfumes. Try breathing exercises to keep your lungs open and clear. Take a big deep breath through your nose and hold for 5 seconds before slowly releasing. Repeat frequently, while you are awake. Congestion- Runny nose or nasal congestion can occur with COVID. Treatment can help relieve symptoms: Try OTC nasal saline spray, or nasal saline rinse to relieve mucus congestion. Nasal strips can help keep nasal passages open, to increase airflow. Elevating your head with an extra pillow in bed can help reduce congestion. Using a humidifier can increase moisture in the air, and make breathing easier. Sore Throat- Another common symptom with COVID, can be managed at home by: Stay well hydrated. Gargle with salt water - mix ? teaspoon salt with 1 cup of warm water and gargle. This helps to loosen mucus in the back of the throat and may reduce discomfort. Try ice chips, popsicles or lozenges to soothe the throat. Nausea/Vomiting/Diarrhea- These are common symptoms, and staying hydrated is most important. If you are nauseous or vomiting, start with small sips of water every 10-15 minutes and increase as tolerated. You can try sucking an ice cube too. If tolerating, you can try pedialyte or Gatorade, or flat sprite or linsey-angelito. Start slowly and increase as you are able to. Instead of meals, try smaller, more frequent snacks. Try eating bland foods like crackers, toast, rice, and applesauce. Avoid spicy, greasy or fried foods and dairy containing foods. Even if you aren't feeling hungry due to lack of smell or taste, it is important to try to take in some food when you are able. After drinking and eating, rest in an upright position for up to two hours as needed to help decrease nauseous feelings. Try closing your eyes, avoid moving and watching TV. Avoid strong odors that can make you feel more nauseated. When to seek emergency medical attention Look for emergency warning signs for COVID-19. If having any of these symptoms, seek emergency medical care immediately: Trouble breathing Persistent pain or pressure in the chest New confusion Inability to wake or stay awake Bluish lips or face *This list is not all possible symptoms. Please call your medical provider for any other symptoms that are severe or concerning to you. Level of Service: OFFICE/OUTPATIENT ESTABLISHED LOW [facility] 20 MIN [[id number]] Letter Text Encounter Status:Closed by MEGAN EM on 06/23/24 PROGRESS Observed: 06/08/2024 9:24 AM Status: COMPLETED Source: [facility] HNO ID: [id number] Author: ELANA MERCADO APRN.SURJIT Service: ? Author Type: Nurse Practitioner Type: Progress Notes Filed: 06/08/2024 09:31 Note Text: This note was created using [employer]. Faiza Cade is a 23 year old female. HPI Patient was at a friend's apartment yesterday with a strong ammonia smell and cats and began to notice nasal congestion and a sore throat. She does not have a specific allergy to cats as she does have cats at her home but she notes that the odor at this place was much stronger than what she was used to. Review of Systems Constitutional: Negative for fever. HENT: Positive for congestion and sore throat. Respiratory: Negative for cough. Neurological: Positive for headaches. Objective BP 107/75 Pulse 120 Temp 36.6 ?C (97.9 ?F) (Left Tympanic) Resp 16 Wt 93.3 kg (205 lb 11 oz) LMP 05/26/2024 (Exact Date) SpO2 98% Physical Exam Vitals and nursing note reviewed. Constitutional: General: She is not in acute distress. Appearance: Normal appearance. She is not ill-appearing. HENT: Head: Normocephalic. Right Ear: Tympanic membrane normal. Left Ear: Tympanic membrane normal. Mouth/Throat: Mouth: Mucous membranes are moist. Pharynx: No oropharyngeal exudate or posterior oropharyngeal erythema. Eyes: Conjunctiva/sclera: Conjunctivae normal. Cardiovascular: Rate and Rhythm: Normal rate and regular rhythm. Pulmonary: Effort: Pulmonary effort is normal. Breath sounds: Normal breath sounds. Musculoskeletal: General: Normal range of motion. Cervical back: Normal range of motion. Skin: General: Skin is warm and dry. Neurological: General: No focal deficit present. Mental Status: She is alert. Psychiatric: Mood and Affect: Mood normal. Behavior: Behavior normal. Assessment and Plan ASSESSMENT/PLAN: 1. Sore throat - ICD9: 462, ICD10: J02.9 -I discussed with patient that symptoms could either be viral or environmental in origin. Patient will use [id number] Flonase and Claritin for symptomatic relief. As symptoms have only been ongoing for 1 day I do not feel that antibiotics are necessary at this time. Patient declined viral testing. Elana Mercado APRN.SURJIT CNOV Observed: 06/08/2024 9:15 AM Status: COMPLETED Source: [facility] COLEEN CADE ([id number]) 1 F Date Time Provider Department 06/08/24 9:15 AM ELANA MERCADO [facility] During your visit today, we recorded the following information about you: Temperature Pulse Respiration Blood pressure 97.9 degrees 120/minute 16/minute 107/75 Weight Last Period 93.3 kg 05/26/24 Elana Mercado, [employer] ARCHITECT.MATERIAL DAMAGE ADJUSTER 06/08/2024 9:31 AM Signed This note was created using [employer]. Subjective Coleen Cade is a 23 year old female. HPI Patient was at a friend's apartment yesterday with a strong ammonia smell and cats and began to notice nasal congestion and a sore throat. She does not have a specific allergy to cats as she does have cats at her home but she notes that the odor at this place was much stronger than what she was used to. Review of Systems Constitutional: Negative for fever. HENT: Positive for congestion and sore throat. Respiratory: Negative for cough. Neurological: Positive for headaches. Objective BP 107/75 Pulse 120 Temp 36.6 ?C (97.9 ?F) (Left Tympanic) Resp 16 Wt 93.3 kg (205 lb 11 oz) LMP 05/26/2024 (Exact Date) SpO2 98% Physical Exam Vitals and nursing note reviewed. Constitutional: General: She is not in acute distress. Appearance: Normal appearance. She is not ill-appearing. HENT: Head: Normocephalic. Right Ear: Tympanic membrane normal. Left Ear: Tympanic membrane normal. Mouth/Throat: Mouth: Mucous membranes are moist. Pharynx: No oropharyngeal exudate or posterior oropharyngeal erythema. Eyes: Conjunctiva/sclera: Conjunctivae normal. Cardiovascular: Rate and Rhythm: Normal rate and regular rhythm. Pulmonary: Effort: Pulmonary effort is normal. Breath sounds: Normal breath sounds. Musculoskeletal: General: Normal range of motion. Cervical back: Normal range of motion. Skin: General: Skin is warm and dry. Neurological: General: No focal deficit present. Mental Status: She is alert. Psychiatric: Mood and Affect: Mood normal. Behavior: Behavior normal. Assessment and Plan ASSESSMENT/PLAN: 1. Sore throat - ICD9: 462, ICD10: J02.9 -I discussed with patient that symptoms could either be viral or environmental in origin. Patient will use [id number] Flonase and Claritin for symptomatic relief. As symptoms have only been ongoing for 1 day I do not feel that antibiotics are necessary at this time. Patient declined viral testing. Elana Mercado APRN.MATERIAL DAMAGE ADJUSTER Referring Provider: SELF [[id number]] Allergies As of Date: 06/08/2024 Noted Allergy Reaction ALUMINUM 10/31/2013 2 - Rash AUGMENTIN (AMOXICILLIN-POT CLAVUL*03/11/2006 11 - Vomiting Date Reviewed: 06/08/2024 Reviewed by: Elana Mercado APRN.MATERIAL DAMAGE ADJUSTER - Fully Assessed Reason for Visit: Sinusitis [127] Cmt: X1 day Primary Visit Diagnosis:Sore throat [J02.9] Prescriptions as of 06/08/2024 - FLUoxetine (PROZAC) 10 mg capsule Take by mouth. - buPROPion SR (ZYBAN SR; WELLBUTRIN SR) 150 mg 12 hr tablet Take by mouth. 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 Ruptured ovarian cyst [N83.209] 02/28/2014 05/20/2014 Concussion without loss of consciousness [S06.0*09/08/2015 Letter Text Encounter Status:Closed by ELANA MERCADO on 06/08/24 CNPN Observed: 04/27/2024 12:00 AM Status: COMPLETED Source: [facility] COLEEN CADE ([id number]) 1 F Date Time Provider Department 04/27/24 ANETTE ELDER [facility] During your visit today, we recorded the following information about you: Anette Elder PA 04/27/2024 8:16 AM Signed Please let patient know she is negative for BV, yeast, trichomonas. Lucille Huerta MA 04/27/2024 8:22 AM Signed Patient active MyChart. Patient notified via MyChart message. Lucille Huerta MA Allergies As of Date: 04/27/2024 Noted Allergy Reaction ALUMINUM 10/31/2013 2 - Rash AUGMENTIN (AMOXICILLIN-POT CLAVUL*03/11/2006 11 - Vomiting Date Reviewed: 04/26/2024 Reviewed by: Skye Weeks LPN - Fully Assessed Reason for Visit: Results [95] Prescriptions as of 04/27/2024 - FLUoxetine (PROZAC) 10 mg capsule Take by mouth. - buPROPion SR (ZYBAN SR; WELLBUTRIN SR) 150 mg 12 hr tablet Take by mouth. 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 Ruptured ovarian cyst [N83.209] 02/28/2014 05/20/2014 Concussion without loss of consciousness [S06.0*09/08/2015 Encounter Status:Closed by LUCILLE HUERTA on 04/27/24 MARLEEN/TRICHOMONAS NAAT Collected: 2:11 PM Status: F Source: [facility] Order Comment: Specimen Type : SWAB Ordering Facility: [facility] Address: [address] [place] [address] TYPE CODE TESTS RESULT OUT OF RANGE REFERENCE UNITS LAB 99511-1(LOIN C) Marleen DNA Vag Ql LIZZY+probe Negative for Marleen species Negative for Marleen species LAB 68363-1(LOIN C) C glabrata RNA Vag Ql LIZZY+probe Negative for Marleen glabrata Negative for Marleen glabrata LAB 93319-7(LOIN C) T vaginalis DNA Spec Ql LIZZY+probe Negative for Trichomonas vaginalis by amplification Negative for Trichomonas vaginalis by amplification Performed By: #### CVTV #### [facility] CLIA [id number] [address] [place] [address] [place] BACTERIAL VAGINOSIS NAAT Collected: 2:11 PM Status: F Source: [facility] Order Comment: Specimen Type : SWAB Ordering Facility: [facility] Address: [address] [place] [address] TYPE CODE TESTS RESULT OUT OF RANGE REFERENCE UNITS LAB 58925-0(LOINC) BV bacteria rRNA Vag Ql LIZZY+probe Negative for bacterial vaginosis Negative for bacterial vaginosis Performed By: #### BVAMP, 36 902-5 #### [facility] CLIA [id number] [address] [place] [address] [place] C TRACH+GC DNA SPEC QL LIZZY+PROBE Collected: 04/26/2024 2:11 PM Status: F Source: [facility] Comment: Specimen Type : SWAB Ordering Facility: [facility] Address: [address] [place] [address] TYPE CODE TESTS RESULT OUT OF RANGE REFERENCE UNITS LAB 89442-2(LOINC ) N gonorrhoea rRNA Spec Ql LIZZY+probe Negative for Neisseria gonorrhoeae by amplification Negative for Neisseria gonorrhoeae by amplification LAB 83834-4(LOINC ) C trach rRNA Spec Ql LIZZY+probe Negative for Chlamydia trachomatis by amplification Negative for Chlamydia trachomatis by amplificaton Performed By: #### BVAMP, 36 902-5 #### [facility] CLIA [id number] [address] [place] [address] [place] PROGRESS Observed: 04/26/2024 1:39 PM Status: COMPLETED Source: [facility] HNO ID: [id number] Author: JOSE DAVID BERUMEN MD Service: ? Author Type: Physician Type: Progress Notes Filed: 04/26/2024 14:06 Note Text: Patient presents with: Abdominal Pain: Middle and lower cramping, nausea, loose stools (soft), some constipation,missed period, breast tenderness, un protected sex 04/17 HPI: Symptoms since yesterday. Dysuria: No Frequency: No Hematuria: No Discharge: some clear Nausea: Yes, today. Breasts also feel tender. Had unprotected intercourse 04/17. Missed menstrual cycle 04/10 and this month. Not on control for 1 year. Fever or chills: No Back pain: No Abdominal pain: yes, bloating and cramping. Has soft stools alternating with hard stools. Prior UTI: reports past history without urinary symptoms. Treatment: She does not like to take medicine unless necessary. MEDICATIONS: Current Outpatient Medications Medication Sig FLUoxetine (PROZAC) 10 mg capsule Take by mouth. buPROPion SR (ZYBAN SR; WELLBUTRIN SR) 150 mg 12 hr tablet Take by mouth. No current facility-administered medications for this visit. ALLERGIES: ALLERGIES Allergen Reactions Aluminum Rash Augmentin [Amoxicil* Vomiting VITALS: BP 124/87 Pulse 95 Temp 36.9 ?C (98.5 ?F) Resp 18 Wt 93.9 kg (207 lb 0.2 oz) LMP 03/12/2024 (Exact Date) SpO2 100% PHYSICAL EXAM: GEN: NAD HEENT: EOMI, conjunctiva clear, HEART: regular rate and rhythm, no murmurs LUNGS: clear to auscultation, no wheezes or crackles, no increased WOB ABDOMEN: Soft, nondistended, no masses, right upper and left lower tenderness BACK: No CVA tenderness ASSESSMENT/PLAN: 1. Missed menses - ICD9: 626.4, ICD10: N92.6 (primary diagnosis) - HCG QUAL UR B/O - negative 2. Abdominal cramping - ICD9: 789.00, ICD10: R10.9 - UA DIP, URINE (POC) - negative Continue supportive care. 3. Vaginal discharge - ICD9: 623.5, ICD10: N89.8 She will view results in [facility]; will be notified if treatment is needed. - GONORRHEA/CHLAMYDIA NAAT - MARLEEN/TRICHOMONAS NAAT - BACTERIAL VAGINOSIS NAAT Jose David Berumen MD CNOV Observed: 04/26/2024 1:30 PM Status: COMPLETED Source: [facility] Office Visit (WSTR) COLEEN CADE ([id number]) 1 F Date Time Provider Department 04/26/24 1:30 PM JOSE DAVID BERUMEN [facility] During your visit today, we recorded the following information about you: Temperature Pulse Respiration Blood pressure 98.5 degrees 95/minute 18/minute 124/87 Weight Last Period 93.9 kg 03/12/24 Jose David Berumen MD 04/26/2024 2:06 PM Signed Patient presents with: Abdominal Pain: Middle and lower cramping, nausea, loose stools (soft), some constipation,missed period, breast tenderness, un protected sex 04/17 HPI: Symptoms since yesterday. Dysuria: No Frequency: No Hematuria: No Discharge: some clear Nausea: Yes, today. Breasts also feel tender. Had unprotected intercourse 04/17. Missed menstrual cycle 04/10 and this month. Not on control for 1 year. Fever or chills: No Back pain: No Abdominal pain: yes, bloating and cramping. Has soft stools alternating with hard stools. Prior UTI: reports past history without urinary symptoms. Treatment: She does not like to take medicine unless necessary. MEDICATIONS: Current Outpatient Medications Medication Sig FLUoxetine (PROZAC) 10 mg capsule Take by mouth. buPROPion SR (ZYBAN SR; WELLBUTRIN SR) 150 mg 12 hr tablet Take by mouth. No current facility-administered medications for this visit. ALLERGIES: ALLERGIES Allergen Reactions Aluminum Rash Augmentin [Amoxicil* Vomiting VITALS: BP 124/87 Pulse 95 Temp 36.9 ?C (98.5 ?F) Resp 18 Wt 93.9 kg (207 lb 0.2 oz) LMP 03/12/2024 (Exact Date) SpO2 100% PHYSICAL EXAM: GEN: NAD HEENT: EOMI, conjunctiva clear, HEART: regular rate and rhythm, no murmurs LUNGS: clear to auscultation, no wheezes or crackles, no increased WOB ABDOMEN: Soft, nondistended, no masses, right upper and left lower tenderness BACK: No CVA tenderness ASSESSMENT/PLAN: 1. Missed menses - ICD9: 626.4, ICD10: N92.6 (primary diagnosis) - HCG QUAL UR B/O - negative 2. Abdominal cramping - ICD9: 789.00, ICD10: R10.9 - UA DIP, URINE (POC) - negative Continue supportive care. 3. Vaginal discharge - ICD9: 623.5, ICD10: N89.8 She will view results in MyChart; will be notified if treatment is needed. - GONORRHEA/CHLAMYDIA NAAT - MARLEEN/TRICHOMONAS NAAT - BACTERIAL VAGINOSIS NAAT Jose David Berumen MD Allergies As of Date: 04/26/2024 Noted Allergy Reaction ALUMINUM 10/31/2013 2 - Rash AUGMENTIN (AMOXICILLIN-POT CLAVUL*03/11/2006 11 - Vomiting Date Reviewed: 04/26/2024 Reviewed by: Skye Weeks LPN - Fully Assessed Reason for Visit: Abdominal Pain [1] Cmt: Middle and lower cramping, nausea, loose stools (soft), some constipation,missed period, breast tenderness, un protected sex 04/17 Primary Visit Diagnosis:Missed menses [N92.6] Other Visit Diagnoses:Abdominal cramping [R10.9] Vaginal discharge [N89.8] Order(s):HCG QUAL UR B/O [7413692] Order #: [id number] UA DIP, URINE (POC) [5193902] Order #: [id number]. #:[id number] GONORRHEA/CHLAMYDIA NAAT [SQGCCT] Order #: [id number]. #:[id number] MARLEEN/TRICHOMONAS NAAT [SQCVTV] Order #: [id number]. #:[id number] BACTERIAL VAGINOSIS NAAT [SQBVAMP] Order #: [id number]. #:[id number] UA DIP,URINE HCG (POC) [[id number]] Order #: [id number]. #:[id number] Prescriptions as of 04/26/2024 - FLUoxetine (PROZAC) 10 mg capsule Take by mouth. - buPROPion SR (ZYBAN SR; WELLBUTRIN SR) 150 mg 12 hr tablet Take by mouth. 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 - cyclobenzaprine (FLEXERIL) 10 mg tablet (Discontinued) Take 1 tablet by mouth three times a day as needed for muscle spasm. - IBUPROFEN (ADVIL ORAL) (Discontinued) Take by mouth as needed. - MUCINEX DM 60-1,200 mg tab ER 12 hr (Discontinued) Take 1 tablet by mouth every 12 hours. - Promethazine-DM (PHENERGAN-DM) 6.25-15 mg/5 mL syrup (Discontinued) Take 5 mL by mouth at bedtime as needed for cough. - pantoprazole DR (PROTONIX) 40 mg tablet (Discontinued) Take by mouth. - ondansetron orally disintegrating (ZOFRAN ODT) 4 mg disintegrating tablet (Discontinued) - METAMUCIL SUGAR-FREE, ASPART, 3.4 gram/5.8 gram powd (Discontinued) - fluticasone (FLONASE) 50 mcg/actuation nasal spray (Discontinued) Use 2 Sprays in each nostril once daily. Rinse mouth after use. - famotidine (PEPCID) 40 mg tablet (Discontinued) Take by mouth. - dicyclomine (BENTYL) 10 mg capsule (Discontinued) - escitalopram oxalate (LEXAPRO) 10 mg tablet (Discontinued) Take 10 mg by mouth once daily. Level of Service: OFFICE/OUTPATIENT ESTABLISHED MOD MDM 30 MIN [22335] Letter Text Encounter Status:Closed by JOSE DAVID BERUMEN on 04/26/24 ALLERGIES DATE TYPE / CODE NAME / CODE REACTION SEVERITY SOURCE 10/31/2013 DRUG INGREDI/2144193 03(SNOMED CT) ALUMINUM RASH [facility] 03/11/2006 DRUG/154391523( SNOMED CT) AMOXICILLIN-POT CLAVULANATE Vomiting [facility] ENCOUNTERS ADMIT/DISCHARGE ACCOUNT NUMBER ADMITTING ENCOUNTER CLASS LOC ATION SOURCE 03/07/2025/ 5 [id number] [address]ulatory [facility] HospitalBuild ing:DANIAL [facility] 02/28/2025/ 5 [id number] Amb[address] [facility] HospitalBuild ing:DANIAL [facility] 01/24/2025 [id number] [facility] 5 [id number] Amb[facility]/28/2024/ [id number] [place], [place] [address]Room: [id number]: [address] 09/10/2024/ 5 [id number] Amb[address] [facility] 09/04/2024/ 5 [id number] Amb[address] [facility] 09/04/2024/ 5 [id number] [facility] [facility] 07/14/2024/ 5 [id number] [facility] [facility] 06/23/2024/ 4 [id number] [address] [facility] 06/08/2024/ 4 [id number] [address] [facility] 04/26/2024/ [address] [id number] [facility] PAYERS ENCOUNTER GUARANTOR PAYER SUBSCRIBER SOURCE 10/28/2024 Primary Insurance:Dariela Number: [id number] Date:[id number] Name:Commercial COLEEN COOTSDOB: [id number] [place] [address] [facility]
[2025-03-30 18:00] VITALS: BP 137/100; PULSE 113; RESP 16; TEMP 36.9; O2SAT 100; BMI 39.4
--- NOTE | 2025-03-30 18:11 | EDS_ITS ---
HPI HPI - GI History of Present Illness Chief Complaint: Abd Pain Narrative Narrative: 24-year-old female who denies significant past medical history, no past abdominal surgery, presents with epigastric pain and bloating that she has had since early this morning. She states it woke her from sleep approximately 15 hours ago. She describes epigastric pain radiating upward towards her ribs and in between. She was nauseated and vomited twice with possible blood-tinged emesis. She does not take blood thinners. She states she was having sharp pain in the epigastrium that radiated more towards the right but that has resolved. Now she has a dull achy pain in the epigastrium and feels that all day long her abdomen is becoming more bloated. She states she started having loose stool as well. Her menstrual period was last month and she may be a little late for it but she started a medication that was supposed to halt her menses for 3 months. She denies any exacerbating or alleviating factors. PFSH PFS Medical History Abdominal cramping Depression Anxiety Home Medications Medication Instructions Recorded Last Taken Type levonorgestrel 0.15 mg-ethinyl 1 tab PO QDAY #91 tabs 01/27/25 Unknown Rx estradiol 30 mcg tablets,3 mos pack(91) ondansetron 4 mg disintegrating 4 mg PO Q8H PRN nausea and 03/30/25 Unknown Rx tablet vomiting 5 days #15 tabs pantoprazole 40 mg tablet,delayed 40 mg PO DAILY 4 wee ks #28 tabs 03/30/25 Unknown Rx release Allergy/AdvReac Type Severity Reaction Status Date / Time aluminum Allergy Rash Verified 03/30/25 18:01 amoxicillin trihydrate (From Allergy Chest Verified 03/30/25 18:01 Augmentin) tightness potassium clavulanate (From Allergy Chest Verified 03/30/25 18:01 Augmentin) tightness Family History Grandmother Breast cancer HER2-positive carcinoma of breast Mother CAD (coronary artery disease) Hypertension Grandmother Diabetes Surgical History Hx of tympanostomy tubes Social History household members: other details: roommate current occupational status: employed current occupation: [employer] Smoking Status: Former smoker quit date: 12/31/21 pack-years: 3 Electronic Cigarette Use: with nicotine how long ago did patient quit smoking: former vaping alcohol intake: current alcohol intake frequency: holidays/special occasions only substance use type: marijuana caffeine: Yes what type of physical activity do you participate in: walking seatbelt use: always do you feel safe at home: Yes ROS ROS ED ROS Narrative Review of systems positive for abdominal pain and bloating. Positive nausea and vomiting x 2. No gross hematemesis. Positive loose stool. No exacerbating or alleviating factors. No fevers or chills. EXAM Physical Exam Narrative Exam Narrative: Afebrile. Vital signs noted. Nontoxic-appearing. Cardiovascular examination reveals intermittent tachycardia, lungs clear to auscultation bilaterally. Abdomen is soft with mild tenderness to palpation in the epigastrium but negative Berrios sign, no guarding or rebound. Positive bowel sounds. No tympany. Neurological examination nonfocal, nonlateralizing. Const Vital Signs: 03/30/25 18:00 Temperature 98.4 F Temperature Source Temporal Pulse Rate 113 H Respiratory Rate 16 Blood Pressure 137/100 H Blood Pressure Mean 112 Pulse Ox 100 Oxygen Delivery Method Room Air MDM MDM MDM Narrative Medical decision making narrative: Differential diagnosis includes but not limited to pancreatitis versus bowel obstruction versus peptic ulcer disease versus gastritis/gastroenteritis. We do not feel that she needs CT imaging but rather after negative , abdominal x-rays will be obtained to help rule out obstruction. I reviewed her laboratory work and she has normal white count of 7.3 with hemoglobin normal at 13.1, hematocrit 40.2, platelet count 318. Sodium is normal at 138 with potassium 3.6, chloride normal at 103. Glucose slightly elevated at 110 but she has normal anion gap of 10. BUN normal at 12 and creatinine 0.86. LFTs are normal. Total bilirubin normal at 0.29. I have low concern for acute cholecystitis. Lipase normal at 18. I doubt pancreatitis. Serum negative. X-rays of the abdomen and chest obtained and abdominal series interpreted by myself independently shows no pneumothorax, no pneumonia, no bowel obstruction. I reviewed the radiology report which confirms my independent interpretation. Upon repeat examination at approximately 1920, she states that whenever she tries to burp, she almost vomits but her nausea has improved. I discussed with her as she had concerns about gallbladder issues, that her labs are normal. She states that she has had this pain previously, and it was thought that maybe she was being worked up for an autoimmune disorder and it was recommended previously that she had a HIDA scan, but she states that currently she does not have insurance. At this point in time, I do think that she probably has more of a gastritis or possibly peptic ulcer disease. I will write her for Zofran and for PPI and encouraged follow-up with her primary care provider. I do not feel she requires admission or ultrasound imaging. She has normal laboratory work. She is afebrile. Return instructions to the emergency department were reviewed. Disposition is discharged home in stable condition. History & Record Review Discussion w/independent historian: Patient Additional record(s) reviewed:: Prior ED visit Lab Data Attestation: I reviewed the patient's lab results. Labs: Laboratory Results - last 24 hr 03/30/25 18:25 WBC 7.3 RBC 4.93 Hgb 13.1 Hct 40.2 MCV 81.5 MCH 26.6 L MCHC 32.6 RDW Std Deviation 39.2 RDW Coeff of Maryam 13.2 Plt Count 318 MPV 9.2 Immature Gran % (Auto) 0.100 Neut % (Auto) 69.7 Lymph % (Auto) 23.8 [place] % (Auto) 5.8 Eos % (Auto) 0.5 Baso % (Auto) 0.1 Absolute Neuts (auto) 5.1 Absolute Lymphs (auto) 1.74 Nucleated RBC % 0 Sodium 138 Potassium 3.6 Chloride 103 Carbon Dioxide 25.0 Anion Gap 10 BUN 12 Creatinine 0.86 Estim Creat Clear Calc 105.91 Est GFR (MDRD) Non-Af 96 BUN/Creatinine Ratio 13.9 Glucose 110 H Calcium 8.9 Total Bilirubin 0.29 AST 18 ALT 14 Alkaline Phosphatase 55 Total Protein 7.1 Albumin 4.0 Globulin 3.1 Albumin/Globulin Ratio 1.3 Lipase 18 Serum , Qual NEGATIVE Radiography Diagnostic Testing: Clinical Impression(s) from Imaging Studies Acute Abdomen Series 03/30/25 18:50 IMPRESSION: Unremarkable chest/abdominal radiographs. Reading Location: [facility] Discharge Plan Triage Chief Complaint: Abd Pain ED Provider: Gordy Lang Dx/Rx/DC Orders Clinical Impression: Epigastric pain, Nausea and vomiting Instructions: ED Vomiting (Adult), ED Epigastric Pain Uncertain Cause Prescriptions: New ondansetron 4 mg tablet,disintegrating 4 mg PO Q8H PRN (Reason: nausea and vomiting) 5 Days Qty: 15 0RF pantoprazole 40 mg tablet,delayed release (DR/EC) 40 mg PO DAILY 28 Days Qty: 28 0RF No Action levonorgestrel-ethinyl estrad 0.15 mg-30 mcg (91) tablets,dose pack,3 month 1 tab PO QDAY Qty: 91 3RF Primary Care Provider: Asya Kan Referrals: Asya Kan MD [Primary Care Provider, Internal Medicine] - 3-5 Days if not improving Activity Restrictions/Additional Instructions: Follow-up with your primary care provider in 3 to 5 days if not improving. Return with fever, new or worsening symptoms. Start a clear liquid diet, adva nce as tolerated. Print Language: Bengali Disposition Disposition: Home, Self Care
[2025-03-30] MEDS: 0.9% Normal Saline (1000mL) 1,000 ML 999 ML IV (18:23)
[2025-03-30 18:32] LABS: Hematocrit 40.2 % (37-47); Hemoglobin 13.1 g/dL (12.0-15.0); Immature Granulocytes Count 0.010 X10^3/uL (0.0-0.0); Mean Corp Hgb Conc 32.6 g/dL (32-36); Mean Corpuscular Volume 81.5 fL (81-99); Mean Platelet Vol. 9.2 fl (6.2-12.0); NRBC Flagged by Analyzer 0 % (0-5); Platelet Count 318 K/mm3 (150-450); RBC Distribution Width CV 13.2 % (11.6-14.6); RBC Distribution Width SD 39.2 fl (35.1-43.9); Red Blood Count 4.93 M/mm3 (4.2-5.4); White Blood Count 7.3 K/mm3 (4.4-11.0)
[2025-03-30 18:38] LABS: Internal QC Validated? YES +Cl - CLEAR BKGD; Record Kit Lot#, Serum Preg. 0000964736
[2025-03-30 18:43] LABS: Pregnancy, Serum, hCG Quali. NEGATIVE Negative
--- NOTE | 2025-03-30 18:50 | RAD_ITS ---
PROCEDURE: ACUTE ABDOMEN INC CHEST 03/30/2025 REASON FOR EXAM: PAIN TECHNIQUE: Procedure Code: RADABDCA Modality: DX Procedure: ACUTE ABDOMEN INC CHEST COMPARISON: None. FINDINGS: Lungs/Pleura: Clear. No pneumothorax or sizable pleural effusion. Heart/Mediastinum: Within normal limits. No vascular congestion. Bones/Soft tissues: Visualized osseous structures are intact and within normal limits. Abdomen: Nonobstructive gas pattern. No discernible free air. No unusual densities. RAD/Acute Abdomen Inc Chest IMPRESSION: Unremarkable chest/abdominal radiographs. Reading Location: [id number]
[2025-03-30 19:08] LABS: AST(SGOT) 18 U/L (<=31); Alanine Aminotransfer ALT/SGPT 14 U/L (<=34); Albumin, Serum 4.0 g/dL (3.5-5.0); Alkaline Phosphatase 55 U/L (35-104); Anion Gap 10 (5-15); BUN 12 mg/dL (4-19); BUN/Creat Ratio 13.9 RATIO (10-20); Calcium,Total 8.9 mg/dL (7.6-11.0); Carbon Dioxide 25.0 mmol/L (21.0-32.0); Chloride 103 mmol/L (98-108); Estimated Creatinine Clearance 105.91 ml/min (50-250); Globulin 3.1 g/dL (2.2-4.2); Glucose 110 mg/dL (70-99); Lipase 18 U/L (13-75); Potassium 3.6 mmol/L (3.3-5.1)
[2025-03-30 19:33] VITALS: BP 125/88; PULSE 86; RESP 16; TEMP 37; O2SAT 98
== END 2025-03-30 19:37 | disposition home or self-care (01) ==
PROVIDERS: Emergency Provider Emergency Medicine; PCP Internal Medicine; Visit Provider Emergency Medicine
DX: R10.13 Epigastric pain (principal); R11.2 Nausea with vomiting, unspecified; Z87.891 Personal history of nicotine dependence; Z79.899 Other long term (current) drug therapy
CPT/HCPCS: 74022; 80053; 83690; 84703; 85025; 96361; 96374; 99283; A4216; J2405

== ENCOUNTER 2025-05-12 10:15 | Emergency (ER) | payer SELFPAY ==
[2025-05-12 10:16] VITALS: BP 150/93; PULSE 124; RESP 20; TEMP 36.3; O2SAT 100; BMI 39.6
--- NOTE | 2025-05-12 10:43 | EX.ED.DYSGE1 ---
HPI History of Present Illness Chief Complaint: Abd Pain Narrative Narrative: Patient is a 24-year-old female who presents to the emergency department chief complaint of abdominal pain. Patient states that for the past few days now she noted that she had lower abdominal pain thought she had a urinary tract infection went to urgent care and they checked her urine and she states that her urine did not show any evidence of infection and given her abdominal exam they were concerned however sent her here for further evaluation management. States that she is on control daily and has been taking this as prescribed. [facility] Medical History Abdominal cramping Depression Anxiety Home Medications ?Medication ?Instructions ?Recorded ?Last Taken ?Type levonorgestrel 0.15 mg-ethinyl 1 tab PO QDAY #91 tabs 01/27/25 05/10/25 Rx estradiol 30 mcg tablets,3 mos pack(91) propranolol 10 mg tablet 10 mg PO DAILY PRN anxiety 05/12/25 Unknown History Allergy/AdvReac Type Severity Reaction Status Date / Time aluminum Allergy Rash Verified 05/12/25 10:55 amoxicillin trihydrate (From Allergy Chest Verified 05/12/25 10:55 Augmentin) tightness potassium clavulanate (From Allergy Chest Verified 05/12/25 10:55 Augmentin) tightness Family History Grandmother Breast cancer HER2-positive carcinoma of breast Mother CAD (coronary artery disease) Hypertension Grandmother Diabetes Surgical History Hx of tympanostomy tubes Social History household members: other details: roommate current occupational status: employed current occupation: [employer] Smoking Status: Current every day smoker tobacco type: e-cigarettes and smokeless tobacco Electronic Cigarette Use: with nicotine how long ago did patient quit smoking: former vaping alcohol intake: current alcohol intake frequency: holidays/special occasions only substance use type: marijuana caffeine: Yes what type of physical activity do you participate in: walking seatbelt use: always do you feel safe at home: Yes ROS ROS ED ROS Narrative Constitutional: Denies any fever, chills, headaches Eyes: Denies double vision Cardiovascular: Denies chest pain Respiratory: Denies shortness of breath Abdomen: Complains of abdominal pain as noted above as well as nausea denies vomiting or diarrhea : Complains of increased frequency of urination denies any burning with urination and denies any blood in her urine Neurological: Denies any numbness, weakness, tingling Musculoskeletal: Denies back pain Skin: Denies any rashes or lesions EXAM Physical Exam Narrative Exam Narrative: General: Patient is lying in bed rest comfortably did not appear to be acute distress Head: Atraumatic, normocephalic Eyes: PERRL bilaterally, EOMI bilaterally, no conjunctival injection noted Neck: Soft, supple, trachea midline Cardiovascular: Patient tachycardic with a regular rhythm Respiratory: Clear to auscultation bilaterally Abdomen: Soft, nondistended, tenderness to palpation in the left lower and right lower quadrants no rebound or guarding on exam Extremities: +5/5 strength noted in the bilateral lower extremities Neurological: Patient following commands knew that she was at [facility] years 2024 Skin: Warm, dry, tact no rashes or lesions noted Const Vital Signs: 05/12/25 10:16 05/12/25 12:00 05/12/25 13:00 Temperature 97.3 F L Temperature Source Temporal Pulse Rate 124 H 80 78 Respiratory Rate 20 H 16 18 Blood Pressure 150/93 H 127/84 H 122/70 H Blood Pressure Mean 112 98 87 Pulse Ox 100 98 98 Oxygen Delivery Method Room Air MDM MDM MDM Narrative Medical decision making narrative: Patient is a 24-year-old female who presented to the emergency department the chief complaint of abdominal pain. On the differential diagnose includes but not limited to diverticulitis, ectopic , appendicitis. Once workup is obtained and reviewed she will be reevaluated. Patient does not want any pain medication she states. Patient be given IV fluids and Zofran. Patient CBC reviewed and showed no evidence leukocytosis white blood count normal at 7.8, hemoglobin 13.2, plate count of 336. Patient sodium is 139, potassium normal 4.1, creatinine 0.67. Patient's AST and ALT are 15 and 19 respectively total bilirubin normal at 0.16. Patient lipase was noted to be normal at 27 test was negative. Patient urinalysis showed no evidence of infection. Patient CT abdomen pelvis with IV contrast showed no acute abnormalities. I went back into reevaluate the patient and discussed the findings with her. She states that there has to be something wrong and is requesting a transvaginal ultrasound. States that she talked with her mother and notes that this is not just from a viral illness and is requesting this further testing to be done. I tried to reassure her however she was adamant therefore this was ordered. Patient's transvaginal ultrasound was reviewed and showed no acute findings. I discussed results with the patient and she was advised to follow-up with her doctor in the outpatient setting and return with worsening symptoms or concerns. She is agreeable this plan all questions earns answered she was discharged home in stable condition. Lab Data Labs: Laboratory Results - last 24 hr 05/12/25 05/12/25 10:50 10:55 WBC 7.8 RBC 4.94 Hgb 13.2 Hct 39.9 MCV 80.8 L MCH 26.7 L MCHC 33.1 RDW Std Deviation 38.3 RDW Coeff of Maryam 13.2 Plt Count 336 MPV 8.9 Immature Gran % (Auto) 0.300 Neut % (Auto) 59.6 Lymph % (Auto) 34.1 Pine % (Auto) 5.0 Eos % (Auto) 0.5 Baso % (Auto) 0.5 Absolute Neuts (auto) 4.7 Absolute Lymphs (auto) 2.67 Nucleated RBC % 0 Sodium 139 Potassium 4.1 Chloride 107 Carbon Dioxide 23.9 Anion Gap 9 BUN 9 Creatinine 0.67 L Estim Creat Clear Calc 136.57 Est GFR (MDRD) Non-Af 125 BUN/Creatinine Ratio 13.1 Glucose 108 H Calcium 9.3 Total Bilirubin 0.16 AST 15 ALT 19 Alkaline Phosphatase 56 Total Protein 7.1 Albumin 3.9 Globulin 3.2 Albumin/Globulin Ratio 1.2 Lipase 27 Serum , Qual NEGATIVE Urine Color Straw Urine Clarity Clear Urine pH 7.0 Ur Specific [place] 1.005 Urine Protein 15 H Urine Glucose (UA) Normal Urine Ketones Negative Urine Occult Blood Negative Urine Nitrite Negative Urine Bilirubin Negative Urine Urobilinogen Normal Ur Leukocyte Esterase Negative Urine RBC 0 SEEN Urine WBC 0 SEEN Ur Squamous Epith Cells 0-5 SEEN Urine Bacteria 0 SEEN Urine Mucus 0 SEEN Radiography Diagnostic Testing: Clinical Impression(s) from Imaging Studies Abdomen/Pelvis CT 05/12/25 11:31 IMPRESSION: No acute abnormality is seen. Reading Location: [facility]-IR-1 Transvaginal US 05/12/25 12:31 IMPRESSION: NORMAL transvaginal PELVIC ULTRASOUND. Reading Location: [facility]--1 Discharge Plan Triage Chief Complaint: Abd Pain ED Provider: Helio Carr Dx/Rx/DC Orders Clinical Impression: Abdominal pain, Anxiety, Dizziness Prescriptions: No Action levonorgestrel-ethinyl estrad 0.15 mg-30 mcg (91) tablets,dose pack,3 month 1 tab PO QDAY Qty: 91 3RF propranolol 10 mg tablet 10 mg PO DAILY PRN (Reason: anxiety) Primary Care Provider: Asya Kan Referrals: Asya Kan MD [Primary Care Provider, Internal Medicine] Activity Restrictions/Additional Instructions: Follow-up with your doctor in the outpatient setting. Return with worsening symptoms or other concerns. Continue supportive care. Your blood work did not show any acute findings, your CT was normal no surgical findings and your ultrasound did not show any acute findings either. Print Language: Pashto Disposition Disposition: Home, Self Care
[2025-05-12] MEDS: 0.9% Normal Saline (1000mL) 1,000 ML 999 ML IV (10:58)
[2025-05-12 11:03] LABS: Mucous, Urine 0 SEEN /hpf (<or=2+); Red Blood Cells-Urine 0 SEEN /hpf (0-5)
[2025-05-12 11:10] LABS: Hematocrit 39.9 % (37-47); Hemoglobin 13.2 g/dL (12.0-15.0); Immature Granulocytes Count 0.020 X10^3/uL (0.0-0.0); Mean Corp Hgb Conc 33.1 g/dL (32-36); Mean Corpuscular Volume 80.8 fL (81-99); Mean Platelet Vol. 8.9 fl (6.2-12.0); NRBC Flagged by Analyzer 0 % (0-5); Platelet Count 336 K/mm3 (150-450); RBC Distribution Width CV 13.2 % (11.6-14.6); RBC Distribution Width SD 38.3 fl (35.1-43.9); Red Blood Count 4.94 M/mm3 (4.2-5.4); White Blood Count 7.8 K/mm3 (4.4-11.0)
[2025-05-12 11:12] LABS: Color, Urine Straw (Yellow); Glucose, Dipstick Normal (Normal); Ketone-Dipstick Negative (Negative); Leukocyte Esterase-Dipstick Negative /ul (Negative); Nitrite-Dipstick Negative (Negative); Occult Blood-Urine Negative /ul (Negative); Protein-Dipstick 15 mg/dl (Negative); Specific Gravity, Urine 1.005 (1.002-1.030); Urine Bilirubin Dipstick Negative (Negative)
[2025-05-12 11:23] LABS: Squamous Epithelial Cells - UA 0-5 SEEN /hpf (5-10)
[2025-05-12 11:24] LABS: Internal QC Validated? YES +Cl - CLEAR BKGD; Pregnancy, Serum, hCG Quali. NEGATIVE Negative; Record Kit Lot#, Serum Preg. 0000980607
--- NOTE | 2025-05-12 11:31 | CT_ITS ---
PROCEDURE: CT/Abdomen/Pelvis W IV Cont ONLY
[2025-05-12 11:50] LABS: AST(SGOT) 15 U/L (<=31); Alanine Aminotransfer ALT/SGPT 19 U/L (<=34); Albumin, Serum 3.9 g/dL (3.5-5.0); Alkaline Phosphatase 56 U/L (35-104); Anion Gap 9 (5-15); BUN 9 mg/dL (4-19); BUN/Creat Ratio 13.1 RATIO (10-20); Calcium,Total 9.3 mg/dL (7.6-11.0); Carbon Dioxide 23.9 mmol/L (21.0-32.0); Chloride 107 mmol/L (98-108); Estimated Creatinine Clearance 136.57 ml/min (50-250); Globulin 3.2 g/dL (2.2-4.2); Glucose 108 mg/dL (70-99); Lipase 27 U/L (13-75); Potassium 4.1 mmol/L (3.3-5.1)
[2025-05-12 12:00] VITALS: BP 127/84; PULSE 80; RESP 16; O2SAT 98
--- NOTE | 2025-05-12 12:31 | US_ITS ---
PROCEDURE: US/Transvaginal Non-
[2025-05-12 13:00] VITALS: BP 122/70; PULSE 78; RESP 18; O2SAT 98
[2025-05-12 14:09] VITALS: BP 122/70; PULSE 78; RESP 18; TEMP 36.8; O2SAT 98
== END 2025-05-12 14:28 | disposition home or self-care (01) ==
PROVIDERS: Emergency Provider Emergency Medicine; PCP Internal Medicine; Visit Provider Emergency Medicine
DX: R10.9 Unspecified abdominal pain (principal); R42 Dizziness and giddiness; F17.290 Nicotine dependence, other tobacco product, uncomplicated; F17.220 Nicotine dependence, chewing tobacco, uncomplicated; F41.9 Anxiety disorder, unspecified
CPT/HCPCS: 74177; 76830; 80053; 81001; 83690; 84703; 85025; 93976; 96360; 96361; 99283; Q9967; A4216